=== PATIENT | female | born 1955 | race Caucasian/White ===

== ENCOUNTER 2025-05-15 14:59 | Inpatient (IN) ==
[2025-05-15 16:31] LABS: Hematocrit (blood only) 31.3 % (37.0-47.0); Hemoglobin 10.2 g/dL (12.0-16.0); Mean Corpuscular Hemoglobin 31.5 pg (25.0-34.0); Mean Corpuscular Volume 96.6 fL (80.0-100.0); Platelet Count 411 K/uL (130-400); RDW Standard Deviation 50.4 fL (36.4-46.3); Red Blood Count 3.24 M/uL (4.20-5.40)
[2025-05-15 16:42] LABS: Base Excess VBG 1.3 mEq/L; HCO3 VBG 27 mmol/L; Oxygen Saturation VBG 71.0 %; PCO2 VBG 47 mmHg (38-50); PO2 VBG 38 mmHg; pH VBG 7.37 (7.36-7.41)
[2025-05-15 16:44] LABS: Alanine Aminotransferase 13.0 U/L (7-52); Albumin Globulin Ratio 0.8 (0.9-2); Albumin Level 2.7 gm/dl (3.4-5.0); Alkaline Phosphatase 65.0 U/L (34-104); Anion Gap 7.0 (3-11); Bilirubin,Total 0.2 mg/dl (0.2-1.0); Blood Urea Nitrogen 41.0 mg/dl (6-23); Calcium 8.9 mg/dl (8.6-10.3); Carbon Dioxide 26.0 mmol/L (21-32); Chloride 101.0 mmol/L (98-107); Creatinine Clr Calc Pharmacy 19.7 ml/min; Globulin 3.4 gm/dl (2.5-4.0); Glucose 165.0 mg/dl (70-99(Fasting)); Lipase 17.0 U/L (11-82); Magnesium 2.0 mg/dl (1.7-2.4); Potassium 4.8 mmol/L (3.5-5.1); Sodium 134.0 mmol/L (136-145); Total Protein 6.1 gm/dl (6.0-8.3)
[2025-05-15 16:54] LABS: White Blood Count 10.89 K/ul (4.8-10.8)
[2025-05-15 16:58] LABS: Acanthocytes 1+; Basophilic Stippling 1+; Immature Granulocytes # (auto) 0.04 K/uL (0.01-0.20); Immature Granulocytes % (auto) 0.4 %; Polychromasia 1+
[2025-05-15 17:00] LABS: Thyroid Stimulating Hormone 7.613 uIu/ml (0.300-4.500)
[2025-05-15 17:35] LABS: T4 Free Thyroxine 1.15 ng/dl (0.61-1.60)
--- NOTE | 2025-05-15 17:56 | Emergency Department Note ---
ED Visit Note I was consulted by the Advanced Practice Provider, MISSY Barone. I performed a substantive portion of the visit. This includes aspects of: History: Patient is a 69-year-old female presenting with left arm swelling. Patient was recently at [facility] for seizure-like activity. She reportedly has been having recent falls and was started on Keppra and had workup done at the outpatient facility. She was discharged today from the hospital but family was concerned about her and receiving appropriate care and brought her to the ER. MDM: Laboratory workup in the emergency department showed a slightly elevated white blood cell count. Creatinine is elevated 2.99. Troponin also elevated at 61, but EKG negative for any acute ischemic changes. [facility] to be [facility] for further evaluation and management. .
--- NOTE | 2025-05-15 18:11 | History & Physical Report ---
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 R29.818 LAKISHA (obstructive sleep apnea) G47.33 Frequent falls R29.6 CAD (coronary artery disease) I25.10 Status post splenectomy Z90.81 Additional Codes Prolonged Care Time - Prolonged Care Time: Yes ([id number]) (10) CKD (chronic kidney disease) Chronic kidney disease stage: unspecified stage Qualified Code(s): N18.9 - Chronic kidney disease, unspecified
--- NOTE | 2025-05-15 18:16 | Emergency Department Note ---
Impression & Plan CKD (chronic kidney disease), Progressive neurologic decline ED Provider Note CHIEF COMPLAINT: Frequent falls, altered mental status, seizure-like activity HISTORY OF PRESENTING ILLNESS: Patient is a 69-year-old female presents to the emergency department today for complaints of frequent falls, altered mental status, seizure-like activity, left arm pain. Patient's daughter reports and in summary, that over the past year the patient has had increased falls and some that caused traumatic injury requiring spleen removal. Over the past several months patient's and daughter both report that she has had seizure-like activity. About 2 weeks ago the patient's reports that he had woken up in the morning and found all the lights in the house on but was unable to find the patient. He states he walked out of the garage and she had been laying outside on the garage floor for an unknown amount of time. Patient was taken to [facility] and admitted. She was discharged from [facility]' today and brought here to [facility] for further evaluation. Over her stay at [facility] it appears the kidneys renal function has decreased with documented creatinine of 6. She had been started on Keppra 1 week ago due to concern for the seizure-like activity. While at [facility] where she has had EEGs, MRIs of the brain, and significant workups without any findings. Patient denies chest pain, sob, breathing difficulties, abdominal pain, headache, fevers/chills, nausea, vomiting, lightheadedness, dizziness, blurred vision. She does complain of left arm pain where she had a previous IV site that has caused erythema and swelling. REVIEW OF SYSTEMS: See HPI for pertinent positives and pertinent negatives. ALLERGIES: See below MEDICATIONS: See below PAST MEDICAL HISTORY: See below PHYSICAL EXAM: VITALS: Vitals are noted on the nurse's note and reviewed by myself. GENERAL: Non toxic, in no acute distress, non-diaphoretic. SKIN: Capillary refill <2 sec. EYES: PERRLA. EOMI. Conjunctivae without injection, sclerae without icterus. NOSE: Patent without discharge. MOUTH: Mucous membranes moist. Uvula midline. Airway patent. NECK: Supple without nuchal rigidity. HEART: Regular rate and rhythm without murmurs gallops or rubs. LUNGS: Clear to auscultation bilaterally without wheezes, rales or rhonchi. No retractions or accessory muscle use. ABDOMEN: Positive bowel sounds x 4. Normal tympanic percussion. Soft, nontender to palpation. MUSCULOSKELETAL: No gross musculoskeletal defects. NEURO: Patient was alert and oriented. No focal neurological deficits. DIFFERENTIAL DIAGNOSIS: Seizures, encephalopathy, metabolic encephalopathy, electrolyte abnormalities, hypothyroidism, hyperthyroidism, stroke, TIA, among others. ED COURSE AND MEDICAL DECISION MAKING: HISTORY FROM INDEPENDENT HISTORIAN: History was provided by the patient and daughter and who are at bedside and secondary historians. MONITOR: Continuous health information administrator: Order was placed for continuous health information administrator. Patient was placed on the health information administrator and continuous pulse ox. Patient was noted to be in normal sinus rhythm at an initial rate of 61 bpm per my interpretation. EKG: EKG was interpreted by myself as normal sinus rhythm at a rate of 64 bpm. INTERPRETATION OF LABS: I interpreted the labs with full lab results as below in the lab section of this note. Laboratory results pertinent to the emergent complaint are discussed in the MDM section below. The patient was advised to follow up with their PCP and/or specialist(s) for further outpatient monitoring and management of any abnormal results. INTERPRETATION OF IMAGING: Imaging studies were interpreted by myself and read by radiology as per the imaging section of this note. The patient was advised to follow up with their PCP and/or specialist(s) for further outpatient management of any non-emergent abnormal findings. CHRONIC MEDICAL/SOCIAL CONDITIONS AFFECTING CARE: Chronic health issues that have been ongoing for the patient. Encephalopathy concerns. Recent and frequent hospital admissions. EXTERNAL RECORDS REVIEWED: Patient's been [facility] records from 05/12/2025 to 05/15/2025 including labs and imaging studies. ESCALATION OF CARE CONSIDERED: I considered admission on this patient due to ongoing neurological complaints. CONSULTATIONS: I had a meaningful discussion about this patient with Dr. Hayes who agrees with my assessment and the treatment plan. SUMMARY: I examined the patient for complaints of neurological decline. A physical exam and history were performed. Nursing notes, EMR, and medication list were personally reviewed. Patient presents appearing well and hemodynamically stable. Was just d/c from [facility] and brought here for further evaluation. I reviewed the patients medical history and recent hospitalization from [facility]. Patients daughter has discussed case with Dr. Walker for plan for admission. Will do a cardiac workup. Discussed CTs of head but family reluctant as she has aready had CT and MRIs with worsening renal function. Will obtain images from [facility] and hold on CTs. CBC with mild leukocytosis with white blood cell count of 10.89. Hemoglobin 10.2 without thrombocytopenia. Venous blood gas is normal. CMP without electrolyte abnormalities. Creatinine 2.99 and BUN 41. Troponin noted to be 55.4 however patient is without chest pain or shortness of breath and EKG without signs of active ischemia. BNP was 117. TSH was 7.613. Magnesium 2.0. Keppra level ordered and sent out. I spoke with Dr. Walker for admission and the patient was accepted. X-ray and extremity venous study was still pending on admission. Patient declined any pain medications or antiemetics here in the emergency department today. DIAGNOSIS: CKD, neurological decline TREATMENT PLAN/DISCHARGE INSTRUCTIONS: Admit to hospitalist services. The chart was completed utilizing [employer] Speech voice recognition software.Grammatical errors, random word insertions, pronoun errors, and incomplete sentences are an occasional consequence of this system due to software limitations, ambient noise, and hardware issues.Any formal questions or concerns about the content, text, or information contained within the body of this dictation should be directly addressed to the physician for clarification. Past Med/Surg History Problem List (Updated 05/15/25 @ 21:51 by Geovani Rubin DO) Type 1 diabetes Elevated troponin Status post splenectomy Rib fractures Obesity Left arm pain Progressive neurologic decline (Acute) CKD (chronic kidney disease) (Acute) Social History Smoking Status: Never smoker Allergies Allergies Allergy/AdvReac Type Severity Reaction Status Date / Time allopurinol Allergy Unknown Unknown Verified 05/15/25 18:32 atorvastatin Allergy Unknown Unknown Verified 05/15/25 18:32 cephalexin Allergy Unknown Unknown Verified 05/15/25 18:32 ciprofloxacin Allergy Unknown Unknown Verified 05/15/25 18:32 Penicillins Allergy Unknown Unknown Verified 05/15/25 18:32 sulfamethoxazole Allergy Unknown Unknown Verified 05/15/25 18:32 [From Sulfamethoxazole-Trimethoprim] trimethoprim Allergy Unknown Unknown Verified 05/15/25 18:32 [From Sulfamethoxazole-Trimethoprim] Home Meds Home Medications Medication Instructions Recorded Confirmed acetaminophen 500 mg tablet 1,000 mg PO Q6H PRN Pain 05/15/25 05/15/25 (Tylenol Extra Strength) amlodipine 2.5 mg tablet 2.5 mg PO QAM 05/15/25 05/15/25 aspirin 81 mg tablet,delayed 81 mg PO DAILY 05/15/25 05/15/25 release biotin 10 mg tablet 10 mg PO DAILY 05/15/25 05/15/25 calcitriol 0.25 mcg capsule 0.25 mcg PO QAM 05/15/25 05/15/25 cholecalciferol (vitamin D3) 125 125 mcg PO DAILY 05/15/25 05/15/25 mcg (5,000 unit) tablet (Vitamin D3) ezetimibe 10 mg tablet (Zetia) 10 mg PO HS 05/15/25 05/15/25 famotidine 20 mg tablet (Pepcid) 20 mg PO BID 05/15/25 05/15/25 ferrous sulfate 325 mg (65 mg 325 mg PO DAILY 05/15/25 05/15/25 iron) tablet folic acid 1 mg tablet 1 mg PO DAILY 05/15/25 05/15/25 furosemide 20 mg tablet (Lasix) 20 mg PO DAILY 05/15/25 05/15/25 gabapentin 100 mg capsule 100 mg PO BID 05/15/25 05/15/25 insulin glargine U-300 conc 300 30 unit subcut BID 05/15/25 05/15/25 unit/mL (3 mL) subcutaneous pen (Toujeo Max U-300 SoloStar) insulin lispro 100 unit/mL 1 sliding scale dose subcut TIDM 05/15/25 05/15/25 subcutaneous solution (Humalog U-100 Insulin) latanoprost 0.005 % eye drops 1 drp OPB HS 05/15/25 05/15/25 levetiracetam 500 mg tablet 500 mg PO BID 05/15/25 05/15/25 levothyroxine 150 mcg tablet 150 mcg PO DAILYBB 05/15/25 05/15/25 losartan 100 mg tablet 100 mg PO DAILY 05/15/25 05/15/25 metoprolol tartrate 25 mg tablet 25 mg PO BID 05/15/25 05/15/25 omega-3 fatty acids 1,000 mg 1,000 mg PO DAILY 05/15/25 05/15/25 capsule pantoprazole 40 mg tablet,delayed 40 mg PO DAILY 05/15/25 05/15/25 release sennosides 8.6 mg-docusate sodium 2 tab-cap PO HS 05/15/25 05/15/25 50 mg tablet (Senna Plus) simvastatin 20 mg tablet 20 mg PO HS 05/15/25 05/15/25 turmeric root extract 500 mg tablet 1,000 mg PO DAILY 05/15/25 05/15/25 vitamin B complex 1 tab PO HS 05/15/25 05/15/25 Results & Data (ED) Vital Signs Vital Signs - 24 hr 05/15/25 15:06 05/15/25 15:23 05/15/25 16:00 Temperature 36.1 C L Temperature Source Temporal Artery Scan Pulse Rate 61 60 64 Respiratory Rate 18 13 Blood Pressure 164/71 H 143/65 H Blood Pressure Mean 102 90 Pulse Oximetry 98 94 Sepsis Recent Fever Within 48 Hours No Sepsis New/Unexplained Change in Mental Status No Sepsis Action Taken by Nursing No Action Required 05/15/25 16:11 05/15/25 16:30 05/15/25 16:58 Temperature Temperature Source Pulse Rate 65 61 Respiratory Rate 15 12 Blood Pressure 140/70 137/66 Blood Pressure Mean 103 107 Pulse Oximetry 98 99 97 Sepsis Recent Fever Within 48 Hours Sepsis New/Unexplained Change in Mental Status Sepsis Action Taken by Nursing 05/15/25 18:30 05/15/25 19:00 Temperature Temperature Source Pulse Rate 71 67 Respiratory Rate 14 13 Blood Pressure 172/75 H 167/72 H Blood Pressure Mean 121 126 Pulse Oximetry 98 98 Sepsis Recent Fever Within 48 Hours Sepsis New/Unexplained Change in Mental Status Sepsis Action Taken by Nursing Laboratory Data 05/15/25 15:40 05/15/25 15:40 Lab Results 05/15/25 05/15/25 05/15/25 Range/Units 15:40 17:57 19:41 WBC 10.89 H (4.8-10.8) K/ul RBC 3.24 L (4.20-5.40) M/uL Hgb 10.2 L (12.0-16.0) g/dL Hct 31.3 L (37.0-47.0) % MCV 96.6 (80.0-100.0) fL MCH 31.5 (25.0-34.0) pg MCHC 32.6 (32.0-36.0) g/dL RDW Std Deviation 50.4 H (36.4-46.3) fL RDW Coeff of Shruthi 14.3 (11.5-14.5) % Plt Count 411 H (130-400) K/uL MPV 11.7 (9.4-12.4) fL Immature Gran % (Auto) 0.4 % Neut % (Auto) 75.1 % Lymph % (Auto) 9.2 % Izard % (Auto) 11.8 % Eos % (Auto) 2.8 % Baso % (Auto) 0.7 % Neut # (Auto) 8.18 H (1.40-6.50) K/uL Lymph # (Auto) 1.00 L (1.20-3.40) K/uL Izard # (Auto) 1.29 H (0.11-0.59) K/uL Eos # (Auto) 0.30 (0.00-0.50) K/uL Baso # (Auto) 0.08 (0.00-0.20) K/uL Immature Gran # (Auto) 0.04 (0.01-0.20) K/uL Polychromasia 1+ Basophilic Stippling 1+ Acanthocytes (Spur) 1+ ESR 86 H (0-30) mm/hr Sodium 134 L (136-145) mmol/L Potassium 4.8 (3.5-5.1) mmol/L Chloride 101 (98-107) mmol/L Carbon Dioxide 26 (21-32) mmol/L Anion Gap 7 (3-11) BUN 41 H (6-23) mg/dl Creatinine 2.99 H (0.6-1.2) mg/dl Est Cr Clr Drug Dosing 19.7 ml/min eGFR 16.49 BUN/Creatinine Ratio 13.7 (10-20) Glucose 165 H (70-99(Fasting)) mg/dl Uric Acid 5.1 (2.6-7.2) mg/dl Calcium 8.9 (8.6-10.3) mg/dl Phosphorus 4.9 (2.5-4.9) mg/dl Magnesium 2.0 (1.7-2.4) mg/dl Total Bilirubin 0.2 (0.2-1.0) mg/dl AST 17 (13-39) U/L ALT 13 (7-52) U/L Alkaline Phosphatase 65 (34-104) U/L Ammonia 18.0 (18-72) umol/L Troponin I High Sens 61.0 H* 55.4 H* (0-14) pg/ml C-Reactive Protein 10.30 H (0-0.5) mg/dl B-Natriuretic Peptide 117 H (0-100) pg/ml Total Protein 6.1 (6.0-8.3) gm/dl Albumin 2.7 L (3.4-5.0) gm/dl Globulin 3.4 (2.5-4.0) gm/dl Albumin/Globulin Ratio 0.8 L (0.9-2) Lipase 17 (11-82) U/L Procalcitonin 0.12 (0-0.5) ng/ml TSH 7.613 H (0.300-4.500) uIu/ml Free T4 1.15 (0.61-1.60) ng/dl Administered Medications Sodium Chloride (Nss) 1,000 mls @ 80 mls/hr IV .[id number] DILLON Stop: 05/16/25 08:29 Last Admin: 05/15/25 21:09 Dose: 80 mls/hr Documented By: SW Discontinued Medications Hydrocodone Bitart/Acetaminophen (Hydrocodone/Acetaminophen 7.5/325mg Tab) 1 tab PO NOW STA Stop: 05/15/25 18:23 Last Admin: 05/15/25 18:35 Dose: 1 tab Documented By: akv Imaging Data Radiologist's Impression: Chest X-Ray 05/15/25 16:11 Clinical History: Chest pain Technique: A frontal view of the chest was obtained Findings: There is a small left pleural effusion. There is left lower lobe opacity that could be due to either atelectasis or pneumonia. The heart is mildly enlarged. No definite pneumothorax is seen. There is no definite pulmonary nodule. There is an apparent all fracture of the left seventh rib. There is a right chest port port with its tip in the SVC Impression: 1. Small left pleural effusion 2. Left lower lobe opacity that could be due to either atelectasis or pneumonia 3. Mild cardiomegaly ACT 112: Positive. There are findings on this exam that require communication between the performing entity and the patient following Patient Test Result Information Act ([place] ACT 112) guidelines. Electronically signed by Giovanni Hicks 05-15-2025 6:43 PM Extremity Venous Study 05/15/25 16:14 Technique: Doppler sonography was performed of the left arm veins Findings: There is apparent occlusive thrombus in the left cephalic vein, extending approximately 5 cm in length The left jugular, subclavian, axillary, brachial, basilic, radial, and ulnar veins all appear patent with normal anechoic lumens and full compressibility. Expected Doppler waveforms were noted. No definite soft tissue mass or fluid collection is seen. Impression: 1. SVT involving the left cephalic vein 2. No evidence of left arm DVT ACT 112: Positive. There are findings on this exam that require communication between the performing entity and the patient following Patient Test Result Information Act ([place] ACT 112) guidelines. Electronically signed by Giovanni Hicks 05-15-2025 6:11 PM Humerus X-Ray 05/15/25 18:21 INDICATION: Trauma TECHNIQUE: 2 views of the left humerus were obtained. COMPARISON: None FINDINGS: No displaced acute osseous process is identified. IMPRESSION: No displaced acute osseous process is identified. Limited evaluation of the left elbow. Please refer to separately performed elbow CT for further details. Electronically signed by Robert Everett 05-15-2025 8:40 PM Shoulder X-Ray 05/15/25 18:21 INDICATION: Trauma TECHNIQUE: 3 views of the left shoulder were obtained. COMPARISON: None FINDINGS: No displaced acute osseous process is identified in the left shoulder. Age-indeterminate and possibly acute traumatic fractures of the left seventh through the ninth ribs. IMPRESSION: No displaced acute osseous process is identified in the left shoulder. Age-indeterminate and possibly acute traumatic fractures of the left seventh through the ninth ribs. Electronically signed by Robert Everett 05-15-2025 8:40 PM Discharge Plan Visit Data Chief Complaint: Arm Pain Stated Complaint: FREQ FALLS, AMS SEIZURE LIKE LT ARM UNABLE TO MOVE ED Provider: Maryana Hayes ED Midlevel Provider: Aleida Veras Discharge Problem: CKD (chronic kidney disease), Progressive neurologic decline Patient Disposition: Admitted As Inpatient Condition: Good Discharge Problem: CKD (chronic kidney disease) Qualifiers: Chronic kidney disease stage: unspecified stage Qualified Code(s): N18.9 - Chronic kidney disease, unspecified
[2025-05-15] MEDS: HYDROCODONE/ACETAMINOPHEN 7.5/325MG TAB PO STA (18:35)
--- NOTE | 2025-05-15 18:44 | XRay Report ---
Clinical History: Chest pain Technique: A frontal view of the chest was obtained Findings: There is a small left pleural effusion. There is left lower lobe opacity that could be due to either atelectasis or pneumonia. The heart is mildly enlarged. No definite pneumothorax is seen. There is no definite pulmonary nodule. There is an apparent all fracture of the left seventh rib. There is a right chest port port with its tip in the SVC Impression: 1. Small left pleural effusion 2. Left lower lobe opacity that could be due to either atelectasis or pneumonia 3. Mild cardiomegaly ACT 112: Positive. There are findings on this exam that require communication between the performing entity and the patient following Patient Test Result Information Act ([place] ACT 112) guidelines. Electronically signed by Giovanni Hicks 05-15-2025 6:43 PM
[2025-05-15 19:48] LABS: Uric Acid 5.1 mg/dl (2.6-7.2)
--- NOTE | 2025-05-15 20:40 | XRay Report ---
INDICATION: Trauma TECHNIQUE: 2 views of the left humerus were obtained. COMPARISON: None FINDINGS: No displaced acute osseous process is identified. IMPRESSION: No displaced acute osseous process is identified. Limited evaluation of the left elbow. Please refer to separately performed elbow CT for further details. Electronically signed by Robert Everett 05-15-2025 8:40 PM
--- NOTE | 2025-05-15 20:40 | XRay Report ---
INDICATION: Trauma TECHNIQUE: 3 views of the left shoulder were obtained. COMPARISON: None FINDINGS: No displaced acute osseous process is identified in the left shoulder. Age-indeterminate and possibly acute traumatic fractures of the left seventh through the ninth ribs. IMPRESSION: No displaced acute osseous process is identified in the left shoulder. Age-indeterminate and possibly acute traumatic fractures of the left seventh through the ninth ribs. Electronically signed by Robert Everett 05-15-2025 8:40 PM
[2025-05-15] MEDS: SODIUM CHLORIDE 0.9% 1,000 ML IV SCH (21:09)
--- NOTE | 2025-05-15 21:27 | Orthopedic Consultation ---
Date of Consultation May 15, 2025 Assessment & Plan (1) Left arm pain: (2) Obesity: (3) Rib fractures: (4) Status post splenectomy: (5) Elevated troponin: (6) Type 1 diabetes: (7) CKD (chronic kidney disease): Plan Alina is a 61-year-old female who is quite medically complex who presents to the hospital via her family for second opinion after she was recently admitted to [facility]. As detailed in the HPI, the patient sustained a fall on 05/06/2025 with noted seizure activity and because of this she was admitted to the hospital in [place]. She had a trauma workup revealing acute rib fractures and she had workup for her seizures which was unrevealing. Patient developed left arm pain about 4 to 5 days ago and the patient and her family note that this coincided with placement of an IV in her left upper extremity. That IV site became red and inflamed and the IV site was then changed, however patient and her family were upset that nothing was being done about her arm pain and as such this prompted their presentation to [facility]. On my evaluation this afternoon, the patient does not appear floridly ill. She does appear to be in pain with regards to her left upper extremity. She does state that she is hungry and would like to eat some dinner. Her vital signs are reassuring and that her heart rate is less than 90, respirations less than 20, and she is afebrile. Her white blood cell count is less than 12. Her ESR and CRP are elevated and although these can signify infection, this can be a confusing picture given her recent hospitalization, her kidney failure, and her history of falls. Prior to my evaluation, the patient had x-rays of her shoulder and humerus as well as a CT scan of her elbow. No acute osseous abnormalities are identified. On my evaluation, the patient seem to be locating most of her pain in her shoulder. With isolated motion of the whole wrist and elbow, she was relatively pain-free, however with attempted motion of her shoulder, she did have significant pain. Given her elevated inflammatory markers, and without another notable source of this pain, I did recommend arthrocentesis of the left shoulder to rule out infection versus gout. See separate procedure note for full details, however the patient was in agreement. We returned approximately 10 cc of cloudy appearing fluid which was sent to the lab for analysis. On the off chance that this does represent an infection, this may require operative intervention. Will keep the patient n.p.o. after midnight tonight pending the evaluation of these lab results. Based on her clinical presentation, and considering this pain has been present for about 5 days, my suspicion is not infection, rather that this could make the gout. Another possible consideration for her left upper extremity pain might be something intra-abdominal. The patient did have a history of a splenectomy. Consider further workup with a CT scan of the abdomen. Also, the patient shoulder aspiration is negative, some of the pain in her left upper extremity may be coming from her new rib fractures on that same side. Further recommendations to follow results of the fluid analysis. History of Present Illness Reason for Consultation: left arm pain Requesting Physician: Dr Walker History of Present Illness Patient is a 69-year-old female presents to the emergency department today for left arm pain. She also has complaints of frequent falls, altered mental status, seizure-like activity in recent history. Patient's daughter was previously at bedside and reported the following to the ER staff and myself over the phone when I contacted her: Over the past year the patient has had increased falls. One of these falls in February of this year caused traumatic injury requiring spleen removal. Over the past several months patient's and daughter both report that she has had seizure-like activity. About 2 weeks ago the patient's reports that he had woken up in the morning and found all the lights in the house on but was unable to find the patient. He walked out of the garage and she had been laying outside on the garage floor for an unknown amount of time this was on 05/06/25. Patient was taken to [facility] and admitted. While admitted there, she had a trauma workup done which was positive for multiple left-sided rib fractures, some of which were old from the fall that occurred in February but the patient's daughter notes that she was told that her mother had sustained 1 or 2 new ones. And she had a workup for seizures which was negative. Her family was displeased with the care she was receiving in [place] so she was discharged from [facility] today and brought here to [facility] for further evaluation. Over her stay at [facility] it appears the kidneys renal function has decreased with documented creatinine of 6. She had been started on Keppra 1 week ago due to concern for the seizure-like activity. While at [facility] where she has had EEGs, MRIs of the brain, and significant workups without any findings. Patient denies chest pain, sob, breathing difficulties, abdominal pain, headache, fevers/chills, nausea, vomiting, lightheadedness, dizziness, blurred vision. She does complain of left arm pain where she had a previous IV site that has caused erythema and swelling. With regards of left arm pain, the patient and her daughter note that this started over the weekend. The patient states that her entire left arm hurts and it began at the site of an IV that was placed in her left upper extremity while admitted at the other hospital. Patient notes pain in her left upper extremity anytime her arm is moved. Allergies Allergy/AdvReac Type Severity Reaction Status Date / Time allopurinol Allergy Unknown Unknown Verified 05/15/25 18:32 atorvastatin Allergy Unknown Unknown Verified 05/15/25 18:32 cephalexin Allergy Unknown Unknown Verified 05/15/25 18:32 ciprofloxacin Allergy Unknown Unknown Verified 05/15/25 18:32 Penicillins Allergy Unknown Unknown Verified 05/15/25 18:32 sulfamethoxazole Allergy Unknown Unknown Verified 05/15/25 18:32 [From Sulfamethoxazole-Trimethoprim] trimethoprim Allergy Unknown Unknown Verified 05/15/25 18:32 [From Sulfamethoxazole-Trimethoprim] Home Medications Medication Instructions Recorded Confirmed Type acetaminophen 500 mg tablet 1,000 mg PO Q6H PRN Pain 05/15/25 05/15/25 History (Tylenol Extra Strength) amlodipine 2.5 mg tablet 2.5 mg PO QAM 05/15/25 05/15/25 History aspirin 81 mg tablet,delayed 81 mg PO DAILY 05/15/25 05/15/25 History release biotin 10 mg tablet 10 mg PO DAILY 05/15/25 05/15/25 History calcitriol 0.25 mcg capsule 0.25 mcg PO QAM 05/15/25 05/15/25 History cholecalciferol (vitamin D3) 125 125 mcg PO DAILY 05/15/25 05/15/25 History mcg (5,000 unit) tablet (Vitamin D3) ezetimibe 10 mg tablet (Zetia) 10 mg PO HS 05/15/25 05/15/25 History famotidine 20 mg tablet (Pepcid) 20 mg PO BID 05/15/25 05/15/25 History ferrous sulfate 325 mg (65 mg 325 mg PO DAILY 05/15/25 05/15/25 History iron) tablet folic acid 1 mg tablet 1 mg PO DAILY 05/15/25 05/15/25 History furosemide 20 mg tablet (Lasix) 20 mg PO DAILY 05/15/25 05/15/25 History gabapentin 100 mg capsule 100 mg PO BID 05/15/25 05/15/25 History insulin glargine U-300 conc 300 30 unit subcut BID 05/15/25 05/15/25 History unit/mL (3 mL) subcutaneous pen (Toujeo Max U-300 SoloStar) insulin lispro 100 unit/mL 1 sliding scale dose subcut TIDM 05/15/25 05/15/25 History subcutaneous solution (Humalog U-100 Insulin) latanoprost 0.005 % eye drops 1 drp OPB HS 05/15/25 05/15/25 History levetiracetam 500 mg tablet 500 mg PO BID 05/15/25 05/15/25 History levothyroxine 150 mcg tablet 150 mcg PO DAILYBB 05/15/25 05/15/25 History losartan 100 mg tablet 100 mg PO DAILY 05/15/25 05/15/25 History metoprolol tartrate 25 mg tablet 25 mg PO BID 05/15/25 05/15/25 History omega-3 fatty acids 1,000 mg 1,000 mg PO DAILY 05/15/25 05/15/25 History capsule pantoprazole 40 mg tablet,delayed 40 mg PO DAILY 05/15/25 05/15/25 History release sennosides 8.6 mg-docusate sodium 2 tab-cap PO HS 05/15/25 05/15/25 History 50 mg tablet (Senna Plus) simvastatin 20 mg tablet 20 mg PO HS 05/15/25 05/15/25 History turmeric root extract 500 mg tablet 1,000 mg PO DAILY 05/15/25 05/15/25 History vitamin B complex 1 tab PO HS 05/15/25 05/15/25 History Patient History Social History Smoking Status: Never smoker Review of Systems Review of Systems: All systems reviewed & are unremarkable except as noted in HPI & below Physical Exam Physical Exam: On physical examination, the patient has an area of erythema in her mid forearm at the site of her previous IV stick. This area has been marked and the erythema is well within the purple marker. Patient has diffuse edema to her left hand extending to the level of her mid forearm. She has no pain with passive range of motion of the fingers or wrist. No pain with passive range of motion of the elbow. She does have pain with passive range of motion of the shoulder. She has intact sensation C5-T1. She has intact AIN, PIN, radial, median, ulnar nerve motor function. She has palpable radial pulse. Results & Data Vital Signs (Past 12 Hours) Vital Signs Temp Pulse Pulse Resp BP BP Pulse Ox 05/15/25 20:00 65 18 159/72 H 97 05/15/25 19:57 67 05/15/25 19:00 67 13 167/72 H 98 05/15/25 18:30 71 14 172/75 H 98 05/15/25 16:58 61 12 137/66 97 05/15/25 16:30 65 15 140/70 99 05/15/25 16:11 98 05/15/25 16:00 64 13 143/65 H 94 05/15/25 15:23 60 05/15/25 15:06 36.1 C L 61 18 164/71 H 98 O2 Del Method 05/15/25 20:00 Room Air 05/15/25 19:57 05/15/25 19:00 05/15/25 18:30 05/15/25 16:58 05/15/25 16:30 05/15/25 16:11 05/15/25 16:00 05/15/25 15:23 05/15/25 15:06 Laboratory Results White blood cell count 10.9 ESR 86 mm/h CRP 10.30 mg/dL Troponin 55.4 pg/mL Creatinine 2.99 mg/dL Diagnostic Findings X-rays of the left shoulder and humerus were personally interpreted and reviewed. These demonstrate no acute osseous abnormalities. CT scan of the left elbow was personally interpreted and reviewed. These demonstrate no acute osseous abnormalities. (7) CKD (chronic kidney disease) Chronic kidney disease stage: unspecified stage Qualified Code(s): N18.9 - Chronic kidney disease, unspecified
[2025-05-15] MEDS ORDERED: ONDANSETRON INJ 2 MG/ML 2 ML VIAL IV PRN (22:20)
--- NOTE | 2025-05-15 22:28 | Procedure Note ---
Procedure Note Date of Service May 15, 2025 Note Left shoulder arthrocentesis procedure note Surgeon: Geovani Rubin DO Preop diagnosis: Left shoulder pain Postop diagnosis: Same Indications: 69-year-old female with left shoulder pain without obvious signs of infection, but with elevated inflammatory markers considering no other known cause of left shoulder pain, my recommendation is for arthrocentesis of the left shoulder. I did discuss with the patient the risk the procedure which include but are not limited to loss of life/limb, infection, need for surgery in the future, bleeding, introduction of infection into the joint, dry tap, inconclusive results. She understood the risks and wished to proceed. Procedure: The anatomy of the left upper extremity was marked out and the posterior approach to the glenohumeral joint 2 cm distal and medial to the lateral tip of the acromion was identified. The posterior aspect the left shoulder was prepped and draped in standard sterile fashion using ChloraPrep. An 18-gauge spinal needle was introduced into the glenohumeral joint. 10 cc of cloudy appearing joint fluid was returned. The syringe was then attached, labeled the patient's sticker, and sent to lab for analysis. Patient tolerated the procedure well without any immediate signs of complication. Postop plan: The patient will be n.p.o. after midnight pending the results of the fluid analysis. Coding
[2025-05-15] MEDS: DAPTOmycin 500 MG in SYRINGE 0 ML IV SCH (23:01)
[2025-05-15] MEDS: DOCUSATE SODIUM/SENNA 50/8.6MG TAB PO SCH (23:11)
[2025-05-15] MEDS: ACETAMINOPHEN 500 MG TAB PO SCH (23:11)
[2025-05-15 23:14] LABS: Color Synovial Fluid WHI; Mononuclear WBC Synovial 7.6 %; Polynuclear WBC Synovial 92.4 %; RBC Synovial Fluid Auto 10000 /uL; Source Synovial Fluid Shoulder; WBC Synovial Fluid Auto 75250 /ul (0-200)
[2025-05-15] MEDS: LANTUS PER UNIT CHARGE SQ SCH (23:17)
[2025-05-15] MEDS: INSULIN ASPART PER UNIT CHARGE SC SCH (23:18)
[2025-05-15] MEDS: LATANOPROST 0.005% OP SOLN 2.5 ML BTL OPB SCH (23:21)
[2025-05-15] MEDS: levETIRAcetam 500 MG TAB PO SCH (23:25)
[2025-05-15] MEDS: SIMVASTATIN 20 MG TAB PO SCH (23:25)
[2025-05-15] MEDS: EZETIMIBE 10 MG TAB PO SCH (23:25)
[2025-05-15] MEDS: GABAPENTIN 100 MG CAP PO SCH (23:25)
[2025-05-15] MEDS: METOPROLOL TARTRATE 25 MG TAB PO SCH (23:25)
--- NOTE | 2025-05-16 00:45 | CT Scan Report ---
Exam(s): CT LEFT ELBOW Without Contrast EXAM: CT Left Upper Extremity Without Intravenous Contrast, Elbow CLINICAL HISTORY: Reason for exam: severe elbow pain, swelling; effusion? Fracture?. TECHNIQUE: Axial computed tomography images of the left elbow without intravenous contrast. CTDI is 26.22 mGy and DLP is 665.73 mGy-cm. Automated exposure control was utilized for the study. A dose lowering technique was utilized adhering to the principles of ALARA. COMPARISON: X-rays dated 05/15/2025. FINDINGS: Artifact degrades image quality limiting the exam. Bones/joints: No acute fracture. No dislocation. There is an olecranon spur. Soft tissues: There is soft tissue swelling and edema. There are soft tissue calcifications noted. The visualized musculature is grossly unremarkable.. IMPRESSION: Limited exam. Soft tissue edema and swelling. Olecranon spur. There is soft tissue calcifications which may represent calcification of the triceps tendon. If further evaluation is clinically necessary, consider correlation with MRI Electronically signed by: Mainor Cannon MD 05/16/25 00:44 AM
--- NOTE | 2025-05-16 03:31 | Magnetic Resonance Report ---
EXAM: MR shoulder LT wo con CLINICAL HISTORY: shoulder pain, likely septic arthritis TECHNIQUE: Multisequential and multiplanar images of the left shoulder were submitted for review without contrast. COMPARISON: None. FINDINGS: Subscapularis tendon shows increased T2 signal with mild thickening, consistent with tendinopathy. Near-complete tear of supraspinatus tendon is seen over a length of approximately 2 cm with an AP diameter of 2.3 cm. Ill-defined bone marrow edema is seen within the superior facet of greater tuberosity of humerus at the articular attachment of supraspinatus tendon, with associated cystic changes and cortical erosion. Moderate glenohumeral joint effusion is present. Subacromial/subdeltoid bursa shows hyperintense fluid on T2-weighted and PDFS sequences, consistent with bursitis. Subcoracoid bursa demonstrates hyperintense fluid on T2-weighted and PDFS sequences, consistent with bursitis. Osteoarthritic changes seen in acromioclavicular joint in form of reduced joint space, periarticular osteophytes and minimal joint effusion. There is a Type II acromion present. Few axillary lymph nodes seen, measuring 15 x 11 mm is noted. The coracohumeral distance and acromiohumeral space is normal. The infraspinatus, teres minor and biceps tendon appear normal. No evidence of tendinosis, tenosynovitis or tear is seen. Labrum appears normal. No evidence of tear or paralabral cyst is seen. The articular cartilage overlying the glenoid fossa is normal. No loose body or debris present within the glenohumeral joint. IMPRESSION: ? Moderate glenohumeral joint effusion. ? Subacromial/subdeltoid and subcoracoid bursitis. ? Subscapularis tendinopathy. ? Near-complete tear of supraspinatus tendon. ? Bone marrow edema with cystic changes and erosion in superior facet of greater tuberosity. ? Early osteoarthritic changes in acromioclavicular joint. ? Few axillary lymph nodes. Electronically signed by Veto Aponte 05-16-2025 03:31 AM
[2025-05-16] MEDS: LEVOTHYROXINE SODIUM 150 MCG TABLET PO SCH (06:02)
[2025-05-16] MEDS ORDERED: HEPARIN 100 UNIT/ML 5ML FLUSH FLUSH PRN (06:15)
[2025-05-16 06:33] LABS: Anion Gap 8.0 (3-11); Blood Urea Nitrogen 37.0 mg/dl (6-23); Calcium 8.9 mg/dl (8.6-10.3); Carbon Dioxide 26.0 mmol/L (21-32); Chloride 102.0 mmol/L (98-107); Creatinine Clr Calc Pharmacy 22.8 ml/min; Glucose 252.0 mg/dl (70-99(Fasting)); Potassium 4.9 mmol/L (3.5-5.1); Sodium 136.0 mmol/L (136-145)
[2025-05-16 06:48] LABS: Hematocrit (blood only) 32.0 % (37.0-47.0); Hemoglobin 10.5 g/dL (12.0-16.0); Mean Corpuscular Hemoglobin 31.1 pg (25.0-34.0); Mean Corpuscular Volume 94.7 fL (80.0-100.0); Platelet Count 442 K/uL (130-400); RDW Standard Deviation 48.0 fL (36.4-46.3); Red Blood Count 3.38 M/uL (4.20-5.40); White Blood Count 11.89 K/ul (4.8-10.8)
--- NOTE | 2025-05-16 08:00 | Orthopedic Progress Note ---
Date of Service May 16, 2025 Assessment & Plan (1) Septic arthritis of shoulder, left: (2) Left arm pain: (3) Obesity: (4) Rib fractures: (5) Status post splenectomy: (6) Elevated troponin: (7) Type 1 diabetes: (8) CKD (chronic kidney disease): (9) CAD (coronary artery disease): (10) Seizure-like activity: (11) Hypothyroidism: Plan Alina is a 61-year-old female who is quite medically complex who presented to the to the hospital via her family for second opinion after she was recently admitted to [facility]. As detailed in the HPI, the patient sustained a fall on 05/06/2025 with noted seizure activity and because of this she was admitted to the hospital in [place]. She had a trauma workup revealing acute rib fractures and she had workup for her seizures which was unrevealing. Patient developed left arm pain about 4 to 5 days ago and the patient and her family note that this coincided with placement of an IV in her left upper extremity. That IV site became red and inflamed and the IV site was then changed, however patient and her family were upset that nothing was being done about her arm pain and as such this prompted their presentation to [facility]. On my evaluation last evening, the patient did not appear floridly ill. She did appear to be in pain with regards to her left upper extremity. Her vital signs were reassuring in that her heart rate is less than 90, respirations less than 20, and she is afebrile. Her white blood cell count is less than 12. Her ESR and CRP are elevated and although these can signify infection, this can be a confusing picture given her recent hospitalization, her kidney failure, and her history of falls. Prior to my evaluation, the patient had x-rays of her shoulder and humerus as well as a CT scan of her elbow. No acute osseous abnormalities were identified. On my evaluation, the patient seemed to be locating most of her pain in her shoulder. With isolated motion of the whole wrist and elbow, she was relatively pain-free, however with attempted motion of her shoulder, she did have significant pain. Given her elevated inflammatory markers, and without another notable source of this pain, I did recommend arthrocentesis of the left shoulder to rule out infection versus gout. Her fluid analysis returned with 75,000 white blood cells 92% of which were polymorphonuclear sites. Her Gram stain showed gram-positive cocci and many PMNs. Based on her aspiration results, I do believe this represents a septic shoulder. I do long discussion with the patient and her daughter regarding the nature of this condition. We discussed in great detail the pathoanatomy, pathophysiology, treatment options. I expressed to them that in general we attempt to get these patients to the operating room as quickly as possible for irrigation and debridement to prevent significant chondrolysis And worsening of the infection. This patient's arm pain seem to have started about 5 days ago, so I do suspect that she has already had significant chondrolysis. I expressed to the patient and her daughter that the plan would be for left shoulder irrigation and debridement with possible placement of a drain via an open or arthroscopic approach. We discussed a great detail the risks of the surgery which include but are not limited to loss of life/limb, DVT/PE, pain, infection, incomplete relief of pain, incomplete clearance of the infection, need for additional surgery, iatrogenic injury to bone/nerve/tendon/vessel. The alternative surgical management be for continued IV antibiotics or potentially serial aspirations. I believe this carries with it a higher risk of continued infec tion and incomplete relief of pain. After thorough discussion of the risk, benefits, alternatives to surgical management, the patient and her daughter were both interested in operative care. We will plan to take the patient to the operating room as quickly as possible once an OR is available. Surgical plan: Left shoulder open versus arthroscopic irrigation and debridement with possible drain placement. Please keep NPO. Start broad-spectrum antibiotics. Will require infectious disease consultation and likely long-term IV antibiotics via PICC line. Admission and Anticipated Discharge Date Admission Date: May 15, 2025 Subjective patient seen and examined in her hospital bed. She is sleeping comfortably. She notes continued pain in her left shoulder. Review of Systems Review of Systems: All systems reviewed & are unremarkable except as noted in HPI & below Physical Exam Physical Exam: On physical examination, the patient has an area of erythema in her mid forearm at the site of her previous IV stick. This area has been marked and the erythema is well within the purple marker. Patient has diffuse edema to her left hand extending to the level of her mid forearm. She has no pain with passive range of motion of the fingers or wrist. No pain with passive range of motion of the elbow. She does have pain with passive range of motion of the shoulder. She has intact sensation C5-T1. She has intact AIN, PIN, radial, median, ulnar nerve motor function. She has palpable radial pulse. Results & Data Vital Signs (Past 12 Hours) Vital Signs Temp Pulse Pulse Resp BP Pulse Ox Pulse Ox 05/16/25 07:21 37.4 C 66 12 147/61 H 94 05/16/25 02:40 37.1 C 68 18 148/71 H 95 05/15/25 22:59 37.3 C 73 20 158/65 H 94 05/15/25 22:20 94 05/15/25 21:37 77 05/15/25 21:30 05/15/25 21:30 37.3 C 70 14 162/67 H 94 05/15/25 20:00 65 18 159/72 H 97 05/15/25 19:57 67 O2 Del Method O2 Del Method 05/16/25 07:21 Room Air 05/16/25 02:40 Room Air 05/15/25 22:59 Room Air 05/15/25 22:20 Room Air 05/15/25 21:37 05/15/25 21:30 Room Air 05/15/25 21:30 Room Air 05/15/25 20:00 Room Air 05/15/25 19:57 Laboratory Results White blood cell count 11.89 Aspiration results: 75,000 white blood cells, 92% PMNs Diagnostic Findings MRI of the left shoulder personally interpreted and reviewed. Demonstrates a left shoulder joint effusion without any surrounding soft tissue abscess. There is interstitial tearing of the superior rotator cuff. (8) CKD (chronic kidney disease) Chronic kidney disease stage: unspecified stage Qualified Code(s): N18.9 - Chronic kidney disease, unspecified
[2025-05-16] MEDS ORDERED: DEXTROSE 50% 50 ML SYRINGE IV PRN (08:15)
[2025-05-16] MEDS ORDERED: GLUCOSE 40% GEL 15 GM TUBE PO PRN (08:15)
[2025-05-16] MEDS ORDERED: GLUCAGON FOR INJ 1 MG VIAL SQ PRN (08:15)
[2025-05-16] MEDS ORDERED: GLUCOSE 10 TAB/TUBE PO PRN (08:15)
[2025-05-16 08:32] LABS: Influenza A virus by PCR Negative (Neg); Influenza B virus by PCR Negative (Neg); SARS CoV2 RNA(COVID-19) Ceph NEGATIVE (Negative)
[2025-05-16] MEDS: ASPIRIN 81 MG ECTAB PO SCH (09:02)
[2025-05-16] MEDS: CALCITRIOL 0.25 MCG CAPSULE PO SCH (09:03)
[2025-05-16] MEDS: LANTUS PER UNIT CHARGE SQ ONE (09:06)
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
[2025-05-16] MEDS: HEPARIN SOD 5,000 UNIT/0.5 ML VIAL SQ SCH (09:07)
[2025-05-16] MEDS: FOLIC ACID 1 MG TAB PO SCH (09:07)
[2025-05-16] MEDS: CHOLECALCIFEROL 125 MCG (5,000 UNITS) TAB PO SCH (09:08)
[2025-05-16] MEDS: FAMOTIDINE 20 MG TAB PO SCH (09:14)
[2025-05-16 10:06] LABS: Appearance Urine Clear (Clear); Bacteria Urine Automated None Seen (None Seen); Epithelial Cell Urine Auto 0-2 /hpf (0-2); Glucose Urine UA 1+ (Negative); RBC Urine Automated 0-2 /hpf (0-2); WBC Urine Automated 0-5 /hpf (0-5)
[2025-05-16] MEDS ORDERED: ONDANSETRON INJ 2 MG/ML 2 ML VIAL ONE (12:17)
[2025-05-16] MEDS ORDERED: DEXAMETHASONE SOD INJ 4 MG/ML VIAL ONE (12:17)
[2025-05-16] MEDS ORDERED: PROPOFOL IV EMULSION 10 MG/ML 20 ML VIAL IV ONE (12:17)
[2025-05-16] MEDS ORDERED: LIDOCAINE 2% 2 ML VIAL/AMP(20MG/ML) INFIL ONE (12:17)
[2025-05-16] MEDS ORDERED: MIDAZOLAM HCL 1 MG/ML 2ML VIAL ONE (12:18)
[2025-05-16] MEDS ORDERED: ROCURONIUM BROMIDE 10 MG/ML 5 ML VIAL IV ONE (12:18)
--- NOTE | 2025-05-16 12:38 | History & Physical Bridge Note ---
Date of Service May 16, 2025 History & Physical Bridge Note I have examined the patient, reviewed the History & Physical and in the interval since the performance of the History & Physical I have noted the following changes of clinical significance: Alina is a 61-year-old female who is quite medically complex who presented to the to the hospital via her family for second opinion after she was recently admitted to [facility]. As detailed in the HPI, the patient sustained a fall on 05/06/2025 with noted seizure activity and because of this she was admitted to the hospital in [place]. She had a trauma workup revealing acute rib fractures and she had workup for her seizures which was unrevealing. Patient developed left arm pain about 4 to 5 days ago and the patient and her family note that this coincided with placement of an IV in her left upper extremity. That IV site became red and inflamed and the IV site was then changed, however patient and her family were upset that nothing was being done about her arm pain and as such this prompted their presentation to [facility]. On my evaluation last evening, the patient did not appear floridly ill. She did appear to be in pain with regards to her left upper extremity. Her vital signs were reassuring in that her heart rate is less than 90, respirations less than 20, and she is afebrile. Her white blood cell count is less than 12. Her ESR and CRP are elevated and although these can signify infection, this can be a confusing picture given her recent hospitalization, her kidney failure, and her history of falls. Prior to my evaluation, the patient had x-rays of her shoulder and humerus as well as a CT scan of her elbow. No acute osseous abnormalities were identified. On my evaluation, the patient seemed to be locating most of her pain in her shoulder. With isolated motion of the whole wrist and elbow, she was relatively pain-free, however with attempted motion of her shoulder, she did have significant pain. Given her elevated inflammatory markers, and without another notable source of this pain, I did recommend arthrocentesis of the left shoulder to rule out infection versus gout. Her fluid analysis returned with 75,000 white blood cells 92% of which were polymorphonuclear sites. Her Gram stain showed gram-positive cocci and many PMNs. Based on her aspiration results, I do believe this represents a septic shoulder. I do long discussion with the patient and her daughter regarding the nature of this condition. We discussed in great detail the pathoanatomy, pathophysiology, treatment options. I expressed to them that in general we attempt to get these patients to the operating room as quickly as possible for irrigation and debridement to prevent significant chondrolysis And worsening of the infection. This patient's arm pain seem to have started about 5 days ago, so I do suspect that she has already had significant chondrolysis. I expressed to the patient and her daughter that the plan would be for left shoulder irrigation and debridement with possible placement of a drain via an open or arthroscopic approach. We discussed a great detail the risks of the surgery which include but are not limited to loss of life/limb, DVT/PE, pain, infection, incomplete relief of pain, incomplete clearance of the infection, need for additional surgery, iatrogenic injury to bone/nerve/tendon/vessel. The alternative surgical management be for continued IV antibiotics or potentially serial as pirations. I believe this carries with it a higher risk of continued infection and incomplete relief of pain. After thorough discussion of the risk, benefits, alternatives to surgical management, the patient and her daughter were both interested in operative care. We will plan to take the patient to the operating room as quickly as possible once an OR is available. Surgical plan: Left shoulder open versus arthroscopic irrigation and debridement with possible drain placement.
[2025-05-16] MEDS: LACTATED RINGER'S 1,000 ML IV SCH (12:41)
[2025-05-16] MEDS ORDERED: PROMETHAZINE HCL 6.25 MG in SODIUM CHLORIDE 0.9% 50 ML IV PRN (12:53)
[2025-05-16] MEDS ORDERED: ATROPINE SULFATE 0.1 MG/ML 10ML SYR IV PRN (12:53)
[2025-05-16] MEDS ORDERED: HYDROmorphone INJ 2 MG/ML SYR/VIAL IV PRN (12:53)
--- NOTE | 2025-05-16 12:53 | Anesthesiology Consultation ---
Date of Service May 16, 2025 Assessment & Plan ASA ASA3 Proposed Anesthesia Anesthesia Type: General Risk / Benefits Reviewed With: PT / POA / Parent / Guardian, Accepts Plan and Informed Consent Obtained History Surgery Operation Date: 05/16/25 07:00 Proposed Procedures p Left Shoulder Arthroscopic Versus Open Incision and Drainage - Geovani Rubin DO Height/Weight Height: 5 ft 5 in Weight: 87.4 kg Allergies Allergy/AdvReac Type Severity Reaction Status Date / Time allopurinol Allergy Unknown Unknown Verified 05/15/25 18:32 atorvastatin Allergy Unknown Unknown Verified 05/15/25 18:32 cephalexin Allergy Unknown Unknown Verified 05/15/25 18:32 ciprofloxacin Allergy Unknown Unknown Verified 05/15/25 18:32 Penicillins Allergy Unknown Unknown Verified 05/15/25 18:32 sulfamethoxazole Allergy Unknown Unknown Verified 05/15/25 18:32 [From Sulfamethoxazole-Trimethoprim] trimethoprim Allergy Unknown Unknown Verified 05/15/25 18:32 [From Sulfamethoxazole-Trimethoprim] Medications Home Medications Medication Instructions Recorded Confirmed Last Taken acetaminophen 500 mg tablet 1,000 mg PO Q6H PRN Pain 05/15/25 05/15/25 Unknown (Tylenol Extra Strength) amlodipine 2.5 mg tablet 2.5 mg PO QAM 05/15/25 05/15/25 05/15/25 aspirin 81 mg tablet,delayed 81 mg PO DAILY 05/15/25 05/15/25 05/15/25 release biotin 10 mg tablet 10 mg PO DAILY 05/15/25 05/15/25 05/15/25 calcitriol 0.25 mcg capsule 0.25 mcg PO QAM 05/15/25 05/15/25 05/15/25 cholecalciferol (vitamin D3) 125 125 mcg PO DAILY 05/15/25 05/15/25 05/15/25 mcg (5,000 unit) tablet (Vitamin D3) ezetimibe 10 mg tablet (Zetia) 10 mg PO HS 05/15/25 05/15/25 05/14/25 famotidine 20 mg tablet (Pepcid) 20 mg PO BID 05/15/25 05/15/25 05/15/25 08:00 ferrous sulfate 325 mg (65 mg 325 mg PO DAILY 05/15/25 05/15/25 05/15/25 iron) tablet folic acid 1 mg tablet 1 mg PO DAILY 05/15/25 05/15/25 05/15/25 furosemide 20 mg tablet (Lasix) 20 mg PO DAILY 05/15/25 05/15/25 05/15/25 gabapentin 100 mg capsule 100 mg PO BID 05/15/25 05/15/25 05/15/25 08:00 insulin glargine U-300 conc 300 30 unit subcut BID 05/15/25 05/15/25 05/15/25 08:00 unit/mL (3 mL) subcutaneous pen (Toujeo Max U-300 SoloStar) insulin lispro 100 unit/mL 1 sliding scale dose subcut TIDM 05/15/25 05/15/25 05/15/25 12:00 subcutaneous solution (Humalog U-100 Insulin) latanoprost 0.005 % eye drops 1 drp OPB HS 05/15/25 05/15/25 05/14/25 levetiracetam 500 mg tablet 500 mg PO BID 05/15/25 05/15/25 05/15/25 08:00 levothyroxine 150 mcg tablet 150 mcg PO DAILYBB 05/15/25 05/15/25 05/15/25 losartan 100 mg tablet 100 mg PO DAILY 05/15/25 05/15/25 05/15/25 metoprolol tartrate 25 mg tablet 25 mg PO BID 05/15/25 05/15/25 05/15/25 08:00 omega-3 fatty acids 1,000 mg 1,000 mg PO DAILY 05/15/25 05/15/25 05/15/25 capsule pantoprazole 40 mg tablet,delayed 40 mg PO DAILY 05/15/25 05/15/25 05/15/25 release sennosides 8.6 mg-docusate sodium 2 tab-cap PO HS 05/15/25 05/15/25 05/14/25 50 mg tablet (Senna Plus) simvastatin 20 mg tablet 20 mg PO HS 05/15/25 05/15/25 05/14/25 turmeric root extract 500 mg tablet 1,000 mg PO DAILY 05/15/25 05/15/25 05/15/25 vitamin B complex 1 tab PO HS 05/15/25 05/15/25 05/14/25 Active Medications Generic Name Dose Route Start Last Admin Trade Name Freq PRN Reason Stop Dose Admin Acetaminophen 500 mg 05/15/25 22:20 05/16/25 09:02 Acetaminophen 500 Mg Tab PO 06/14/25 22:19 500 mg TID DILLON Administration Amlodipine Besylate 2.5 mg 05/16/25 09:00 05/16/25 09:02 Amlodipine Besylate 5 Mg Tab PO 06/15/25 08:59 2.5 mg QAM DILLON Administration Aspirin 81 mg 05/16/25 09:00 05/16/25 09:02 Aspirin 81 Mg Ectab PO 06/15/25 08:59 81 mg DAILY DILLON Administration Calcitriol 0.25 mcg 05/16/25 09:00 05/16/25 09:03 Calcitriol 0.25 Mcg Capsule PO 06/15/25 08:59 0.25 mcg QAM DILLON Administration Ezetimibe 10 mg 05/15/25 22:20 05/15/25 23:25 Ezetimibe 10 Mg Tab PO 06/14/25 22:19 10 mg HS DILLON Administration Famotidine 20 mg 05/16/25 09:00 05/16/25 09:14 Famotidine 20 Mg Tab PO 06/15/25 08:59 20 mg DAILY DILLON Administration Folic Acid 1 mg 05/16/25 09:00 05/16/25 09:07 Folic Acid 1 Mg Tab PO 06/15/25 08:59 1 mg DAILY DILLON Administration Gabapentin 100 mg 05/15/25 22:20 05/16/25 09:07 Gabapentin 100 Mg Cap PO 06/14/25 22:19 100 mg BID DILLON Administration Heparin Sodium (Porcine) 5,000 units 05/16/25 09:00 05/16/25 09:07 Heparin Sod 5,000 Unit/0.5 Ml Vial SQ 06/15/25 08:59 5,000 units Q12 DILLON Administration Daptomycin 500 mg/ Syringe 10 mls @ 6.25 mls/min 05/15/25 21:30 05/15/25 23:01 IV 05/17/25 21:29 6.25 mls/min Q24H DILLON Administration Protocol Lactated Ringer's 1,000 mls @ 15 mls/hr 05/16/25 12:45 05/16/25 12:41 Lr IV 05/19/25 12:44 15 mls/hr .Q24H DILLON Administration Insulin Aspart 0 units 05/15/25 22:20 05/16/25 12:04 Insulin Aspart Per Unit Charge SC 06/14/25 22:19 Not Given Q6 DILLON Insulin Glargine 20 units 05/15/25 22:20 05/15/25 23:17 Lantus Per Unit Charge SQ 06/14/25 22:19 20 units HS DILLON Administration Latanoprost 1 drops 05/15/25 22:20 05/15/25 23:21 Latanoprost 0.005% Op Soln 2.5 Ml Btl OPB 06/14/25 22:19 1 drops HS DILLON Administration Levetiracetam 500 mg 05/15/25 22:20 05/16/25 09:07 Levetiracetam 500 Mg Tab PO 06/14/25 22:19 500 mg BID DILLON Administration Levothyroxine Sodium 150 mcg 05/16/25 06:30 05/16/25 06:02 Levothyroxine Sodium 150 Mcg Tablet PO 06/15/25 06:29 150 mcg DAILYBB DILLON Administration Metoprolol Tartrate 25 mg 05/15/25 22:20 05/16/25 09:08 Metoprolol Tartrate 25 Mg Tab PO 06/14/25 22:19 25 mg BID DILLON Administration Pantoprazole Sodium 40 mg 05/16/25 09:00 05/16/25 09:08 Pantoprazole 40 Mg Tab PO 06/15/25 08:59 40 mg DAILY DILLON Administration Senna/Docusate Sodium 2 tab 05/15/25 22:20 05/15/25 23:11 Docusate Sodium/Senna 50/8.6mg Tab PO 06/14/25 22:19 2 tab HS DILLON Administration Simvastatin 20 mg 05/15/25 22:20 05/15/25 23:25 Simvastatin 20 Mg Tab PO 06/14/25 22:19 20 mg HS DILLON Administration Vitamin D 125 mcg 05/16/25 09:00 05/16/25 09:08 Cholecalciferol 125 Mcg (5,000 Units) Tab PO 06/15/25 08:59 125 mcg DAILY DILLON Administration NPO Date Last Intake of Fluids: 05/15/25 Time Last Intake of Fluids: 20:00 Date Last Intake of Solids: 05/15/25 Time Last Intake of Solids: 20:00 Past Medical History Medical History Hypothyroidism Seizure-like activity multiple events ; seizure vs syncope CAD (coronary artery disease) no h/o stents History of ITP Frequent falls LAKISHA (obstructive sleep apnea) not on CPAP/BIPAP - cannot tolerate such Progressive neurologic decline CKD (chronic kidney disease) Rib fractures 02/2025 Type 1 diabetes diagnosed age 18 Essential hypertension Splenic laceration 02/2025 Exercise / Class Metabolic Activity II 4-5 Yardwork/Stairs/Walk up hill Past Family History Family History Mother , age 77; had multiple CVAs Stroke Past Surgical History Surgical History 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 - [facility] Past Anesthesia History No Hx of Anesthesia Complications and No Family Hx of Anesthesia Complications History of PONV No Hx of PONV and No Hx of Motion Sickness Social History Smoking Status: Never smoker Do You Dip or Chew Tobacco: No Smoking End Date: pt smoked when in high school Hx Alcohol Use: Yes alcohol intake frequency: holidays/special occasions only Hx Substance Use: No substance use type: does not use Physical Exam Vital Signs Last Vital Signs Temp 37.6 C H 05/16/25 12:29 Pulse 64 05/16/25 12:29 Resp 16 05/16/25 12:29 BP 159/63 H 05/16/25 12:29 Pulse Ox 94 05/16/25 12:29 O2 Del Method Room Air 05/16/25 12:29 Constitutional + obese; no acute distress ENMT Mouth: no dentition abnormality Thyromental Distance: > or= 3.5 Finger Breadths Mallampati Class: III Neck normal visual inspection Respiratory normal respiratory effort; no respiratory distress Auscultation: lungs clear to auscultation bilaterally Cardiovascular Rate/Rhythm: regular rate and regular rhythm Heart Sounds: no murmur Musculoskeletal Spine: normal cervical ROM Psychiatric Orientation: alert and oriented x 3 Testing Laboratory Results 05/16/25 05:41 05/16/25 05:41 Urine Color Yellow 05/16/25 09:20 Urine Appearance Clear (Clear) 05/16/25 09:20 Urine pH 5.5 (4.5-7.5) 05/16/25 09:20 Ur Specific Spencer 1.015 (1.000-1.030) 05/16/25 09:20 Urine Protein 3+ (Negative) H 05/16/25 09:20 Urine Glucose (UA) 1+ (Negative) H 05/16/25 09:20 Urine Ketones Negative (Negative) 05/16/25 09:20 Urine Nitrite Negative (Negative) 05/16/25 09:20 Ur Leukocyte Esterase Negative (Negative) 05/16/25 09:20 Urine WBC (Auto) 0-5 /hpf (0-5) 05/16/25 09:20 Urine RBC (Auto) 0-2 /hpf (0-2) 05/16/25 09:20 U Hyaline Cast (Auto) 3-5 /lpf (0-2) H 05/16/25 09:20 U Epithel Cells (Auto) 0-2 /hpf (0-2) 05/16/25 09:20 Urine Bacteria (Auto) None Seen (None Seen) 05/16/25 09:20 05/15/25 Unknown Gram Stain - Final Shoulder,Left Aerobic and Anaerobic Culture - Preliminary No growth to date. 05/16/25 05/16/25 05/16/25 11:52 07:18 05:58 POC Glucose 117 H 227 H 271 H Day of Procedure Evaluation. Date of Surgery May 16, 2025 Height/Weight Height: 5 ft 5 in Weight: 87.4 kg Vital Signs Last Vital Signs Temp 37.6 C H 05/16/25 12:29 Pulse 64 05/16/25 12:29 Resp 16 05/16/25 12:29 BP 159/63 H 05/16/25 12:29 Pulse Ox 94 05/16/25 12:29 O2 Del Method Room Air 05/16/25 12:29 Allergies Allergy/AdvReac Type Severity Reaction Status Date / Time allopurinol Allergy Unknown Unknown Verified 05/15/25 18:32 atorvastatin Allergy Unknown Unknown Verified 05/15/25 18:32 cephalexin Allergy Unknown Unknown Verified 05/15/25 18:32 ciprofloxacin Allergy Unknown Unknown Verified 05/15/25 18:32 Penicillins Allergy Unknown Unknown Verified 05/15/25 18:32 sulfamethoxazole Allergy Unknown Unknown Verified 05/15/25 18:32 [From Sulfamethoxazole-Trimethoprim] trimethoprim Allergy Unknown Unknown Verified 05/15/25 18:32 [From Sulfamethoxazole-Trimethoprim] Medications Home Medications Medication Instructions Recorded Confirmed Last Taken acetaminophen 500 mg tablet 1,000 mg PO Q6H PRN Pain 05/15/25 05/15/25 Unknown (Tylenol Extra Strength) amlodipine 2.5 mg tablet 2.5 mg PO QAM 05/15/25 05/15/25 05/15/25 aspirin 81 mg tablet,delayed 81 mg PO DAILY 05/15/25 05/15/25 05/15/25 release biotin 10 mg tablet 10 mg PO DAILY 05/15/25 05/15/25 05/15/25 calcitriol 0.25 mcg capsule 0.25 mcg PO QAM 05/15/25 05/15/25 05/15/25 cholecalciferol (vitamin D3) 125 125 mcg PO DAILY 05/15/25 05/15/25 05/15/25 mcg (5,000 unit) tablet (Vitamin D3) ezetimibe 10 mg tablet (Zetia) 10 mg PO HS 05/15/25 05/15/25 05/14/25 famotidine 20 mg tablet (Pepcid) 20 mg PO BID 05/15/25 05/15/25 05/15/25 08:00 ferrous sulfate 325 mg (65 mg 325 mg PO DAILY 05/15/25 05/15/25 05/15/25 iron) tablet folic acid 1 mg tablet 1 mg PO DAILY 05/15/25 05/15/25 05/15/25 furosemide 20 mg tablet (Lasix) 20 mg PO DAILY 05/15/25 05/15/25 05/15/25 gabapentin 100 mg capsule 100 mg PO BID 05/15/25 05/15/25 05/15/25 08:00 insulin glargine U-300 conc 300 30 unit subcut BID 05/15/25 05/15/25 05/15/25 08:00 unit/mL (3 mL) subcutaneous pen (Toujeo Max U-300 SoloStar) insulin lispro 100 unit/mL 1 sliding scale dose subcut TIDM 05/15/25 05/15/25 05/15/25 12:00 subcutaneous solution (Humalog U-100 Insulin) latanoprost 0.005 % eye drops 1 drp OPB HS 05/15/25 05/15/25 05/14/25 levetiracetam 500 mg tablet 500 mg PO BID 05/15/25 05/15/25 05/15/25 08:00 levothyroxine 150 mcg tablet 150 mcg PO DAILYBB 05/15/25 05/15/25 05/15/25 losartan 100 mg tablet 100 mg PO DAILY 05/15/25 05/15/25 05/15/25 metoprolol tartrate 25 mg tablet 25 mg PO BID 05/15/25 05/15/25 05/15/25 08:00 omega-3 fatty acids 1,000 mg 1,000 mg PO DAILY 05/15/25 05/15/25 05/15/25 capsule pantoprazole 40 mg tablet,delayed 40 mg PO DAILY 05/15/25 05/15/25 05/15/25 release sennosides 8.6 mg-docusate sodium 2 tab-cap PO HS 05/15/25 05/15/25 05/14/25 50 mg tablet (Senna Plus) simvastatin 20 mg tablet 20 mg PO HS 05/15/25 05/15/25 05/14/25 turmeric root extract 500 mg tablet 1,000 mg PO DAILY 05/15/25 05/15/25 05/15/25 vitamin B complex 1 tab PO HS 05/15/25 05/15/25 05/14/25 Active Medications Generic Name Dose Route Start Last Admin Trade Name Alberto PRN Reason Stop Dose Admin Acetaminophen 500 mg 05/15/25 22:20 05/16/25 09:02 Acetaminophen 500 Mg Tab PO 06/14/25 22:19 500 mg TID DILLON Administration Amlodipine Besylate 2.5 mg 05/16/25 09:00 05/16/25 09:02 Amlodipine Besylate 5 Mg Tab PO 06/15/25 08:59 2.5 mg QAM DILLON Administration Aspirin 81 mg 05/16/25 09:00 05/16/25 09:02 Aspirin 81 Mg Ectab PO 06/15/25 08:59 81 mg DAILY DILLON Administration Calcitriol 0.25 mcg 05/16/25 09:00 05/16/25 09:03 Calcitriol 0.25 Mcg Capsule PO 06/15/25 08:59 0.25 mcg QAM DILLON Administration Ezetimibe 10 mg 05/15/25 22:20 05/15/25 23:25 Ezetimibe 10 Mg Tab PO 06/14/25 22:19 10 mg HS DILLON Administration Famotidine 20 mg 05/16/25 09:00 05/16/25 09:14 Famotidine 20 Mg Tab PO 06/15/25 08:59 20 mg DAILY DILLON Administration Folic Acid 1 mg 05/16/25 09:00 05/16/25 09:07 Folic Acid 1 Mg Tab PO 06/15/25 08:59 1 mg DAILY DILLON Administration Gabapentin 100 mg 05/15/25 22:20 05/16/25 09:07 Gabapentin 100 Mg Cap PO 06/14/25 22:19 100 mg BID DILLON Administration Heparin Sodium (Porcine) 5,000 units 05/16/25 09:00 05/16/25 09:07 Heparin Sod 5,000 Unit/0.5 Ml Vial SQ 06/15/25 08:59 5,000 units Q12 DILLON Administration Daptomycin 500 mg/ Syringe 10 mls @ 6.25 mls/min 05/15/25 21:30 05/15/25 23:01 IV 05/17/25 21:29 6.25 mls/min Q24H DILLON Administration Protocol Lactated Ringer's 1,000 mls @ 15 mls/hr 05/16/25 12:45 05/16/25 12:41 Lr IV 05/19/25 12:44 15 mls/hr .Q24H DILLON Administration Insulin Aspart 0 units 05/15/25 22:20 05/16/25 12:04 Insulin Aspart Per Unit Charge SC 06/14/25 22:19 Not Given Q6 DILLON Insulin Glargine 20 units 05/15/25 22:20 05/15/25 23:17 Lantus Per Unit Charge SQ 06/14/25 22:19 20 units HS DILLON Administration Latanoprost 1 drops 05/15/25 22:20 05/15/25 23:21 Latanoprost 0.005% Op Soln 2.5 Ml Btl OPB 06/14/25 22:19 1 drops HS DILLON Administration Levetiracetam 500 mg 05/15/25 22:20 05/16/25 09:07 Levetiracetam 500 Mg Tab PO 06/14/25 22:19 500 mg BID DILLON Administration Levothyroxine Sodium 150 mcg 05/16/25 06:30 05/16/25 06:02 Levothyroxine Sodium 150 Mcg Tablet PO 06/15/25 06:29 150 mcg DAILYBB DILLON Administration Metoprolol Tartrate 25 mg 05/15/25 22:20 05/16/25 09:08 Metoprolol Tartrate 25 Mg Tab PO 06/14/25 22:19 25 mg BID DILLON Administration Pantoprazole Sodium 40 mg 05/16/25 09:00 05/16/25 09:08 Pantoprazole 40 Mg Tab PO 06/15/25 08:59 40 mg DAILY DILLON Administration Senna/Docusate Sodium 2 tab 05/15/25 22:20 05/15/25 23:11 Docusate Sodium/Senna 50/8.6mg Tab PO 06/14/25 22:19 2 tab HS DILLON Administration Simvastatin 20 mg 05/15/25 22:20 05/15/25 23:25 Simvastatin 20 Mg Tab PO 06/14/25 22:19 20 mg HS DILLON Administration Vitamin D 125 mcg 05/16/25 09:00 05/16/25 09:08 Cholecalciferol 125 Mcg (5,000 Units) Tab PO 06/15/25 08:59 125 mcg DAILY DILLON Administration Past Anesthesia History No Hx of Anesthesia Complications and No Family Hx of Anesthesia Complications History of PONV No Hx of PONV and No Hx of Motion Sickness NPO Date Last Intake of Fluids: 05/15/25 Time Last Intake of Fluids: 20:00 Date Last Intake of Solids: 05/15/25 Time Last Intake of Solids: 20:00 HCG & FBG Results 05/16/25 05/16/25 05/16/25 11:52 07:18 05:58 POC Glucose 117 H 227 H 271 H Home Medications Home Medications Medication Instructions Recorded Confirmed Last Taken acetaminophen 500 mg tablet 1,000 mg PO Q6H PRN Pain 05/15/25 05/15/25 Unknown (Tylenol Extra Strength) amlodipine 2.5 mg tablet 2.5 mg PO QAM 05/15/25 05/15/25 05/15/25 aspirin 81 mg tablet,delayed 81 mg PO DAILY 05/15/25 05/15/25 05/15/25 release biotin 10 mg tablet 10 mg PO DAILY 05/15/25 05/15/25 05/15/25 calcitriol 0.25 mcg capsule 0.25 mcg PO QAM 05/15/25 05/15/25 05/15/25 cholecalciferol (vitamin D3) 125 125 mcg PO DAILY 05/15/25 05/15/25 05/15/25 mcg (5,000 unit) tablet (Vitamin D3) ezetimibe 10 mg tablet (Zetia) 10 mg PO HS 05/15/25 05/15/25 05/14/25 famotidine 20 mg tablet (Pepcid) 20 mg PO BID 05/15/25 05/15/25 05/15/25 08:00 ferrous sulfate 325 mg (65 mg 325 mg PO DAILY 05/15/25 05/15/25 05/15/25 iron) tablet folic acid 1 mg tablet 1 mg PO DAILY 05/15/25 05/15/25 05/15/25 furosemide 20 mg tablet (Lasix) 20 mg PO DAILY 05/15/25 05/15/25 05/15/25 gabapentin 100 mg capsule 100 mg PO BID 05/15/25 05/15/25 05/15/25 08:00 insulin glargine U-300 conc 300 30 unit subcut BID 05/15/25 05/15/25 05/15/25 08:00 unit/mL (3 mL) subcutaneous pen (Toujeo Max U-300 SoloStar) insulin lispro 100 unit/mL 1 sliding scale dose subcut TIDM 05/15/25 05/15/25 05/15/25 12:00 subcutaneous solution (Humalog U-100 Insulin) latanoprost 0.005 % eye drops 1 drp OPB HS 05/15/25 05/15/25 05/14/25 levetiracetam 500 mg tablet 500 mg PO BID 05/15/25 05/15/25 05/15/25 08:00 levothyroxine 150 mcg tablet 150 mcg PO DAILYBB 05/15/25 05/15/25 05/15/25 losartan 100 mg tablet 100 mg PO DAILY 05/15/25 05/15/25 05/15/25 metoprolol tartrate 25 mg tablet 25 mg PO BID 05/15/25 05/15/25 05/15/25 08:00 omega-3 fatty acids 1,000 mg 1,000 mg PO DAILY 05/15/25 05/15/25 05/15/25 capsule pantoprazole 40 mg tablet,delayed 40 mg PO DAILY 05/15/25 05/15/2525 release sennosides 8.6 mg-docusate sodium 2 tab-cap PO HS 05/15/25 05/15/25 05/14/25 50 mg tablet (Senna Plus) simvastatin 20 mg tablet 20 mg PO HS 05/15/25 05/15/25 05/14/25 turmeric root extract 500 mg tablet 1,000 mg PO DAILY 05/15/25 05/15/25 05/15/25 vitamin B complex 1 tab PO HS 05/15/25 05/15/25 05/14/25 Active Medications Generic Name Dose Route Start Last Admin Trade Name Akinq PRN Reason Stop Dose Admin Acetaminophen 500 mg 05/15/25 22:20 05/16/25 09:02 Acetaminophen 500 Mg Tab PO 06/14/25 22:19 500 mg TID DILLON Administration Amlodipine Besylate 2.5 mg 05/16/25 09:00 05/16/25 09:02 Amlodipine Besylate 5 Mg Tab PO 06/15/25 08:59 2.5 mg QAM DILLON Administration Aspirin 81 mg 05/16/25 09:00 05/16/25 09:02 Aspirin 81 Mg Ectab PO 06/15/25 08:59 81 mg DAILY DILLON Administration Calcitriol 0.25 mcg 05/16/25 09:00 05/16/25 09:03 Calcitriol 0.25 Mcg Capsule PO 06/15/25 08:59 0.25 mcg QAM DILLON Administration Ezetimibe 10 mg 05/15/25 22:20 05/15/25 23:25 Ezetimibe 10 Mg Tab PO 06/14/25 22:19 10 mg HS DILLON Administration Famotidine 20 mg 05/16/25 09:00 05/16/25 09:14 Famotidine 20 Mg Tab PO 06/15/25 08:59 20 mg DAILY DILLON Administration Folic Acid 1 mg 05/16/25 09:00 05/16/25 09:07 Folic Acid 1 Mg Tab PO 06/15/25 08:59 1 mg DAILY DILLON Administration Gabapentin 100 mg 05/15/25 22:20 05/16/25 09:07 Gabapentin 100 Mg Cap PO 06/14/25 22:19 100 mg BID DILLON Administration Heparin Sodium (Porcine) 5,000 units 05/16/25 09:00 05/16/25 09:07 Heparin Sod 5,000 Unit/0.5 Ml Vial SQ 06/15/25 08:59 5,000 units Q12 DILLON Administration Daptomycin 500 mg/ Syringe 10 mls @ 6.25 mls/min 05/15/25 21:30 05/15/25 23:01 IV 05/17/25 21:29 6.25 mls/min Q24H DILLON Administration Protocol Lactated Ringer's 1,000 mls @ 15 mls/hr 05/16/25 12:45 05/16/25 12:41 Lr IV 05/19/25 12:44 15 mls/hr .Q24H DILLON Administration Insulin Aspart 0 units 05/15/25 22:20 05/16/25 12:04 Insulin Aspart Per Unit Charge SC 06/14/25 22:19 Not Given Q6 DILLON Insulin Glargine 20 units 05/15/25 22:20 05/15/25 23:17 Lantus Per Unit Charge SQ 06/14/25 22:19 20 units HS DILLON Administration Latanoprost 1 drops 05/15/25 22:20 05/15/25 23:21 Latanoprost 0.005% Op Soln 2.5 Ml Btl OPB 06/14/25 22:19 1 drops HS DILLON Administration Levetiracetam 500 mg 05/15/25 22:20 05/16/25 09:07 Levetiracetam 500 Mg Tab PO 06/14/25 22:19 500 mg BID DILLON Administration Levothyroxine Sodium 150 mcg 05/16/25 06:30 05/16/25 06:02 Levothyroxine Sodium 150 Mcg Tablet PO 06/15/25 06:29 150 mcg DAILYBB DILLON Administration Metoprolol Tartrate 25 mg 05/15/25 22:20 05/16/25 09:08 Metoprolol Tartrate 25 Mg Tab PO 06/14/25 22:19 25 mg BID DILLON Administration Pantoprazole Sodium 40 mg 05/16/25 09:00 05/16/25 09:08 Pantoprazole 40 Mg Tab PO 06/15/25 08:59 40 mg DAILY DILLON Administration Senna/Docusate Sodium 2 tab 05/15/25 22:20 05/15/25 23:11 Docusate Sodium/Senna 50/8.6mg Tab PO 06/14/25 22:19 2 tab HS DILLON Administration Simvastatin 20 mg 05/15/25 22:20 05/15/25 23:25 Simvastatin 20 Mg Tab PO 06/14/25 22:19 20 mg HS DILLON Administration Vitamin D 125 mcg 05/16/25 09:00 05/16/25 09:08 Cholecalciferol 125 Mcg (5,000 Units) Tab PO 06/15/25 08:59 125 mcg DAILY DILLON Administration Exercise / Class Metabolic Activity Metabolic Activity: II 4-5 Yardwork/Stairs/Walk up hill Physical Exam Constitutional: + obese; no acute distress Mouth: no dentition abnormality Thyromental Distance: > or= 3.5 Finger Breadths Mallampati Class: III Neck: + visual inspection normal Respiratory: + respiratory effort normal and + clear to auscultation bilaterally; no respiratory distress Cardiovascular: + regular rate and + regular rhythm; no murmur Musculoskeletal: no limited cervical ROM Psychiatric: + alert and + oriented x 3 ASA ASA3 Proposed Anesthesia Proposed Anesthesia: General Risk / Benefits Reviewed With: PT / POA / Parent / Guardian, Accepts Plan and Informed Consent Obtained
[2025-05-16] MEDS ORDERED: SUGAMMADEX SODIUM 200 MG/2 ML VIAL IV ONE (13:42)
[2025-05-16] MEDS: VANCOMYCIN HCL 1000MG/20ML VIAL ONE (14:21)
--- NOTE | 2025-05-16 15:04 | Operative Report ---
Post Operative Report Pre & Post Diagnosis Operation Date: 05/16/25 07:00 Pre-Op Diagnosis: Septic arthritis of shoulder, left Post-Op Diagnosis: Septic arthritis of shoulder, left I identified the patient and participated in the time-out.: Yes Procedure Operation Date: 05/16/25 07:00 Actual Procedures p Left Shoulder Open Irrigation and Debridement, Application of Negative Pressure Wound Therapy(Left) - Geovani Rubin DO Surgeon Geovani Rubin DO [employer] Estate [employer] none Estimated Blood Loss 30 Findings Consistent with Post-Op Diagnosis Specimens 2x specimen: (both sent for culture) 1. tissue from subdeltoid space 2. swab for intraarticular joint space Anesthesia Type General Regional Complications none immediately apparent Disposition Disposition: Recovery Room Indications Alina is a 69-year-old female who is quite medically complex who presented to the to the hospital via her family for second opinion after she was recently admitted to [facility]. As detailed in the HPI, the patient sustained a fall on 05/06/2025 with noted seizure activity and because of this she was admitted to the hospital in [place]. She had a trauma workup revealing acute rib fractures and she had workup for her seizures which was unrevealing. Patient developed left arm pain about 4 to 5 days ago and the patient and her family note that this coincided with placement of an IV in her left upper extremity. That IV site became red and inflamed and the IV site was then changed, however patient and her family were upset that nothing was being done about her arm pain and as such this prompted their presentation to [facility]. On my evaluation last evening, the patient did not appear floridly ill. She did appear to be in pain with regards to her left upper extremity. Her vital signs were reassuring in that her heart rate is less than 90, respirations less than 20, and she is afebrile. Her white blood cell count is less than 12. Her ESR and CRP are elevated and although these can signify infection, this can be a confusing picture given her recent hospitalization, her kidney failure, and her history of falls. Prior to my evaluation, the patient had x-rays of her shoulder and humerus as well as a CT scan of her elbow. No acute osseous abnormalities were identified. On my evaluation, the patient seemed to be locating most of her pain in her shoulder. With isolated motion of the whole wrist and elbow, she was relatively pain-free, however with attempted motion of her shoulder, she did have significant pain. Given her elevated inflammatory markers, and without another notable source of this pain, I did recommend arthrocentesis of the left shoulder to rule out infection versus gout. Her fluid analysis returned with 75,000 white blood cells 92% of which were polymorphonuclear sites. Her Gram stain showed gram-positive cocci and many PMNs. Based on her aspiration results, I do believe this represents a septic shoulder. I do long discussion with the patient and her daughter regarding the nature of this condition. We discussed in great detail the pathoanatomy, pathophysiology, treatment options. I expressed to them that in general we attempt to get these patients to the operating room as quickly as possible for irrigation and debridement to prevent significant chondrolysis And worsening of the infection. This patient's arm pain seem to have started about 5 days ago, so I do suspect that she has already had significant chondrolysis. I expressed to the patient and her daughter that the plan would be for left shoulder irrigation and debridement with possible placement of a drain via an open or arthroscopic approach. We discussed a great detail the risks of the surgery which include but are not limited to loss of life/limb, DVT/PE, pain, infection, incomplete relief of pain, incomplete clearance of the infection, need for additional surgery, iatrogenic injury to bone/nerve/tendon/vessel. The alternative surgical management be for continued IV antibiotics or potentially serial aspirations. I believe this carries with it a higher risk of continued infection and incomplete relief of pain. After thorough discussion of the risk, benefits, alternatives to surgical management, the patient and her daughter were both interested in operative care. We will plan to take the patient to the operating room as quickly as possible once an OR is available. Surgical plan: Left shoulder open versus arthroscopic irrigation and debridement with possible drain placement. Description of Procedure After informed consent was obtained, the patient was correctly identified in the preoperative holding suite, the operative site was marked with the surgeon's initials, the date of surgery, and the word yes. The patient was then taken to the operative suite. The department of anesthesia administered general anesthesia. The patient was transferred from the [facility] to the operative table. All bony prominences were well-padded. Briefing and timeout was performed. All implants were available and sterile at the time. BRIEFING AND DEBRIEFING: Pre and post operative briefing and debriefing was performed. Introductions were made, goals of the procedure were discussed, questions and concerns were addressed. The operative site markings were identified and appropriate. A time [id number] was p erformed, the patient's correct identity was confirmed and the correct operative sites were identified. The patients pre-operative antibiotic dosing and administration was confirmed along with other SCIP measures. The team was polled at the completion of the surgery and all team members were in agreement that the procedure was without complication, the counts are correct, the wound class was identified and suggestions for improvement were shared. Patient was administered general anesthesia and she was then transferred from the hospital bed to the operative table with the beachchair positioner in place. All bony promises well-padded. We elevated the head of the patient's bed to put her in the beachchair position and ensured that all bony prominences well- padded and her legs were resting comfortably. SCDs were placed on bilateral lower extremities and turned on. Her left upper extremity was cleansed with a chlorhexidine scrub brush and then prepped and draped in standard sterile fashion using ChloraPrep. We placed the operative extremity onto the drape to [facility] extremity positioner. We began by marking out the anatomy of the proximal shoulder girdle including the distal clavicle, AC joint, coracoid process. We planned for standard deltopectoral approach extending from the coracoid process distally along the edge of the deltoid muscle. We would make a 10 cm incision along the deltopectoral interval sharply using a knife and then we continued our dissection deep in this layer with use of electrocautery to ensure adequate hemostasis. Once we reached the interval of the deltoid and the pectoral muscle, the fat in between them was then carefully dissected to identify and protect the cephalic vein. This was then retracted laterally. We entered the subdeltoid space and placed a subdeltoid Murphy retractor in place. Medial to this, we identified the clavipectoral fascia just on the lateral border of the conjoined tendon, and we incised this along its course. The conjoined tendon was then retracted gently medially. At this point, we identified the long head of the biceps tendon as well as the subscapularis. We would then rotate the shoulder in multiple planes, no rents in the rotator cuff were easily identified, so we opted to enter the intra-articular joint space through the rotator interval. This was done bluntly with use of hemostats. Purulent material was quickly expressed and this was then swabbed and sent for culture. Devitalized tissue within the subdeltoid space was also sharply obtained with use of a rongeur and sent for culture. At this point, we proceeded to thoroughly irrigate the joint space and the subdeltoid area using a total of 9 L of sterile saline each 3 L bag mixed with 1 g of vancomycin powder. Once were satisfied with our irrigation, we sharply debrided all devitalized tissue with the use of a rongeur down to the level of bone. We then ensured appropriate hemostasis with use of electrocautery. We then began our layered closure. The rotator interval was reapproximated with a single 0 PDS suture and regupa-ly-sfykw fashion. The deep fat was then reapproximated with use of 2-0 PDS suture and the subcutaneous tissue at the skin was closed with 3-0 Monocryl in an inverted fashion and then the skin was reapproximated with 3-0 nylon in a vertical mattress fashion. Quarter inch brown Steri-Strips were placed between each suture, the tails were pulled through we then covered the wound with a negative pressure mellissa wound therapy device. The patient tolerated this procedure well and was transferred to the PACU in stable condition. Prior to transportation to PACU, all counts were correct and a briefing was performed at the end of the case. I was present for the entire procedure. Plan: Weight bearing status: As tolerated left upper extremity Wound care: Keep mellissa dressing in place for 7 days once battery pack runs out, remove battery pack but keep dressing in place Range of motion: Pendulums and Codman's with PT VTE Prophylaxis: Okay for DVT prophylaxis from orthopedic standpoint Antibiotics: IV daptomycin Pain Control: Multimodal Discharge Plan: Pending clinical course Follow Up: with myself in 2 weeks Consults: Infectious disease consultation, likely to require PICC line Labs: Trend CRP daily I attest to the content of the Intraoperative Record and any orders documented therein. Any exceptions are noted below.
--- NOTE | 2025-05-16 15:31 | XCELERA ---
[id number]
--- NOTE | 2025-05-16 16:37 | Anesthesiology Progress Note ---
Date of Service May 16, 2025 Anesthesia Post Procedure Vital Signs Vital Signs: Temp Pulse Pulse Pulse Resp BP BP 05/16/25 16:30 71 16 165/80 H 05/16/25 16:15 68 16 158/68 H 05/16/25 15:45 67 13 165/71 H 05/16/25 15:35 36.5 C 66 14 166/70 H 05/16/25 15:25 68 13 151/65 H 05/16/25 15:15 65 14 152/65 H 05/16/25 15:05 36 C L 61 10 L 138/59 L 05/16/25 12:29 37.6 C H 64 16 159/63 H 05/16/25 11:07 37.1 C 61 13 144/65 H 05/16/25 08:00 05/16/25 07:21 37.4 C 66 12 147/61 H 05/16/25 02:40 37.1 C 68 18 148/71 H 05/15/25 22:59 37.3 C 73 20 158/65 H 05/15/25 22:20 05/15/25 21:37 77 05/15/25 21:30 05/15/25 21:30 37.3 C 70 14 162/67 H 05/15/25 20:00 65 18 159/72 H 05/15/25 19:57 67 05/15/25 19:00 67 13 167/72 H 05/15/25 18:30 71 14 172/75 H 05/15/25 16:58 61 12 137/66 Pulse Ox Pulse Ox O2 Del Method O2 Del Method O2 Flow Rate 05/16/25 16:30 98 Room Air 05/16/25 16:15 99 Nasal Cannula 2 05/16/25 15:45 100 Nasal Cannula 3 05/16/25 15:35 100 Nasal Cannula 3 05/16/25 15:25 89 L Room Air 05/16/25 15:15 100 Room Air 05/16/25 15:05 99 Oxymask 6 05/16/25 12:29 94 Room Air 05/16/25 11:07 90 Room Air 05/16/25 08:00 Room Air 05/16/25 07:21 94 Room Air 05/16/25 02:40 95 Room Air 05/15/25 22:59 94 Room Air 05/15/25 22:20 94 Room Air 05/15/25 21:37 05/15/25 21:30 Room Air 05/15/25 21:30 94 Room Air 05/15/25 20:00 97 Room Air 05/15/25 19:57 05/15/25 19:00 98 05/15/25 18:30 98 05/15/25 16:58 97 Transfer of Care Handoff Completed per policy Notes Mental Status: alert / awake / arousable and participated in evaluation Patient Amnestic to Procedure: Yes Nausea / Vomiting: adequately controlled Pain: adequately controlled Airway Patency, RR, SpO2: stable & adequate BP & HR: stable & adequate Hydration State: stable & adequate Anesthetic Complications: no major complications apparent and Pt Satisfied with anesthetic care
[2025-05-16] MEDS: HYDROCODONE/ACETAMINOPHEN 7.5/325MG TAB PO PRN (17:39)
--- NOTE | 2025-05-16 18:55 | Hospitalist Progress Note ---
Date of Service May 16, 2025 Assessment & Plan (1) Septic arthritis of shoulder, left: (2) Cephalic vein thrombosis, left: (3) Acute metabolic encephalopathy: (4) ROXANA (acute kidney injury): (5) Seizure-like activity: (6) Elevated troponin: (7) Hypothyroidism: (8) Essential hypertension: (9) Type 1 diabetes: (10) CKD (chronic kidney disease): (11) Progressive neurologic decline: (12) LAKISHA (obstructive sleep apnea): (13) Frequent falls: (14) CAD (coronary artery disease): (15) Status post splenectomy: Plan Very complicated 69yo female with long-standing T1DM diagnosed in late teenage years, LAKISHA not on CPAP, HTN, remote h/o ITP, ?babesiosis, chronic ambulatory d ysfunction/balance difficulties, hypothyroidism, history of splenic laceration & rib fractures s/p trauma 02/2025 with resulting splenectomy & trauma ICU stay at [facility], history of seizure vs syncope on several occasions in the last year, question of underlying cognitive impairment, CKD unknown stage, hyperlipidemia, and ?CAD (not treated with stents) who presents after having been discharged from [facility] earlier today. Ms Ibarra was admitted to [facility] on 05/06/25 after having an unwitnessed fall followed by an episode of seizure vs syncope. The latter was witnessed by her (see details below). After her admission to [facility] on 05/06 she underwent MRI brain which by report was negative for acute stroke or other acute process, EEG (also negative for seizure by report), and was treated for ROXANA which by the family's report may have been due to IV CT contrast. By report her creatinine was as high as 6. During her stay at [facility] she developed significant mental status changes and was lethargic. On 05/09/25, her family recalls that they presumptively treated her for possible seizure and Keppra 500mg BID was started about that time. She subsequently developed severe left arm pain around 05/11/25, and the left arm pain progressed this week to the point of any movement of the left arm/shoulder caused exquisite pain. #septic arthritis of Left Shoulder - present on admission - -appreciate Dr Rubin's consultation from ortho -STAT MRI L shoulder yesterday evening with shoulder effusion as well as ?bone marrow edema with cystic changes and erosion in superior facet of greater tuberosity -Dr Rubin subsequently performed arthrocentesis of the L shoulder yielding 10ml of fluid -gram stain from the fluid +GPC -crystal analysis negative -cell counts - WBCs 75,000 -with leukocytosis, elevated ESR/CRP, and the joint fluid findings along with clinical picture this was all concerning for L shoulder septic arthritis -daptomycin IV started 05/15 which will cover staph/strep species -s/p I & D of the L shoulder today by Dr Rubin -follow all cultures from the L shoulder -follow blood cx's -pain control -- norco prn, tylenol 500 TID scheduled; add IV pain meds, if needed -cause of septic shoulder.....did she seed the joint from septic left arm phlebitis? other cause? -the asplenic state and her T1DM are two set-ups for increased risk of any infectious process #acute left cephalic vein phlebitis/thrombosis - -2nd to prior IV in that arm at outside hospital -unfortunately cannot use NSAIDs due to ROXANA -warm compresses prn -cont her baby aspirin that is chronic for her -did the phlebitis become "septic" leading to her septic arthritis of the left shoulder? #acute metabolic encephalopathy - -likely multifactorial - ROXANA, septic L shoulder, head injury/concussion, post- seizure (?) -toxic effects from oxycodone as well as Keppra also possible -plan - -stopped oxycodone; use norco in eleazar - latter tends to cause less confusion -cont supportive care for ROXANA -checked ammonia - wnl -checked VBG - no hypercapnia -cont IV daptomycin for septic L shoulder -consider repeat MRI brain when able did have MRI brain at 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 seen only #seizure-like activity vs syncope - recurrent episodes over last 1-2 years - -appreciate consultation by Dr Dela Cruz from [facility] -will continue keppra 500mg BID for now to cover for possible seizures -checked echo - nothing on such that would have led to syncope -telemetry thus far negative -check orthostatic BPs when able -high fall risk - suspect she likely has diabetic neuropathy at baseline but interestingly denies paresthesias -checked B12 level - wnl -B1 level pending -Dr Dela Cruz advising Lyme screen -- will check such -Dr Dela Cruz advising repeat MRI brain when able (with contrast if renal function allows) #ambulatory dysfunction/gait disturbance/frequent falls - -see above -will need PT/OT #long-standing T1DM - -has been alternating recently between Toujeo and Lantus at home -was taking both BID recently -I am uncertain what her regimen was while at [facility] -will be conservative and use lantus 20 units BID and novolog - CF 35, carb ratio 1:12 -check a1c while here #CKD, uncertain stage - -would need to get records to check baseline levels -apparently had Cr of nearly 6 recently at [place] -clearly her Cr is improving - Cr now 2.5 today -BMP am #ROXANA - present on admission - improving - -had CT a/p at [place] during recent stay; I reviewed this CT with our radiologist today -- NO obstruction seen on CT; kidneys anatomically wnl -BMP in am #HTN - -cont home meds but hold any CARLOS ALBERTO or ARB #hypothyroidism - -TSH minimally elevated -consider adjusting her synthroid dose -repeat TSH 6 weeks as outpatient #h/o head injury - multiple occurrences - -suspect a concussion from her recent head injury -also had head injury 02/2025 and probably on prior falls as well #hyperlipidemia - -hold statin while on daptomycin #LAKISHA - untreated - -consider overnight oxymetry study to see if she qualifies for night-time O2 -cannot tolerate NIPPV unfortunately #??recent dx of babesiosis?? - -uncertain details on this -smear is negative; sent DNA test -no clinical evidence of this tick-borne illness based on history or labs #h/o CAD - -no ischemic sx's at this time -mild troponin elevation likely myocardial demand ischemia in setting of ROXANA, other acute medical issues #post-splenectomy state - -will need to check with family to see if she got encapsulated pathogen vaccines - pneumococcal, HIB, etc. #DVT prophylaxis - -heparin 5000 BID appreciate ortho assistance will update pt's daughter Juliann Mejia via [place] correspondence Admission and Anticipated Discharge Date Admission Date: May 15, 2025 Subjective tele overnight wnl briefly saw patient before going to surgery - was more awake/alert today saw patient after her surgery - again awake/alert she is a little fuzzy on the events of the last 1-2 days; she did not remember me from the ER last pm - she thought I was her surgeon c/o L shoulder pain otherwise, no chest pain or dyspnea Review of Systems Review of Systems: gen - no fevers cv - no chest pain pulm - no dyspnea GI - c/o constipation; but no nausea/emesis Physical Exam Physical Exam: gen - resting in bed; more awake/alert today than yesterday; seems more oriented HENT - MMM neck - no JVD heart - RRR, s1 s2, no murmur; port R upper chest clean lungs - CTA b/l (anterior chest) abd - soft NT ND BS+; no HSM ext - no edema of legs, pulses 2+ b/l feet musculo - left shoulder/arm in sling; dressing intact L shoulder psych - more awake/more alert today Results & Data Results & Data Vital Signs (Past 12 Hours) Vital Signs Temp Pulse Pulse Resp BP Pulse Ox O2 Del Method 05/16/25 18:00 77 17 101/81 99 Room Air 05/16/25 17:30 75 17 154/90 H 98 Room Air 05/16/25 17:15 74 12 112/70 98 Room Air 05/16/25 17:00 73 18 133/69 100 Room Air 05/16/25 16:45 70 14 122/100 100 Room Air 05/16/25 16:30 71 16 165/80 H 98 Room Air 05/16/25 16:15 68 16 158/68 H 99 Nasal Cannula 05/16/25 15:45 67 13 165/71 H 100 Nasal Cannula 05/16/25 15:35 36.5 C 66 14 166/70 H 100 Nasal Cannula 05/16/25 15:25 68 13 151/65 H 89 L Room Air 05/16/25 15:15 65 14 152/65 H 100 Room Air 05/16/25 15:05 36 C L 61 10 L 138/59 L 99 Oxymask 05/16/25 12:29 37.6 C H 64 16 159/63 H 94 Room Air 05/16/25 11:07 37.1 C 61 13 144/65 H 90 Room Air 05/16/25 08:00 Room Air 05/16/25 07:21 37.4 C 66 12 147/61 H 94 Room Air O2 Flow Rate 05/16/25 18:00 05/16/25 17:30 05/16/25 17:15 05/16/25 17:00 05/16/25 16:45 05/16/25 16:30 05/16/25 16:15 2 05/16/25 15:45 3 05/16/25 15:35 3 05/16/25 15:25 05/16/25 15:15 05/16/25 15:05 6 05/16/25 12:29 05/16/25 11:07 05/16/25 08:00 05/16/25 07:21 Laboratory Results Laboratory Results - last 24 hr 05/15/25 05/15/25 05/15/25 15:40 19:41 19:56 WBC RBC Hgb Hct MCV MCH MCHC RDW Std Deviation RDW Coeff of Shruthi Plt Count MPV ESR 86 H Sodium Potassium Chloride Carbon Dioxide Anion Gap BUN Creatinine Est Cr Clr Drug Dosing eGFR BUN/Creatinine Ratio Glucose POC Glucose 155 H Uric Acid 5.1 Calcium Ammonia 18.0 C-Reactive Protein 10.30 H Whole Bld Vitamin B1 Vitamin B12 Urine Color Urine Appearance Urine pH Ur Specific [place] Urine Protein Urine Glucose (UA) Urine Ketones Urine Blood Urine Nitrite Urine Bilirubin Urine Urobilinogen Ur Leukocyte Esterase Urine WBC (Auto) Urine RBC (Auto) U Hyaline Cast (Auto) U Epithel Cells (Auto) Urine Bacteria (Auto) Urine Comment Fluid Comment Synovial Source Synovial Color Synovial Appearance Synovial WBC (Auto) Synovial RBC (Auto) Synovial Polynuclear % Synovial Mononuclear % Synovial Crystals Anaplasma Smear Babesia Smear Babesia microti DNA PCR SARS-CoV-2 (PCR) Influenza Type A (PCR) Influenza Type B (PCR) RSV (RT-PCR) 05/15/25 05/15/25 05/16/25 23:09 Unknown 05:41 WBC 11.89 H RBC 3.38 L Hgb 10.5 L Hct 32.0 L MCV 94.7 MCH 31.1 MCHC 32.8 RDW Std Deviation 48.0 H RDW Coeff of Shruthi 14.2 Plt Count 442 H MPV 11.1 ESR Sodium 136 Potassium 4.9 Chloride 102 Carbon Dioxide 26 Anion Gap 8 BUN 37 H Creatinine 2.58 H D Est Cr Clr Drug Dosing 22.8 eGFR 19.68 BUN/Creatinine Ratio 14.3 Glucose 252 H POC Glucose 207 H Uric Acid Calcium 8.9 Ammonia C-Reactive Protein Whole Bld Vitamin B1 Pending Vitamin B12 651 Urine Color Urine Appearance Urine pH Ur Specific [place] Urine Protein Urine Glucose (UA) Urine Ketones Urine Blood Urine Nitrite Urine Bilirubin Urine Urobilinogen Ur Leukocyte Esterase Urine WBC (Auto) Urine RBC (Auto) U Hyaline Cast (Auto) U Epithel Cells (Auto) Urine Bacteria (Auto) Urine Comment Fluid Comment Synovial Source Shoulder Synovial Color WHI Synovial Appearance Cloudy Synovial WBC (Auto) 90435 H Synovial RBC (Auto) 86591 Synovial Polynuclear % 92.4 Synovial Mononuclear % 7.6 Synovial Crystals Anaplasma Smear See Comment Babesia Smear See Comment Babesia microti DNA PCR Pending SARS-CoV-2 (PCR) Influenza Type A (PCR) Influenza Type B (PCR) RSV (RT-PCR) 05/16/25 05/16/25 05/16/25 05:58 07:18 07:25 WBC RBC Hgb Hct MCV MCH MCHC RDW Std Deviation RDW Coeff of Shruthi Plt Count MPV ESR Sodium Potassium Chloride Carbon Dioxide Anion Gap BUN Creatinine Est Cr Clr Drug Dosing eGFR BUN/Creatinine Ratio Glucose POC Glucose 271 H 227 H Uric Acid Calcium Ammonia C-Reactive Protein Whole Bld Vitamin B1 Vitamin B12 Urine Color Urine Appearance Urine pH Ur Specific [place] Urine Protein Urine Glucose (UA) Urine Ketones Urine Blood Urine Nitrite Urine Bilirubin Urine Urobilinogen Ur Leukocyte Esterase Urine WBC (Auto) Urine RBC (Auto) U Hyaline Cast (Auto) U Epithel Cells (Auto) Urine Bacteria (Auto) Urine Comment Fluid Comment Synovial Source Synovial Color Synovial Appearance Synovial WBC (Auto) Synovial RBC (Auto) Synovial Polynuclear % Synovial Mononuclear % Synovial Crystals Anaplasma Smear Babesia Smear Babesia microti DNA PCR SARS-CoV-2 (PCR) NEGATIVE Influenza Type A (PCR) Negative Influenza Type B (PCR) Negative RSV (RT-PCR) Negative 05/16/25 05/16/25 05/16/25 09:20 11:52 15:12 WBC RBC Hgb Hct MCV MCH MCHC RDW Std Deviation RDW Coeff of Shruthi Plt Count MPV ESR Sodium Potassium Chloride Carbon Dioxide Anion Gap BUN Creatinine Est Cr Clr Drug Dosing eGFR BUN/Creatinine Ratio Glucose POC Glucose 117 H 125 H Uric Acid Calcium Ammonia C-Reactive Protein Whole Bld Vitamin B1 Vitamin B12 Urine Color Yellow Urine Appearance Clear Urine pH 5.5 Ur Specific [place] 1.015 Urine Protein 3+ H Urine Glucose (UA) 1+ H Urine Ketones Negative Urine Blood Trace H Urine Nitrite Negative Urine Bilirubin Negative Urine Urobilinogen Negative Ur Leukocyte Esterase Negative Urine WBC (Auto) 0-5 Urine RBC (Auto) 0-2 U Hyaline Cast (Auto) 3-5 H U Epithel Cells (Auto) 0-2 Urine Bacteria (Auto) None Seen Urine Comment Fluid Comment Synovial Source Synovial Color Synovial Appearance Synovial WBC (Auto) Synovial RBC (Auto) Synovial Polynuclear % Synovial Mononuclear % Synovial Crystals Anaplasma Smear Babesia Smear Babesia microti DNA PCR SARS-CoV-2 (PCR) Influenza Type A (PCR) Influenza Type B (PCR) RSV (RT-PCR) 05/16/25 17:30 WBC RBC Hgb Hct MCV MCH MCHC RDW Std Deviation RDW Coeff of Shruthi Plt Count MPV ESR Sodium Potassium Chloride Carbon Dioxide Anion Gap BUN Creatinine Est Cr Clr Drug Dosing eGFR BUN/Creatinine Ratio Glucose POC Glucose 120 H Uric Acid Calcium Ammonia C-Reactive Protein Whole Bld Vitamin B1 Vitamin B12 Urine Color Urine Appearance Urine pH Ur Specific [place] Urine Protein Urine Glucose (UA) Urine Ketones Urine Blood Urine Nitrite Urine Bilirubin Urine Urobilinogen Ur Leukocyte Esterase Urine WBC (Auto) Urine RBC (Auto) U Hyaline Cast (Auto) U Epithel Cells (Auto) Urine Bacteria (Auto) Urine Comment Fluid Comment Synovial Source Synovial Color Synovial Appearance Synovial WBC (Auto) Synovial RBC (Auto) Synovial Polynuclear % Synovial Mononuclear % Synovial Crystals Anaplasma Smear Babesia Smear Babesia microti DNA PCR SARS-CoV-2 (PCR) Influenza Type A (PCR) Influenza Type B (PCR) RSV (RT-PCR) Diagnostic Findings Chest X-Ray 05/15/25 16:11 Clinical History: Chest pain Technique: A frontal view of the chest was obtained Findings: There is a small left pleural effusion. There is left lower lobe opacity that could be due to either atelectasis or pneumonia. The heart is mildly enlarged. No definite pneumothorax is seen. There is no definite pulmonary nodule. There is an apparent all fracture of the left seventh rib. There is a right chest port port with its tip in the SVC Impression: 1. Small left pleural effusion 2. Left lower lobe opacity that could be due to either atelectasis or pneumonia 3. Mild cardiomegaly ACT 112: Positive. There are findings on this exam that require communication between the performing entity and the patient following Patient Test Result Information Act ([place] ACT 112) guidelines. Electronically signed by Giovanni Hicks 05-15-2025 6:43 PM Extremity Venous Study 05/15/25 16:14 Technique: Doppler sonography was performed of the left arm veins Findings: There is apparent occlusive thrombus in the left cephalic vein, extending approximately 5 cm in length The left jugular, subclavian, axillary, brachial, basilic, radial, and ulnar veins all appear patent with normal anechoic lumens and full compressibility. Expected Doppler waveforms were noted. No definite soft tissue mass or fluid collection is seen. Impression: 1. SVT involving the left cephalic vein 2. No evidence of left arm DVT ACT 112: Positive. There are findings on this exam that require communication between the performing entity and the patient following Patient Test Result Information Act ([place] ACT 112) guidelines. Electronically signed by Giovanni Hicks 05-15-2025 6:11 PM Humerus X-Ray 05/15/25 18:21 INDICATION: Trauma TECHNIQUE: 2 views of the left humerus were obtained. COMPARISON: None FINDINGS: No displaced acute osseous process is identified. IMPRESSION: No displaced acute osseous process is identified. Limited evaluation of the left elbow. Please refer to separately performed elbow CT for further details. Electronically signed by Robert Everett 05-15-2025 8:40 PM Shoulder X-Ray 05/15/25 18:21 INDICATION: Trauma TECHNIQUE: 3 views of the left shoulder were obtained. COMPARISON: None FINDINGS: No displaced acute osseous process is identified in the left shoulder. Age-indeterminate and possibly acute traumatic fractures of the left seventh through the ninth ribs. IMPRESSION: No displaced acute osseous process is identified in the left shoulder. Age-indeterminate and possibly acute traumatic fractures of the left seventh through the ninth ribs. Electronically signed by Robert Everett 05-15-2025 8:[address] 05/15/25 19:33 Exam(s): CT LEFT ELBOW Without Contrast EXAM: CT Left Upper Extremity Without Intravenous Contrast, Elbow CLINICAL HISTORY: Reason for exam: severe elbow pain, swelling; effusion? Fracture?. TECHNIQUE: Axial computed tomography images of the left elbow without intravenous contrast. CTDI is 26.22 mGy and DLP is 665.73 mGy-cm. Automated exposure control was utilized for the study. A dose lowering technique was utilized adhering to the principles of ALARA. COMPARISON: X-rays dated 05/15/2025. FINDINGS: Artifact degrades image quality limiting the exam. Bones/joints: No acute fracture. No dislocation. There is an olecranon spur. Soft tissues: There is soft tissue swelling and edema. There are soft tissue calcifications noted. The visualized musculature is grossly unremarkable.. IMPRESSION: Limited exam. Soft tissue edema and swelling. Olecranon spur. There is soft tissue calcifications which may represent calcification of the triceps tendon. If further evaluation is clinically necessary, consider correlation with MRI Electronically signed by: Mainor Cannon MD 05/16/25 00:44 AM Shoulder MRI 05/16/25 23:44 EXAM: MR shoulder LT wo con CLINICAL HISTORY: shoulder pain, likely septic arthritis TECHNIQUE: Multisequential and multiplanar images of the left shoulder were submitted for review without contrast. COMPARISON: None. FINDINGS: Subscapularis tendon shows increased T2 signal with mild thickening, consistent with tendinopathy. Near-complete tear of supraspinatus tendon is seen over a length of approximately 2 cm with an AP diameter of 2.3 cm. Ill-defined bone marrow edema is seen within the superior facet of greater tuberosity of humerus at the articular attachment of supraspinatus tendon, with associated cystic changes and cortical erosion. Moderate glenohumeral joint effusion is present. Subacromial/subdeltoid bursa shows hyperintense fluid on T2-weighted and PDFS sequences, consistent with bursitis. Subcoracoid bursa demonstrates hyperintense fluid on T2-weighted and PDFS sequences, consistent with bursitis. Osteoarthritic changes seen in acromioclavicular joint in form of reduced joint space, periarticular osteophytes and minimal joint effusion. There is a Type II acromion present. Few axillary lymph nodes seen, measuring 15 x 11 mm is noted. The coracohumeral distance and acromiohumeral space is normal. The infraspinatus, teres minor and biceps tendon appear normal. No evidence of tendinosis, tenosynovitis or tear is seen. Labrum appears normal. No evidence of tear or paralabral cyst is seen. The articular cartilage overlying the glenoid fossa is normal. No loose body or debris present within the glenohumeral joint. IMPRESSION: ? Moderate glenohumeral joint effusion. ? Subacromial/subdeltoid and subcoracoid bursitis. ? Subscapularis tendinopathy. ? Near-complete tear of supraspinatus tendon. ? Bone marrow edema with cystic changes and erosion in superior facet of greater tuberosity. ? Early osteoarthritic changes in acromioclavicular joint. ? Few axillary lymph nodes. Electronically signed by Veto Aponte 05-16-2025 03:31 AM PG Care Time/CCT Total # of Minutes Spent Total Time Spent with Patient: Total time spent is greater than 50% in coordination of care (as documented) at patient's floor/unit and/or counseling patient: Coding Level of Care Code 22866 SUB INP/OBS CARE 3/50MIN Diagnoses Septic arthritis of shoulder, left M00.9 Cephalic vein thrombosis, left I82.612 Acute metabolic encephalopathy G93.41 ROXANA (acute kidney injury) N17.9 Seizure-like activity R29.818 Elevated troponin R79.89 Hypothyroidism E03.9 Essential hypertension I10 Type 1 diabetes E10.9 CKD (chronic kidney disease) N18.9 Chronic kidney disease stage: unspecified stage Progressive neurologic decline R29.818 LAKISHA (obstructive sleep apnea) G47.33 Frequent falls R29.6 CAD (coronary artery disease) I25.10 Status post splenectomy Z90.81 (10) CKD (chronic kidney disease) Chronic kidney disease stage: unspecified stage Qualified Code(s): N18.9 - Chronic kidney disease, unspecified
--- NOTE | 2025-05-16 19:31 | Electrocardiogram Report ---
Test Reason : Blood Pressure : */* mmHG Vent. Rate : 64 BPM Atrial Rate : 64 BPM P-R Int : 146 ms QRS Dur : 82 ms QT Int : 410 ms P-R-T Axes : 22 27 40 degrees QTcB Int : 422 ms Normal sinus rhythm Normal ECG No previous ECGs available Confirmed by Raza Villafuerte ([id number]) on 05/16/2025 7:31:30 PM Referred By: Confirmed By: Raza Villafuerte
[2025-05-17 08:08] LABS: Anion Gap 6.0 (3-11); Blood Urea Nitrogen 29.0 mg/dl (6-23); Calcium 8.6 mg/dl (8.6-10.3); Carbon Dioxide 28.0 mmol/L (21-32); Chloride 102.0 mmol/L (98-107); Creatinine Clr Calc Pharmacy 26.9 ml/min; Glucose 165.0 mg/dl (70-99(Fasting)); Potassium 4.6 mmol/L (3.5-5.1); Sodium 136.0 mmol/L (136-145)
[2025-05-17] MEDS: INSULIN ASPART PER UNIT CHARGE SC SCH (08:27)
--- NOTE | 2025-05-17 08:30 | Orthopedic Progress Note ---
<Statement entered by Geovani Rubin, DO - 05/18/25 10:12> Attending addendum: Patient seen and examined postoperative day #1. CRP is increased, will continue to trend. Patient's pain is improved. Consider alternative sources of infection if CRP remains elevated. Okay for range of motion pendulum/Codman's of the left upper extremity continue IV antibiotics. Infectious disease consult pending. Date of Service May 17, 2025 Assessment & Plan (1) Septic arthritis of shoulder, left: Plan: -POD #1 left shoulder I&D and application of wound vac with Dr. Rubin on 05/16/25 -CRP did increase from 10.3 to 13.87 this morning, likely consistent with post- operative state. Will continue to trend to ensure that this starts to come down -Intra-operative cultures are pending. Continue IV abx per primary -Keep dressing and wound vac in place -May remove slings to do gentle ROM and pendulums as tolerated -Pain control as written -DVT prophylaxis heparin TID Admission and Anticipated Discharge Date Admission Date: May 15, 2025 Subjective Ms. Ibarra did well overnight. A little sore this morning but states pain has otherwise been controlled on current regimen. She was able to eat breakfast, denies nausea or vomiting. Daughter is at bedside as well. No acute complaints or concerns at this time. Physical Exam Physical Exam: Resting in bed, no acute distress Musculoskeletal: LUE: Sling in place, removed. Dressing over shoulder is clean, dry and intact. Wound VAC in place and functional. Shoulder is mildly edematous but compartments are soft and compressible, notes generalized tenderness to palpation. There is an erythematous area over the dorsal forearm, does not extend past the drawn boarders. Mild edema about the forearm into the hand and digits. Elbow does not appear edematous but notes pain with attempts of active and passive flexion/extension. Active digital and wrist ROM intact without pain. Sensation and radial pulse intact Neurologic: Interacting and answering questions appropriately Results & Data Vital Signs (Past 12 Hours) Vital Signs Temp Pulse Resp BP BP Pulse Ox O2 Del Method 05/17/25 07:12 37.5 C 75 18 150/59 H 97 Room Air 05/17/25 02:40 37.3 C 74 18 149/76 H 98 Nasal Cannula 05/16/25 23:13 Nasal Cannula 05/16/25 23:00 37.0 C 76 18 155/68 H 99 Nasal Cannula 05/16/25 22:20 O2 Del Method O2 Flow Rate O2 Flow Rate 05/17/25 07:12 05/17/25 02:40 05/16/25 23:13 1 05/16/25 23:00 3.0 05/16/25 22:20 Nasal Cannula 1 Laboratory Results Laboratory Tests 05/17/25 05:32 C-Reactive Protein 13.87 H
[2025-05-17] MEDS: POLYETHYLENE (MIRALAX) 17 GM PACK PO SCH (09:27)
[2025-05-17] MEDS: LANTUS PER UNIT CHARGE SQ SCH (09:27)
[2025-05-17 09:55] LABS: Hematocrit (blood only) 28.9 % (37.0-47.0); Hemoglobin 8.9 g/dL (12.0-16.0); Immature Granulocytes # (auto) 0.04 K/uL (0.01-0.20); Immature Granulocytes % (auto) 0.4 %; Mean Corpuscular Hemoglobin 30.3 pg (25.0-34.0); Mean Corpuscular Volume 98.3 fL (80.0-100.0); Platelet Count 474 K/uL (130-400); RDW Standard Deviation 50.6 fL (36.4-46.3); Red Blood Count 2.94 M/uL (4.20-5.40); White Blood Count 10.85 K/ul (4.8-10.8)
[2025-05-17 10:39] LABS: Hemoglobin A1C 7.4 % (4.5-5.6)
--- NOTE | 2025-05-17 13:00 | Hospitalist Progress Note ---
Date of Service May 17, 2025 Assessment & Plan (1) Septic arthritis of shoulder, left: (2) Cephalic vein thrombosis, left: (3) Acute metabolic encephalopathy: (4) ROXANA (acute kidney injury): (5) Seizure-like activity: (6) Elevated troponin: (7) Hypothyroidism: (8) Essential hypertension: (9) Type 1 diabetes: (10) CKD (chronic kidney disease): (11) Progressive neurologic decline: (12) LAKISHA (obstructive sleep apnea): (13) Frequent falls: (14) CAD (coronary artery disease): (15) Status post splenectomy: Plan Very complicated 69yo female with long-standing T1DM diagnosed in late teenage years, LAKISHA not on CPAP, HTN, remote h/o ITP, ?babesiosis, chronic ambulatory d ysfunction/balance difficulties, hypothyroidism, history of splenic laceration & rib fractures s/p trauma 02/2025 with resulting splenectomy & trauma ICU stay at [facility], history of seizure vs syncope on several occasions in the last year, question of underlying cognitive impairment, CKD unknown stage, hyperlipidemia, and ?CAD (not treated with stents) who presents after having been discharged from [facility] earlier today. Ms Ibarra was admitted to [facility] on 05/06/25 after having an unwitnessed fall followed by an episode of seizure vs syncope. The latter was witnessed by her (see details below). After her admission to [facility] on 05/06 she underwent MRI brain which by report was negative for acute stroke or other acute process, EEG (also negative for seizure by report), and was treated for ROXANA which by the family's report may have been due to IV CT contrast. By report her creatinine was as high as 6. During her stay at [facility] she developed significant mental status changes and was lethargic. On 05/09/25, her family recalls that they presumptively treated her for possible seizure and Keppra 500mg BID was started about that time. She subsequently developed severe left arm pain around 05/11/25, and the left arm pain progressed over a 3-4 day period to the point of any movement of the left arm/shoulder caused exquisite pain. #septic arthritis of Left Shoulder - present on admission - -appreciate Dr Rubin's assistance from orthopedics -STAT MRI L shoulder on hospital day #1 showed glenohumeral joint effusion as well as ?bone marrow edema with cystic changes and erosion in superior facet of greater tuberosity -Dr Rubin subsequently performed arthrocentesis of the L shoulder yielding 10ml of fluid and gram stain +GPC -crystal analysis negative -cell counts - WBCs 75,000 -with leukocytosis, elevated ESR/CRP, and the joint fluid findings along with clinical picture this was all concerning for L shoulder septic arthritis -POD #1 - -s/p I & D of the L shoulder by Dr Rubin -daptomycin IV started 05/15 which will cover staph aureus that is growing in her cultures -blood cx's remain negative to date -pain control -- norco prn, tylenol 500 TID scheduled; add IV pain meds, if needed -cause of septic shoulder.....did she seed the joint from septic left arm phlebitis? other cause? -the asplenic state and her T1DM are two set-ups for increased risk of any infectious process -patient will likely need 6-week course of IV antibiotic treatment -fortunately she has a central port in place -will obtain ID consult on Monday, 05/19 #acute left cephalic vein phlebitis/thrombosis - -2nd to prior IV in that arm at outside hospital -unfortunately cannot use NSAIDs due to ROXANA -warm compresses prn -cont her baby aspirin that is chronic for her -did the phlebitis become "septic" leading to her septic arthritis of the left shoulder? 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 -will continue keppra 500mg BID for now to cover for possible seizures -checked echo - nothing on such that would have led to syncope -telemetry thus far negative for a.fib/flutter -check orthostatic BPs when able -high fall risk - suspect she likely has diabetic neuropathy at baseline but interestingly denies paresthesias -checked B12 level - wnl -B1 level pending -Lyme screen negative -Dr Dela Cruz advised a repeat MRI brain when able (with contrast if renal function allows) #ambulatory dysfunction/gait disturbance/frequent falls - -see above -needs PT/OT #long-standing T1DM - -has been alternating recently between twcie daily Toujeo and Lantus at home -control thus far adequate with - lantus 20 units HS, 15 units qam, and novolog - CF 35, carb ratio 1:12 -Hba1c 7.4% #CKD, uncertain stage - -would need to get records to check baseline levels -apparently had Cr of nearly 6 recently at [place] -Cr is improving - Cr now 2.18 today -BMP am #ROXANA - present on admission - improving - -had CT a/p at [place] during recent stay; I reviewed this CT with our radiologist -- NO obstruction seen on CT; kidneys anatomically wnl -BMP in am #HTN - -cont home meds but hold losartan #hypothyroidism - -TSH minimally elevated -in light of illness would leave synthroid as is and repeat TSH in 4 weeks as outpatient #h/o head injury - multiple occurrences - -suspect a concussion from her recent head injury on 05/06/25 -also had head injury 02/2025 and probably on prior falls as well #hyperlipidemia - -hold statin while on daptomycin #LAKISHA - untreated - -consider overnight oxymetry study to see if she qualifies for night-time O2 -cannot tolerate NIPPV unfortunately #??recent dx of babesiosis?? - -uncertain details on this -smear is negative; sent DNA test -no clinical evidence of this tick-borne illness based on history or labs #h/o CAD - -no ischemic sx's at this time -mild troponin elevation likely myocardial demand ischemia in setting of ROXANA, other acute medical issues #post-splenectomy state - -will need to check with family to see if she got encapsulated pathogen vaccines - pneumococcal, HIB, etc. #DVT prophylaxis - -heparin 5000 BID; increase the dose if there is further renal recovery appreciate ortho assistance updated pt's daughter Juliann Mejia by phone this evening, 05/17 PT/OT ordered Admission and Anticipated Discharge Date Admission Date: May 15, 2025 Subjective patient resting in bed main complaint is L shoulder pain - no worse than prior eating fair denies dyspnea, but staff report that if O2 is removed she does desaturate denies cough she is very awake today & alert knew it was April, and that we were in [facility] in [place] staff report, however, that she continues to have episodes of confusion and saying odd things at times denies abd pain has had stool in the last 24 hours per staff tele - wnl Review of Systems Review of Systems: gen - no fever; weak/fatigued cv - no chest pain pulm - no dyspnea at rest GI - no abd pain or nausea/emesis Physical Exam Physical Exam: gen - resting in bed; awake/alert and quite oriented today; NAD HENT - MMM, no thrush neck - no JVD heart - RRR, s1 s2, no murmur; port R upper chest clean lungs - mild dry rales bases, otherwise CTA b/l with no wheeze or increased work of breathing abd - soft NT ND BS+; no HSM ext - no edema of legs, pulses 2+ b/l feet musculo - left shoulder/arm in sling; dressing intact L shoulder psych - a/o x 3 skin - left forearm - area of phlebitis with surrounding erythema - improving; erythema is receding from previously placed demarkation lines drawn by outside hospital Results & Data Results & Data Vital Signs (Past 12 Hours) Vital Signs Temp Pulse Resp BP BP Pulse Ox O2 Del Method 05/17/25 10:58 37.4 C 76 18 164/78 H 96 Nasal Cannula 05/17/25 07:12 37.5 C 75 18 150/59 H 97 Room Air 05/17/25 02:40 37.3 C 74 18 149/76 H 98 Nasal Cannula O2 Flow Rate 05/17/25 10:58 3 05/17/25 07:12 05/17/25 02:40 Laboratory Results Laboratory Results - last 48 hr 05/15/25 05/16/25 05/16/25 Unknown 05:41 07:18 WBC RBC Hgb Hct MCV MCH MCHC RDW Std Deviation RDW Coeff of Shruthi Plt Count MPV Immature Gran % (Auto) Neut % (Auto) Lymph % (Auto) [place] % (Auto) Eos % (Auto) Baso % (Auto) Neut # (Auto) Lymph # (Auto) [place] # (Auto) Eos # (Auto) Baso # (Auto) Immature Gran # (Auto) Sodium Potassium Chloride Carbon Dioxide Anion Gap BUN Creatinine Est Cr Clr Drug Dosing eGFR BUN/Creatinine Ratio Glucose POC Glucose 227 H Estimat Average Glucose Hemoglobin A1c Calcium C-Reactive Protein Vitamin B12 651 Urine Color Urine Appearance Urine pH Ur Specific [place] Urine Protein Urine Glucose (UA) Urine Ketones Urine Blood Urine Nitrite Urine Bilirubin Urine Urobilinogen Ur Leukocyte Esterase Urine WBC (Auto) Urine RBC (Auto) U Hyaline Cast (Auto) U Epithel Cells (Auto) Urine Bacteria (Auto) Urine Comment Synovial Crystals Anaplasma Smear See Comment Babesia Smear See Comment Lyme Disease Screen SARS-CoV-2 (PCR) Influenza Type A (PCR) Influenza Type B (PCR) RSV (RT-PCR) 05/16/25 05/16/25 05/16/25 07:25 09:20 11:52 WBC RBC Hgb Hct MCV MCH MCHC RDW Std Deviation RDW Coeff of Shruthi Plt Count MPV Immature Gran % (Auto) Neut % (Auto) Lymph % (Auto) [place] % (Auto) Eos % (Auto) Baso % (Auto) Neut # (Auto) Lymph # (Auto) [place] # (Auto) Eos # (Auto) Baso # (Auto) Immature Gran # (Auto) Sodium Potassium Chloride Carbon Dioxide Anion Gap BUN Creatinine Est Cr Clr Drug Dosing eGFR BUN/Creatinine Ratio Glucose POC Glucose 117 H Estimat Average Glucose Hemoglobin A1c Calcium C-Reactive Protein Vitamin B12 Urine Color Yellow Urine Appearance Clear Urine pH 5.5 Ur Specific [place] 1.015 Urine Protein 3+ H Urine Glucose (UA) 1+ H Urine Ketones Negative Urine Blood Trace H Urine Nitrite Negative Urine Bilirubin Negative Urine Urobilinogen Negative Ur Leukocyte Esterase Negative Urine WBC (Auto) 0-5 Urine RBC (Auto) 0-2 U Hyaline Cast (Auto) 3-5 H U Epithel Cells (Auto) 0-2 Urine Bacteria (Auto) None Seen Urine Comment Synovial Crystals Anaplasma Smear Babesia Smear Lyme Disease Screen SARS-CoV-2 (PCR) NEGATIVE Influenza Type A (PCR) Negative Influenza Type B (PCR) Negative RSV (RT-PCR) Negative 05/16/25 05/16/25 05/16/25 15:12 17:30 21:33 WBC RBC Hgb Hct MCV MCH MCHC RDW Std Deviation RDW Coeff of Shruthi Plt Count MPV Immature Gran % (Auto) Neut % (Auto) Lymph % (Auto) [place] % (Auto) Eos % (Auto) Baso % (Auto) Neut # (Auto) Lymph # (Auto) [place] # (Auto) Eos # (Auto) Baso # (Auto) Immature Gran # (Auto) Sodium Potassium Chloride Carbon Dioxide Anion Gap BUN Creatinine Est Cr Clr Drug Dosing eGFR BUN/Creatinine Ratio Glucose POC Glucose 125 H 120 H 246 H Estimat Average Glucose Hemoglobin A1c Calcium C-Reactive Protein Vitamin B12 Urine Color Urine Appearance Urine pH Ur Specific [place] Urine Protein Urine Glucose (UA) Urine Ketones Urine Blood Urine Nitrite Urine Bilirubin Urine Urobilinogen Ur Leukocyte Esterase Urine WBC (Auto) Urine RBC (Auto) U Hyaline Cast (Auto) U Epithel Cells (Auto) Urine Bacteria (Auto) Urine Comment Synovial Crystals Anaplasma Smear Babesia Smear Lyme Disease Screen SARS-CoV-2 (PCR) Influenza Type A (PCR) Influenza Type B (PCR) RSV (RT-PCR) 05/17/25 05/17/25 05/17/25 05:32 05:38 07:11 WBC 10.85 H RBC 2.94 L Hgb 8.9 L Hct 28.9 L MCV 98.3 MCH 30.3 MCHC 30.8 L RDW Std Deviation 50.6 H RDW Coeff of Shruthi 14.4 Plt Count 474 H MPV 12.9 H Immature Gran % (Auto) 0.4 Neut % (Auto) 77.1 Lymph % (Auto) 6.7 [place] % (Auto) 12.9 Eos % (Auto) 1.9 Baso % (Auto) 1.0 Neut # (Auto) 8.36 H Lymph # (Auto) 0.73 L [place] # (Auto) 1.40 H Eos # (Auto) 0.21 Baso # (Auto) 0.11 Immature Gran # (Auto) 0.04 Sodium 136 Potassium 4.6 Chloride 102 Carbon Dioxide 28 Anion Gap 6 BUN 29 H Creatinine 2.18 H D Est Cr Clr Drug Dosing 26.9 eGFR 24.09 BUN/Creatinine Ratio 13.3 Glucose 165 H POC Glucose 166 H Estimat Average Glucose 166 Hemoglobin A1c 7.4 H Calcium 8.6 C-Reactive Protein 13.87 H Vitamin B12 Urine Color Urine Appearance Urine pH Ur Specific [place] Urine Protein Urine Glucose (UA) Urine Ketones Urine Blood Urine Nitrite Urine Bilirubin Urine Urobilinogen Ur Leukocyte Esterase Urine WBC (Auto) Urine RBC (Auto) U Hyaline Cast (Auto) U Epithel Cells (Auto) Urine Bacteria (Auto) Urine Comment Synovial Crystals Anaplasma Smear Babesia Smear Lyme Disease Screen Negative SARS-CoV-2 (PCR) Influenza Type A (PCR) Influenza Type B (PCR) RSV (RT-PCR) 05/17/25 05/17/25 05/17/25 11:00 14:40 16:07 WBC RBC Hgb Hct MCV MCH MCHC RDW Std Deviation RDW Coeff of Shruthi Plt Count MPV Immature Gran % (Auto) Neut % (Auto) Lymph % (Auto) [place] % (Auto) Eos % (Auto) Baso % (Auto) Neut # (Auto) Lymph # (Auto) [place] # (Auto) Eos # (Auto) Baso # (Auto) Immature Gran # (Auto) Sodium Potassium Chloride Carbon Dioxide Anion Gap BUN Creatinine Est Cr Clr Drug Dosing eGFR BUN/Creatinine Ratio Glucose POC Glucose 158 H 100 H 70 Estimat Average Glucose Hemoglobin A1c Calcium C-Reactive Protein Vitamin B12 Urine Color Urine Appearance Urine pH Ur Specific [place] Urine Protein Urine Glucose (UA) Urine Ketones Urine Blood Urine Nitrite Urine Bilirubin Urine Urobilinogen Ur Leukocyte Esterase Urine WBC (Auto) Urine RBC (Auto) U Hyaline Cast (Auto) U Epithel Cells (Auto) Urine Bacteria (Auto) Urine Comment Synovial Crystals Anaplasma Smear Babesia Smear Lyme Disease Screen SARS-CoV-2 (PCR) Influenza Type A (PCR) Influenza Type B (PCR) RSV (RT-PCR) Diagnostic Findings Microbiology 05/15/25 19:41 Blood Aerobic Blood Culture - Preliminary No growth in Aerobic bottle after 48 hours. 05/15/25 19:41 Blood Anaerobic Blood Culture - Preliminary No growth in Anaerobic bottle after 48 hours. 05/15/25 19:48 Blood Aerobic Blood Culture - Preliminary No growth in Aerobic bottle after 48 hours. 05/15/25 19:48 Blood Anaerobic Blood Culture - Preliminary No growth in Anaerobic bottle after 48 hours. 05/15/25 Unknown Shoulder,Left Gram Stain - Final 05/15/25 Unknown Shoulder,Left Aerobic and Anaerobic Culture - Preliminary Staphylococcus aureus 05/16/25 14:02 Shoulder,Left Gram Stain - Final 05/16/25 14:02 Shoulder,Left Aerobic and Anaerobic Culture - Preliminary Staphylococcus aureus 05/16/25 14:02 Shoulder,Left Gram Stain - Final 05/16/25 14:02 Shoulder,Left Aerobic and Anaerobic Culture - Preliminary No growth to date. PG Care Time/CCT Total # of Minutes Spent Total Time Spent with Patient: Total time spent is greater than 50% in coordination of care (as documented) at patient's floor/unit and/or counseling patient: Coding Level of Care Code 92429 SUB INP/OBS CARE 3/50MIN Diagnoses Septic arthritis of shoulder, left M00.9 Cephalic vein thrombosis, left I82.612 Acute metabolic encephalopathy G93.41 ROXANA (acute kidney injury) N17.9 Seizure-like activity R29.818 Elevated troponin R79.89 Hypothyroidism E03.9 Essential hypertension I10 Type 1 diabetes E10.9 CKD (chronic kidney disease) N18.9 Chronic kidney disease stage: unspecified stage Progressive neurologic decline R29.818 LAKISHA (obstructive sleep apnea) G47.33 Frequent falls R29.6 CAD (coronary artery disease) I25.10 Status post splenectomy Z90.81 (10) CKD (chronic kidney disease) Chronic kidney disease stage: unspecified stage Qualified Code(s): N18.9 - Chronic kidney disease, unspecified
[2025-05-18 06:34] LABS: Hematocrit (blood only) 30.8 % (37.0-47.0); Hemoglobin 9.4 g/dL (12.0-16.0); Mean Corpuscular Hemoglobin 29.9 pg (25.0-34.0); Mean Corpuscular Volume 98.1 fL (80.0-100.0); Platelet Count 432 K/uL (130-400); RDW Standard Deviation 48.6 fL (36.4-46.3); Red Blood Count 3.14 M/uL (4.20-5.40); White Blood Count 9.84 K/ul (4.8-10.8)
[2025-05-18 06:54] LABS: Anion Gap 6.0 (3-11); Blood Urea Nitrogen 30.0 mg/dl (6-23); Calcium 9.0 mg/dl (8.6-10.3); Carbon Dioxide 28.0 mmol/L (21-32); Chloride 102.0 mmol/L (98-107); Creatinine Clr Calc Pharmacy 29.5 ml/min; Glucose 101.0 mg/dl (70-99(Fasting)); Potassium 4.3 mmol/L (3.5-5.1); Sodium 136.0 mmol/L (136-145)
[2025-05-18] MEDS: DAPTOmycin 500 MG in SYRINGE 0 ML IV SCH (09:00)
--- NOTE | 2025-05-18 10:23 | Orthopedic Progress Note ---
Date of Service May 18, 2025 Assessment & Plan (1) Septic arthritis of shoulder, left: (2) Left arm pain: (3) Obesity: (4) Rib fractures: (5) Status post splenectomy: (6) Elevated troponin: (7) Type 1 diabetes: (8) CKD (chronic kidney disease): (9) CAD (coronary artery disease): (10) Seizure-like activity: (11) Hypothyroidism: Plan Postoperative day #2 status post irrigation and debridement left shoulder the and open approach. Intraoperative and preop aspiration cultures have returned Staph aureus with sensitivities pending. Overall, the patient is improved as compared to preop with improved mentation and improved pain in the shoulder, however her CRP has continued to trend up which is somewhat confusing. Would recommend to consider alternative sources of infection as well. Recommend infectious disease consultation With guards to the left upper extremity, patient can use the sling for comfort. She should work on gentle range of motion with Codman's and pendulums with physical therapy. She is okay to bear weight on her left upper extremity. Will continue to follow Admission and Anticipated Discharge Date Admission Date: May 15, 2025 Subjective 69-year-old female postoperative day #2 status post irrigation debridement left shoulder. Patient notes her shoulder pain is improved, but her arm still feels "stiff and tight". Review of Systems Review of Systems: All systems reviewed & are unremarkable except as noted in HPI & below Physical Exam Physical Exam: On physical examination, the patient's surgical dressing is clean dry and inta ct. She has an area of erythema in her mid forearm at the site of her previous IV stick. This area has been marked and the erythema is improving. Patient has improved edema of the upper extremity as compared to preop. She has no pain with passive range of motion of the fingers or wrist. No pain with passive range of motion of the elbow. She continues to demonstrate pain with left shoulder palpation, however improved from prior. She has intact sensation C5- T1. She has intact AIN, PIN, radial, median, ulnar nerve motor function. She has palpable radial pulse. Results & Data Vital Signs (Past 12 Hours) Vital Signs Temp Pulse Pulse Resp BP BP Pulse Ox 05/18/25 08:00 05/18/25 07:41 37.1 C 67 19 149/72 H 96 05/18/25 07:00 67 05/18/25 03:03 37.0 C 71 18 154/70 H 95 05/17/25 23:11 82 05/17/25 22:59 37.3 C 77 18 149/67 H 91 05/17/25 22:21 O2 Del Method O2 Flow Rate 05/18/25 08:00 Nasal Cannula 1 05/18/25 07:41 Nasal Cannula 1 05/18/25 07:00 05/18/25 03:03 Nasal Cannula 2 05/17/25 23:11 05/17/25 22:59 Nasal Cannula 1 05/17/25 22:21 Nasal Cannula 1 Laboratory Results CRP 17.01 WBC 9.84 (8) CKD (chronic kidney disease) Chronic kidney disease stage: unspecified stage Qualified Code(s): N18.9 - Chronic kidney disease, unspecified
--- NOTE | 2025-05-18 18:15 | Hospitalist Progress Note ---
Date of Service May 18, 2025 Assessment & Plan (1) Septic arthritis of shoulder, left: (2) Cephalic vein thrombosis, left: (3) Acute metabolic encephalopathy: (4) ROXANA (acute kidney injury): (5) Seizure-like activity: (6) Elevated troponin: (7) Hypothyroidism: (8) Essential hypertension: (9) Type 1 diabetes: (10) CKD (chronic kidney disease): (11) Progressive neurologic decline: (12) LAKISHA (obstructive sleep apnea): (13) Frequent falls: (14) CAD (coronary artery disease): (15) Status post splenectomy: Plan Very complicated 69yo female with long-standing T1DM diagnosed in late teenage years, LAKISHA not on CPAP, HTN, remote h/o ITP, ?babesiosis, chronic ambulatory d ysfunction/balance difficulties, hypothyroidism, history of splenic laceration & rib fractures s/p trauma 02/2025 with resulting splenectomy & trauma ICU stay at [facility], history of seizure vs syncope on several occasions in the last year, question of underlying cognitive impairment, CKD unknown stage, hyperlipidemia, and ?CAD (not treated with stents) who presents after having been discharged from [facility] earlier today. Ms Ibarra was admitted to [facility] on 05/06/25 after having an unwitnessed fall followed by an episode of seizure vs syncope. The latter was witnessed by her (see details below). After her admission to [facility] on 05/06 she underwent MRI brain which by report was negative for acute stroke or other acute process, EEG (also negative for seizure by report), and was treated for ROXANA which by the family's report may have been due to IV CT contrast. By report her creatinine was as high as 6. During her stay at [facility] she developed significant mental status changes and was lethargic. On 05/09/25, her family recalls that they presumptively treated her for possible seizure and Keppra 500mg BID was started about that time. She subsequently developed severe left arm pain around 05/11/25, and the left arm pain progressed over a 3-4 day period to the point of any movement of the left arm/shoulder caused exquisite pain. #septic arthritis of Left Shoulder - present on admission - -appreciate Dr Rubin's assistance from orthopedics -STAT MRI L shoulder on hospital day #1 showed glenohumeral joint effusion as well as ?bone marrow edema with cystic changes and erosion in superior facet of greater tuberosity -Dr Rubin subsequently performed arthrocentesis of the L shoulder yielding 10ml of fluid and gram stain +GPC -crystal analysis negative -cell counts - WBCs 75,000 -with leukocytosis, elevated ESR/CRP, and the joint fluid findings along with clinical picture this was all concerning for L shoulder septic arthritis -POD #2 - -s/p I & D of the L shoulder by Dr Rubin -gross purulent fluid found in the L shoulder joint during the I/D -daptomycin IV started 18 which will cover staph aureus that is growing in her cultures -3 cultures all + for staph aureus; should have sensitivities back by 05/19; if MSSA then transition to Ancef -blood cx's remain negative to date -pain control -- norco prn, tylenol 500 TID scheduled; add IV pain meds, if needed -cause of septic shoulder.....did she seed the joint from septic left arm phlebitis? other cause? -the asplenic state and her T1DM are two set-ups for increased risk of any infectious process -patient will likely need 6-week course of IV antibiotic treatment -fortunately she has a central port in place -will obtain ID consult on Monday, 05/19 #acute left cephalic vein phlebitis/thrombosis - -2nd to prior IV in that arm at outside hospital -unfortunately cannot use NSAIDs due to ROXANA -warm compresses prn -cont her baby aspirin that is chronic for her -did the phlebitis become "septic" leading to her septic arthritis of the left shoulder? 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 seen only -for night-time - schedule melatonin; zyprexa prn for severe agitation #seizure-like activity vs syncope - recurrent episodes over last 1-2 years - -most recent episode was 05/06/25 -appreciate consultation by Dr Dela Cruz from [facility] -will continue keppra 500mg BID for now to cover for possible seizures -checked echo - nothing on such that would have led to syncope -telemetry thus far negative for a.fib/flutter -check orthostatic BPs when able -high fall risk - suspect she likely has diabetic neuropathy at baseline but interestingly denies paresthesias -checked B12 level - wnl -B1 level pending -Lyme screen negative -Dr Dela Cruz advised a repeat MRI brain when able (with contrast if renal function allows) #ambulatory dysfunction/gait disturbance/frequent falls - -see above -PT/OT evals pending #long-standing T1DM - -has been alternating recently between twcie daily Toujeo and Lantus at home -remains on lantus 20 units HS, 15 units qam, and novolog - CF 35, carb ratio 1:12 -pre-prandial levels high -- will increase CF to 30 and carb ratio to 1:10 -Hba1c 7.4% #CKD, uncertain stage - -would need to get records to check baseline levels -apparently had Cr of nearly 6 recently at [place] -Cr is improving - Cr now 1.9 -BMP am #ROXANA - present on admission - improving - -had CT a/p at [place] during recent stay; I reviewed this CT with our radiologist -- NO obstruction seen on CT; kidneys anatomically wnl -BMP in am #HTN - -cont home meds but hold losartan due to ROXANA #hypothyroidism - -TSH minimally elevated -in light of illness would leave synthroid as is and repeat TSH in 4 weeks as outpatient #h/o head injury - multiple occurrences - -suspect a concussion from her recent head injury on 05/06/25 -also had head injury 02/2025 and probably on prior falls as well #hyperlipidemia - -hold statin while on daptomycin #LAKISHA - untreated - -consider overnight oxymetry study closer to d/c to see if she qualifies for night-time O2 -cannot tolerate NIPPV unfortunately #??recent dx of babesiosis?? - -uncertain details on this -smear is negative; sent DNA test -no clinical evidence of this tick-borne illness based on history or labs #h/o CAD - -no ischemic sx's at this time -mild troponin elevation likely myocardial demand ischemia in setting of ROXANA, other acute medical issues #post-splenectomy state - -will need to check with family to see if she got encapsulated pathogen vaccines - pneumococcal, HIB, etc. #DVT prophylaxis - -heparin 5000 BID; increase the dose if there is further renal recovery appreciate ortho assistance updated pt's daughter Juliann Mejia by phone 05/17 updated pt's daughter via [facility] correspondence PT/OT johnathon pending progressing nicely Admission and Anticipated Discharge Date Admission Date: May 15, 2025 Subjective had severe sundowning/confusion overnight last pm by report her daughter - who works here at [employer] as nurse - had to come to bedside to help re-orient her & calm her down during my visit today she was awake, alert, not agitated, calm and fully oriented only complaint was that of L shoulder pain intermittently requiring 1 L NC O2 moving bowels asks about "going home for [place]" Review of Systems Review of Systems: gen - no fevers or chills; eating better cv - no cp pulm - no dyspnea at rest GI - no abd pain or N/V Physical Exam Physical Exam: gen - resting in bed; awake/alert/oriented; NAD; looks good today HENT - MMM neck - no JVD heart - RRR, s1 s2, no murmur; port R upper chest clean lungs - CTA b/l with decreased BS L base abd - soft NT ND BS+; no HSM ext - no edema of legs, pulses 2+ b/l feet musculo - left shoulder/arm in sling; dressing intact L shoulder psych - a/o x 3 skin - left forearm - area of phlebitis with surrounding erythema - again improved; erythema is receding from previously placed demarkation lines drawn by outside hospital; palpable cord present in this region; generalized edema from the mid-upper arm to the hand; passive ROM of L elbow and L wrist wnl Results & Data Results & Data Vital Signs (Past 12 Hours) Vital Signs Temp Pulse Pulse Resp BP Pulse Ox O2 Del Method 05/18/25 15:34 57 L 05/18/25 14:52 36.9 C 62 20 149/79 H 93 Room Air 05/18/25 08:00 Nasal Cannula 05/18/25 07:41 37.1 C 67 19 149/72 H 96 Nasal Cannula 05/18/25 07:00 67 O2 Flow Rate 05/18/25 15:34 05/18/25 14:52 05/18/25 08:00 1 05/18/25 07:41 1 05/18/25 07:00 Laboratory Results Laboratory Results - last 24 hr 05/17/25 05/18/25 05/18/25 20:28 05:45 07:36 WBC 9.84 RBC 3.14 L Hgb 9.4 L Hct 30.8 L MCV 98.1 MCH 29.9 MCHC 30.5 L RDW Std Deviation 48.6 H RDW Coeff of Shruthi 13.9 Plt Count 432 H MPV 11.5 Sodium 136 Potassium 4.3 Chloride 102 Carbon Dioxide 28 Anion Gap 6 BUN 30 H Creatinine 1.99 H Est Cr Clr Drug Dosing 29.5 eGFR 26.87 BUN/Creatinine Ratio 15.1 Glucose 101 H POC Glucose 151 H 102 H Calcium 9.0 C-Reactive Protein 17.01 H 05/18/25 05/18/25 11:09 15:57 POC Glucose 171 H 180 H Diagnostic Findings Microbiology 05/15/25 Unknown Shoulder,Left Gram Stain - Final 05/15/25 Unknown Shoulder,Left Aerobic and Anaerobic Culture - Preliminary Staphylococcus aureus 05/16/25 14:02 Shoulder,Left Gram Stain - Final 05/16/25 14:02 Shoulder,Left Aerobic and Anaerobic Culture - Preliminary Staphylococcus aureus 05/16/25 14:02 Shoulder,Left Gram Stain - Final 05/16/25 14:02 Shoulder,Left Aerobic and Anaerobic Culture - Preliminary Staphylococcus aureus 05/15/25 19:41 Blood Aerobic Blood Culture - Preliminary No growth in Aerobic bottle after 48 hours. 05/15/25 19:41 Blood Anaerobic Blood Culture - Preliminary No growth in Anaerobic bottle after 48 hours. 05/15/25 19:48 Blood Aerobic Blood Culture - Preliminary No growth in Aerobic bottle after 48 hours. 05/15/25 19:48 Blood Anaerobic Blood Culture - Preliminary No growth in Anaerobic bottle after 48 hours. PG Care Time/CCT Total # of Minutes Spent Total Time Spent with Patient: Total time spent is greater than 50% in coordination of care (as documented) at patient's floor/unit and/or counseling patient: Coding Level of Care Code 06953 SUB INP/OBS CARE 3/50MIN Diagnoses Septic arthritis of shoulder, left M00.9 Cephalic vein thrombosis, left I82.612 Acute metabolic encephalopathy G93.41 ROXANA (acute kidney injury) N17.9 Seizure-like activity R29.818 Elevated troponin R79.89 Hypothyroidism E03.9 Essential hypertension I10 Type 1 diabetes E10.9 CKD (chronic kidney disease) N18.9 Chronic kidney disease stage: unspecified stage Progressive neurologic decline R29.818 LAKISHA (obstructive sleep apnea) G47.33 Frequent falls R29.6 CAD (coronary artery disease) I25.10 Status post splenectomy Z90.81 (10) CKD (chronic kidney disease) Chronic kidney disease stage: unspecified stage Qualified Code(s): N18.9 - Chronic kidney disease, unspecified
[2025-05-18] MEDS: MELATONIN 3 MG TAB PO SCH (21:43)
[2025-05-19 06:26] LABS: Anion Gap 7.0 (3-11); Blood Urea Nitrogen 32.0 mg/dl (6-23); Calcium 8.8 mg/dl (8.6-10.3); Carbon Dioxide 28.0 mmol/L (21-32); Chloride 103.0 mmol/L (98-107); Creatinine Clr Calc Pharmacy 28.1 ml/min; Glucose 84.0 mg/dl (70-99(Fasting)); Potassium 4.0 mmol/L (3.5-5.1); Sodium 138.0 mmol/L (136-145)
[2025-05-19] MEDS: LANTUS PER UNIT CHARGE SQ SCH (08:52)
--- NOTE | 2025-05-19 09:05 | Neurology Progress Note ---
Date of Service May 19, 2025 Assessment & Plan (1) Acute metabolic encephalopathy: (2) Seizure-like activity: (3) Frequent falls: (4) Essential hypertension: Plan This is a complicated patient from a neurologic standpoint with many issues present. The patient likely had an acute encephalopathy superimposed on an underlying mild cognitive impairment. I think the history is consistent with a mild progressive cognitive problem over the last 2 years. This has worsened since her events February 2025 and in April 2025. Multiple factors related to the superimposed encephalopathy including head trauma, hypertension, renal issues, and infection. I note that times when she is confused are often associated with elevated blood pressure readings. Overall, any external factors could make her cognitive function worse. Today her mental status is much improved compared to the . She has a staff aureus infection of the left shoulder joint, treated with daptomycin. She is much improved. Blood cultures did not reveal any overt sepsis Patient has had falls and events that included seizure-like activity. I am not convinced these are primary seizure events, but sound more like syncope (likely from cardiovascular issues) with secondary seizure activity associated. 1 event in January 2024 was associated with bradycardia in the 30s. I cannot exclude an underlying cardiac dysrhythmia or orthostasis in previous events. Typically, new onset seizures in someone in their 60s would have a specific reason from a neurologic standpoint. MRI of the brain done last week showed no obvious issues except for some mild old small vessel ischemic disease (typically from diabetes and hypertension). In addition, she likely has a diabetic neuropathy with sensory ataxia leading to falling. Although her balance is better today she is still has a mild sensory ataxia. Recommendations: 1. Levetiracetam was continued at 500 mg twice a day. I am not certain she needs this in the long run and levetiracetam is likely not the best medication for her, as it may add to mental status/mood issues. Might change if needed as an outpatient. 2. Once her kidney function is improved I recommend MRI of the brain with and without contrast with attention to the temporal lobes. 3. EMG and nerve conduction study of the lower extremities (this has to be done as an outpatient) -evaluate for neuropathy. 4. Continue cardiac monitoring (and consider cardiology consult if cardiac dysrhythmia is further suspected 5. Avoid medications which alter mental status when treating her pain. I note that she is on a low-dose of gabapentin and I am not sure what this is actually helping 6. Consider repeat EEG if the patient has another episode/spell. 7. She may need neuropsychological testing to evaluate for dementia (as an outpatient). 8. Please contact me if I can be of further assistance on this case and I would be happy to follow her (neurology PA in 2 to 3 weeks) as an outpatient Overall, I spent a total of 55 minutes with this case including review of records, direct evaluation the patient at bedside, report generation, and discussion of the case with the patient and RN at bedside,and Dr. Walker including differential diagnosis and treatment. Admission and Anticipated Discharge Date Admission Date: May 15, 2025 Subjective Patient is doing much better today compared to May 16, when I last saw her. She has some left shoulder pain but it is fairly comfortable when she does not try to move her left upper extremity. She has no pain otherwise and no headaches. She is not dizzy. She can stand on her own power and transfer to the bathroom. She feels her balance is off a little bit still Nursing's report no seizures or new events. She has anemia and CHEM profile from today shows a BUN of 32 and a creatinine of 2.0. C-reactive protein was 10. Blood pressure was 179/78. B12 and Lyme studies earlier this hospitalization were unremarkable/normal Results & Data Vital Signs (Past 12 Hours) Vital Signs Temp Pulse Resp BP Pulse Ox O2 Del Method 05/19/25 07:25 37.5 C 69 18 176/78 H 93 Room Air 05/19/25 02:44 36.9 C 65 14 162/69 H 90 Room Air 05/18/25 22:42 37.3 C 63 14 162/80 H 94 Room Air Exam (Neuro) Physical Exam: She is awake and alert. Speech is without aphasia or dysarthria. Mood is reasonable affect is appropriate. She is calm and pleasant throughout, and thought processes are reasonable to conversation. Extraocular eye muscles are intact without nystagmus. There is no facial droop. Tongue is midline. Coordination is normal in the right upper extremity. There is no tremor or ataxia. Motor strength is 5/5 diffusely in the right upper extremity and both legs both proximally and distally. Motor strength is actually essentially 5/5 in the left upper extremity although she has quick giveaway weakness proximally secondary to pain. Distally she has good facility in the left hand. PG Care Time/CCT Total # of Minutes Spent Total Time Spent with Patient: Total time spent is greater than 50% in coordination of care (as documented) at patient's floor/unit and/or counseling patient: Coding Level of Care Code 77699 SUB INP/OBS CARE 3/50MIN Diagnoses Acute metabolic encephalopathy G93.41 Seizure-like activity R29.818 Frequent falls R29.6 Essential hypertension I10 Time Spent (min) 55
--- NOTE | 2025-05-19 10:01 | Orthopedic Progress Note ---
Date of Service May 19, 2025 Assessment & Plan (1) Septic arthritis of shoulder, left: (2) Left arm pain: (3) Obesity: (4) Rib fractures: (5) Status post splenectomy: (6) Elevated troponin: (7) Type 1 diabetes: (8) CKD (chronic kidney disease): (9) CAD (coronary artery disease): (10) Seizure-like activity: (11) Hypothyroidism: Plan Postoperative day #3 status post irrigation and debridement left shoulder the and open approach. Intraoperative and preop aspiration cultures have returned Staph aureus with resistance to erythromycin and clindamycin Overall, the patient is improved as compared to preop with improved mentation and improved pain in the shoulder,. Patient CRP down trended today as compared to yesterday. Will continue to follow Infectious disease consultation still pending With regards to the left upper extremity, patient can use the sling for comfort. She should work on gentle range of motion with Codman's and pendulums with physical therapy. She is okay to bear weight on her left upper extremity. Will continue to follow Admission and Anticipated Discharge Date Admission Date: May 15, 2025 Subjective Postoperative day #3 status post irrigation debridement left shoulder. Patient notes improvement today as compared to yesterday. Infectious disease consult still pending. Physical Exam Physical Exam: On physical examination, the patient's surgical dressing is clean dry and intact. She has an area of erythema in her mid forearm at the site of her previous IV stick. This area has been marked and the erythema is improving. Patient has improved edema of the upper extremity as compared to preop. She has no pain with passive range of motion of the fingers or wrist. No pain with passive range of motion of the elbow. She continues to demonstrate pain with left shoulder palpation, however improved from prior. She has intact sensation C5-T1. She has intact AIN, PIN, radial, median, ulnar nerve motor function. She has palpable radial pulse. Results & Data Vital Signs (Past 12 Hours) Vital Signs Temp Pulse Resp BP Pulse Ox O2 Del Method 05/19/25 08:00 Room Air 05/19/25 07:25 37.5 C 69 18 176/78 H 93 Room Air 05/19/25 02:44 36.9 C 65 14 162/69 H 90 Room Air 05/18/25 22:42 37.3 C 63 14 162/80 H 94 Room Air Diagnostic Findings CRP 10.84 down from 17 yesterday (8) CKD (chronic kidney disease) Chronic kidney disease stage: unspecified stage Qualified Code(s): N18.9 - Chronic kidney disease, unspecified
--- NOTE | 2025-05-19 14:55 | Infectious Disease Consult ---
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, ?babesiosis, chronic ambulatory dysfunction/balance difficulties, hypothyroidism, history of splenic laceration & rib fractures s/p trauma 02/2025 with resulting splen[facility], seizure vs syncope on several occasions in the last year, ?underlying cognitive impairment, CKD, HLD, ?CAD (not treated with stents), [facility] after an unwitnessed fall followed by seizure v syncope and tx for ROXANA who presented on 05/15 after having been discharged from [facility] earlier that day with confusion, severe left arm pain. On admission, she was afebrile. WBC 10.89. Cr 2.99. AST/ALT wnl. ESR 86, CRP 10.3>>17>10.84. UA neg. CXR with LLL opacity could be atelectasis or PNA. LUE doppler with SVT in left cephalic vein. XR left arm unremarkable. MRI left shoulder with moderate glenohumeral joint effusion, subacromial/deltoid and subcoracoid bursitis, bone marrow edema with cystic changes and erosion in superior facet of greater tuberosity. S/p arthrocentesis of left shoulder on 05/15, 10 cc of cloudy fluid noted, WBC 75,250, c/f septic arthritis. S/p OR on 05/16 and underwent left shoulder I+D (per op note, debrided all devitalized tissue down to the level of bone). ID consulted 05/19. MRI is read to have bone marrow edema, but doesnt comment on whether this is osteomyelitis. I have not been able to discuss this with radiology since the radiologist who read the image was an outside radiology. Since debridement was down to bone and with marrow edema, may consider treating as OM with septic arthritis, which is 6 weeks rather than 4 weeks for [place] joint septic arthritis. # Left shoulder septic arthritis 2/2 MSSA s/p I+D on 05/16 # Left cephalic thrombophlebitis # H/o T1DM # ROXANA Cr improving - continue on cefazolin 2g IV q12h (renally dosed) - she will need 4-6 weeks of IV abx (will see if I can get a hold of radiology regarding the bone marrow edema on MRI, otherwise will favor the longer 6wk course for probable OM), start date is 05/16 - she will need weekly CBC w diff, CMP, ESR, CRP while on IV abx - will arrange for OPAT visit - would ensure she can safely administer IV abx via her chest port Will continue to follow. Karoline Soto MD [facility], Division of Infectious Diseases [facility]: [phone] Consultation Information Consultation was provided via telemedicine using two-way real-time interactive telecommunication between the patient and the telemedicine provider. For the duration of the visit, the provider was performing the assessment from a different facility than the patient. This includesuse of bluetooth stethoscope forauscultationperformed by the telepresenter that the telemedicine provider can hear if described in the physical exam. Cutter Machine contact information: Please call [facility] Connect Call Center . (Phone Number For Physician Use Only) After establishing a telemedicine visit, patient was: Patient was verified with two unique identifiers, Patient/authorized rep acknowledged consent and understanding and Gave permission to continue telehealth session Time Spent with Patient: Initial => 75 min History of Present Illness Reason for Consultation: left septic shoulder / MSSA Attending Physician: Vernon Walker MD History of Present Illness 69yo F with h/o T1DM dx late teens, LAKISHA not on CPAP, HTN, remote ITP, ?babesiosis, chronic ambulatory dysfunction/balance difficulties, hypothyroidism, history of splenic laceration & rib fractures s/p trauma 02/2025 with resulting splenectomy & trauma ICU stay at [facility], seizure vs syncope on several occasions in the last year, ?underlying cognitive impairment, CKD, HLD, ?CAD (not treated with stents), [facility] after an unwitnessed fall followed by seizure v syncope and tx for ROXANA who presented on 05/15 after having been discharged from [facility] earlier that day with confusion, severe left arm pain. Per chart, at [facility], she had AMS that was presumed to be r/t seizure, development of significant left arm pain/swelling around 05/11-05/12 that extended from shoulder all the way down. On admission, she was afebrile. WBC 10.89. Cr 2.99. AST/ALT wnl. ESR 86, CRP 10.3>>17>10.84. UA neg. CXR with LLL opacity could be atelectasis or PNA. LUE doppler with SVT in left cephalic vein. XR left arm unremarkable. MRI left shoulder with moderate glenohumeral joint effusion, subacromial/deltoid and subcoracoid bursitis, bone marrow edema with cystic changes and erosion in superior facet of greater tuberosity. S/p arthrocentesis of left shoulder on 05/15, 10 cc of cloudy fluid noted, WBC 75,250, c/f septic arthritis. S/p OR on 05/16 and underwent left shoulder I+D (per op note, debrided all devitalized tissue down to the level of bone). ID consulted 05/19. On evaluation, she says that in February, she injured her shoulder from a fall for which she was at [facility]. Had another fall afterwards for which she was at [facility]. Left shoulder is sore. She has a wound vac. She does also have a chest port for weekly injections for ITP. But last injection was 4 weeks ago. Allergies Allergy/AdvReac Type Severity Reaction Status Date / Time allopurinol Allergy Unknown Unknown Verified 05/15/25 18:32 atorvastatin Allergy Unknown Unknown Verified 05/15/25 18:32 cephalexin Allergy Unknown Unknown Verified 05/15/25 18:32 ciprofloxacin Allergy Unknown Unknown Verified 05/15/25 18:32 Penicillins Allergy Unknown Unknown Verified 05/15/25 18:32 sulfamethoxazole Allergy Unknown Unknown Verified 05/15/25 18:32 [From Sulfamethoxazole-Trimethoprim] trimethoprim Allergy Unknown Unknown Verified 05/15/25 18:32 [From Sulfamethoxazole-Trimethoprim] Home Medications Medication Instructions Recorded Confirmed Type acetaminophen 500 mg tablet 1,000 mg PO Q6H PRN Pain 05/15/25 05/15/25 History (Tylenol Extra Strength) amlodipine 2.5 mg tablet 2.5 mg PO QAM 05/15/25 05/15/25 History aspirin 81 mg tablet,delayed 81 mg PO DAILY 05/15/25 05/15/25 History release biotin 10 mg tablet 10 mg PO DAILY 05/15/25 05/15/25 History calcitriol 0.25 mcg capsule 0.25 mcg PO QAM 05/15/25 05/15/25 History cholecalciferol (vitamin D3) 125 125 mcg PO DAILY 05/15/25 05/15/25 History mcg (5,000 unit) tablet (Vitamin D3) ezetimibe 10 mg tablet (Zetia) 10 mg PO HS 05/15/25 05/15/25 History famotidine 20 mg tablet (Pepcid) 20 mg PO BID 05/15/25 05/15/25 History ferrous sulfate 325 mg (65 mg 325 mg PO DAILY 05/15/25 05/15/25 History iron) tablet folic acid 1 mg tablet 1 mg PO DAILY 05/15/25 05/15/25 History furosemide 20 mg tablet (Lasix) 20 mg PO DAILY 05/15/25 05/15/25 History gabapentin 100 mg capsule 100 mg PO BID 05/15/25 05/15/25 History insulin glargine U-300 conc 300 30 unit subcut BID 05/15/25 05/15/25 History unit/mL (3 mL) subcutaneous pen (Toujeo Max U-300 SoloStar) insulin lispro 100 unit/mL 1 sliding scale dose subcut TIDM 05/15/25 05/15/25 History subcutaneous solution (Humalog U-100 Insulin) latanoprost 0.005 % eye drops 1 drp OPB HS 05/15/25 05/15/25 History levetiracetam 500 mg tablet 500 mg PO BID 05/15/25 05/15/25 History levothyroxine 150 mcg tablet 150 mcg PO DAILYBB 05/15/25 05/15/25 History losartan 100 mg tablet 100 mg PO DAILY 05/15/25 05/15/25 History metoprolol tartrate 25 mg tablet 25 mg PO BID 05/15/25 05/15/25 History omega-3 fatty acids 1,000 mg 1,000 mg PO DAILY 05/15/25 05/15/25 History capsule pantoprazole 40 mg tablet,delayed 40 mg PO DAILY 05/15/25 05/15/25 History release sennosides 8.6 mg-docusate sodium 2 tab-cap PO HS 05/15/25 05/15/25 History 50 mg tablet (Senna Plus) simvastatin 20 mg tablet 20 mg PO HS 05/15/25 05/15/25 History turmeric root extract 500 mg tablet 1,000 mg PO DAILY 05/15/25 05/15/25 History vitamin B complex 1 tab PO HS 05/15/25 05/15/25 History Patient History Medical History Hypothyroidism Seizure-like activity multiple events ; seizure vs syncope CAD (coronary artery disease) no h/o stents History of ITP Frequent falls LAKISHA (obstructive sleep apnea) not on CPAP/BIPAP - cannot tolerate such Progressive neurologic decline CKD (chronic kidney disease) Rib fractures 02/2025 Type 1 diabetes diagnosed age 18 Essential hypertension Splenic laceration 02/2025 Surgical History 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 - [facility] Family History Mother , age 77; had multiple CVAs Stroke Social History Smoking Status: Never smoker Smoking End Date: pt smoked when in high school; Second Hand Exposure: No; Do You Dip or Chew Tobacco: No; Tobacco Cessation Education Requested by Patient: No Hx Alcohol Use: Yes Alcohol Intake Frequency: Monthly or Less Hx Substance Use: No Preferred Language: Sami Communication Ability: Effective Gardening Manager Required: No Beliefs That Will Affect Care: None marital status: Current Living Situation: Spouse current occupational status: retired 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 Physical Exam Physical Exam: General: Awake, alert, no acute distress HEENT: NC/AT, EOMI, mmm Neck: supple Lungs: respirations non-labored Chest: right sided port, no tenderness or erythema Abdomen: soft, NT/ND Ext: left shoulder with wound vac and dressing, left forearm with swelling and area of erythema Results & Data Vital Signs (Past 12 Hours) Vital Signs Temp Pulse Pulse Resp BP BP Pulse Ox 05/19/25 13:10 69 05/19/25 10:57 37.1 C 69 19 168/68 H 96 05/19/25 08:00 05/19/25 07:25 37.5 C 69 18 176/78 H 93 O2 Del Method 05/19/25 13:10 05/19/25 10:57 Room Air 05/19/25 08:00 Room Air 05/19/25 07:25 Room Air Laboratory Results Labs reviewed. Diagnostic Findings Imaging reviewed.
--- NOTE | 2025-05-19 20:04 | Hospitalist Progress Note ---
Date of Service May 19, 2025 Assessment & Plan (1) Septic arthritis of shoulder, left: (2) Cephalic vein thrombosis, left: (3) Acute metabolic encephalopathy: (4) ROXANA (acute kidney injury): (5) Seizure-like activity: (6) Elevated troponin: (7) Hypothyroidism: (8) Essential hypertension: (9) Type 1 diabetes: (10) CKD (chronic kidney disease): (11) Progressive neurologic decline: (12) LAKISHA (obstructive sleep apnea): (13) Frequent falls: (14) CAD (coronary artery disease): (15) Status post splenectomy: Plan Very complicated 69yo female with long-standing T1DM diagnosed in late teenage years, LAKISHA not on CPAP, HTN, remote h/o ITP, ?babesiosis, chronic ambulatory d ysfunction/balance difficulties, hypothyroidism, history of splenic laceration & rib fractures s/p trauma 02/2025 with resulting splenectomy & trauma ICU stay at [facility], history of seizure vs syncope on several occasions in the last year, question of underlying cognitive impairment, CKD unknown stage, hyperlipidemia, and ?CAD (not treated with stents) who presents after having been discharged from [facility] earlier today. Ms Ibarra was admitted to [facility] on 05/06/25 after having an unwitnessed fall followed by an episode of seizure vs syncope. The latter was witnessed by her (see details below). After her admission to [facility] on 05/06 she underwent MRI brain which by report was negative for acute stroke or other acute process, EEG (also negative for seizure by report), and was treated for ROXANA which by the family's report may have been due to IV CT contrast. By report her creatinine was as high as 6. During her stay at [facility] she developed significant mental status changes and was lethargic. On 05/09/25, she was presumptively treated her for possible seizure and Keppra 500mg BID was started about that time. She subsequently developed severe left arm pain around 05/11/25, and the left arm pain progressed over a 3-4 day period to the point of any movement of the left arm/shoulder caused exquisite pain. #septic arthritis of Left Shoulder - present on admission - -MRI L shoulder on hospital day #1 showed glenohumeral joint effusion as well as ?bone marrow edema with cystic changes and erosion in superior facet of greater tuberosity -Dr Geovani Rubin - orthopedics - subsequently performed arthrocentesis of the L shoulder yielding 10ml of fluid and gram stain +GPC -crystal analysis negative -cell counts - WBCs 75,000 -with leukocytosis, elevated ESR/CRP, and the joint fluid findings along with clinical picture this was all concerning for L shoulder septic arthritis -POD #3 - -s/p I & D of the L shoulder by Dr Rubin -gross purulent fluid found in the L shoulder joint during the I/D -daptomycin IV started 05/15 -3 cultures from left shoulder all + for MSSA s -will d/c daptomycin and change to IV cefazolin -I corresponded with the pt's daughter re: possible cephalexin allergy -daughter not entirely certain what the reaction was, but possibly was ju st adverse rxn (nausea) -daughter comfortable with starting IV cefazolin and observing for any adverse rxn -blood cx's remain negative to date -pain control -- norco prn, tylenol 500 TID scheduled -cause of septic shoulder.....did she seed the joint from septic left arm phlebitis? other cause? -the asplenic state and her T1DM are two set-ups for increased risk of any infectious process -patient will likely need 6-week course of IV antibiotic treatment -fortunately she has a central port in place -ID consult requested today -ID advising IV cefazolin for at least 4-6 weeks -may have an element of osteomyelitis of the greater tuberosity of left shoulder on MRI (see above) #acute left cephalic vein phlebitis/thrombosis - present on admission - -2nd to prior IV in that arm at outside hospital -unfortunately cannot use NSAIDs due to ROXANA -warm compresses prn -cont her baby aspirin that is chronic for her -did the phlebitis become "septic" leading to her septic arthritis of the left shoulder? 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 seen only -for night-time - schedule melatonin to maintain sleep-wake cycle -altered MS and sundowning overall improving nicely #seizure-like activity vs syncope - recurrent episodes over last 1-2 years - -most recent episode was 05/06/25 -appreciate consultation by Dr Dela Cruz from [facility] -will continue keppra 500mg BID for now to cover for possible seizures -checked echo - nothing on such that would have led to syncope -telemetry thus far negative for a.fib/flutter -check orthostatic BPs today -high fall risk - suspect she likely has diabetic neuropathy at baseline but interestingly denies paresthesias -checked B12 level - wnl -B1 level pending -Lyme screen negative -Dr Dela Cruz advised a repeat MRI brain when able (with contrast if renal function allows); agree with such #ambulatory dysfunction/gait disturbance/frequent falls - -see above -PT eval done today -- rolling walker needed -OT eval pending -gait issues 2nd to diabetic neuropathy? #long-standing T1DM - -has been alternating recently between twice daily Toujeo and Lantus at home -remains on lantus 20 units HS, 15 units qam, and novolog - CF 35, carb ratio 1:12 -AM BSGs are trending lower -- will cut the AM lantus to 10 units -pre-prandial levels high -- increased CF to 30 and carb ratio to 1:10 -Hba1c 7.4% #CKD, uncertain stage - -would need to get records to check baseline levels -apparently had Cr of nearly 6 recently at [facility] -Cr is improving - Cr now 1.9/2 -BMP am #ROXANA - present on admission - improving - -had CT a/p at [facility] during recent stay; I reviewed this CT with our radiologist -- NO obstruction seen on CT; kidneys anatomically wnl -BMP in am #HTN - -cont home meds but hold losartan due to ROXANA / elevated creatinine #hypothyroidism - -TSH minimally elevated -in light of illness would leave synthroid as is and repeat TSH in 4 weeks as outpatient #h/o head injury - multiple occurrences - -suspect a concussion from her recent head injury on 05/06/25 -also had head injury 02/2025 and probably on prior falls as well #hyperlipidemia - -can resume statin; daptomycin stopped #LAKISHA - untreated - -consider overnight oxymetry study closer to d/c to see if she qualifies for night-time O2 -cannot tolerate NIPPV unfortunately #??recent dx of babesiosis?? - -uncertain details on this -smear is negative; sent DNA test -no clinical evidence of this tick-borne illness based on history or labs #h/o CAD - -no ischemic sx's at this time -mild troponin elevation likely myocardial demand ischemia in setting of ROXANA, other acute medical issues #post-splenectomy state - -did confirm with pt's family -- she DID get the necessary encapsulated pathogen vaccines - pneumococcal, HIB, etc. -- post splenectomy #DVT prophylaxis - -heparin 5000 BID; increase the dose if there is further renal recovery appreciate ortho assistance updated pt's daughter Juliann Roberto by phone 05/17 updated pt's daughter Juliann via [place] correspondence 05/18 updated pt's other daughter & on 05/19 at bedside dispo - home with HH? rehab? Admission and Anticipated Discharge Date Admission Date: May 15, 2025 Subjective tele overnight - NSR, no arrhythmia seen pt's forearm phlebitis area on left - not much pain if any still with mild L shoulder pain overall did well last pm - slept decently she is eating better +stool - another formed BM today during the visit the pt's daughter & were present at bedside we discussed the PT eval done - they stated she could return home but she needs 24/7 supervision very unsteady/imbalanced on feet -- this improves w/ a yuriy walker Review of Systems Review of Systems: gen - no fevers or chills; eating well cv - no cp, no orthopnea pulm - no dyspnea or cough neuro - with working with PT no dizziness GI - no abd pain or N/V Physical Exam Physical Exam: gen - resting in bed; awake/alert/oriented x 3; NAD; looks well today HENT - MMM, no thrush neck - no JVD heart - RRR, s1 s2, no murmur; port R upper chest clean lungs - CTA b/l with decreased BS L base abd - soft NT ND BS+; no HSM ext - no edema of legs, pulses 2+ b/l feet; edema left arm improving musculo - left shoulder/arm in sling; dressing intact L shoulder psych - a/o x 3 skin - left forearm - area of phlebitis with surrounding erythema and palpable cord - continues to improve/recede; generalized edema from the mid-upper arm to the hand improving Results & Data Results & Data Vital Signs (Past 12 Hours) Vital Signs Temp Pulse Pulse Resp BP BP Pulse Ox 05/19/25 15:30 36.7 C 65 18 166/79 H 98 05/19/25 15:09 64 05/19/25 13:10 69 05/19/25 10:57 37.1 C 69 19 168/68 H 96 05/19/25 08:00 O2 Del Method 05/19/25 15:30 Room Air 05/19/25 15:09 05/19/25 13:10 05/19/25 10:57 Room Air 05/19/25 08:00 Room Air Laboratory Results Laboratory Results - last 24 hr 05/18/25 05/19/25 05/19/25 20:51 05:44 07:23 Sodium 138 Potassium 4.0 Chloride 103 Carbon Dioxide 28 Anion Gap 7 BUN 32 H Creatinine 2.09 H Est Cr Clr Drug Dosing 28.1 eGFR 25.34 BUN/Creatinine Ratio 15.3 Glucose 84 POC Glucose 202 H 87 Calcium 8.8 C-Reactive Protein 10.84 H 05/19/25 05/19/25 11:10 16:19 Sodium Potassium Chloride Carbon Dioxide Anion Gap BUN Creatinine Est Cr Clr Drug Dosing eGFR BUN/Creatinine Ratio Glucose POC Glucose 236 H 249 H Calcium C-Reactive Protein Diagnostic Findings Microbiology 05/16/25 14:02 Shoulder,Left Gram Stain - Final 05/16/25 14:02 Shoulder,Left Aerobic and Anaerobic Culture - Preliminary Staphylococcus aureus 05/16/25 14:02 Shoulder,Left Gram Stain - Final 05/16/25 14:02 Shoulder,Left Aerobic and Anaerobic Culture - Preliminary Staphylococcus aureus 05/15/25 Unknown Shoulder,Left Gram Stain - Final 05/15/25 Unknown Shoulder,Left Aerobic and Anaerobic Culture - Preliminary Staphylococcus aureus 05/15/25 19:41 Blood Aerobic Blood Culture - Preliminary No growth in Aerobic bottle after 48 hours. 05/15/25 19:41 Blood Anaerobic Blood Culture - Preliminary No growth in Anaerobic bottle after 48 hours. 05/15/25 19:48 Blood Aerobic Blood Culture - Preliminary No growth in Aerobic bottle after 48 hours. 05/15/25 19:48 Blood Anaerobic Blood Culture - Preliminary No growth in Anaerobic bottle after 48 hours. PG Care Time/CCT Total # of Minutes Spent Total Time Spent with Patient: Total time spent is greater than 50% in coordination of care (as documented) at patient's floor/unit and/or counseling patient: Coding Level of Care Code 52140 SUB INP/OBS CARE 3/50MIN Diagnoses Septic arthritis of shoulder, left M00.9 Cephalic vein thrombosis, left I82.612 Acute metabolic encephalopathy G93.41 ROXANA (acute kidney injury) N17.9 Seizure-like activity R29.818 Elevated troponin R79.89 Hypothyroidism E03.9 Essential hypertension I10 Type 1 diabetes E10.9 CKD (chronic kidney disease) N18.9 Chronic kidney disease stage: unspecified stage Progressive neurologic decline R29.818 LAKISHA (obstructive sleep apnea) G47.33 Frequent falls R29.6 CAD (coronary artery disease) I25.10 Status post splenectomy Z90.81 (10) CKD (chronic kidney disease) Chronic kidney disease stage: unspecified stage Qualified Code(s): N18.9 - Chronic kidney disease, unspecified
[2025-05-20 06:15] LABS: Hematocrit (blood only) 26.1 % (37.0-47.0); Hemoglobin 8.6 g/dL (12.0-16.0); Mean Corpuscular Hemoglobin 31.2 pg (25.0-34.0); Mean Corpuscular Volume 94.6 fL (80.0-100.0); Platelet Count 553 K/uL (130-400); RDW Standard Deviation 45.4 fL (36.4-46.3); Red Blood Count 2.76 M/uL (4.20-5.40); White Blood Count 7.61 K/ul (4.8-10.8)
[2025-05-20 06:39] LABS: Anion Gap 6.0 (3-11); Blood Urea Nitrogen 35.0 mg/dl (6-23); Calcium 8.7 mg/dl (8.6-10.3); Carbon Dioxide 29.0 mmol/L (21-32); Chloride 104.0 mmol/L (98-107); Creatinine Clr Calc Pharmacy 29.9 ml/min; Glucose 64.0 mg/dl (70-99(Fasting)); Potassium 3.8 mmol/L (3.5-5.1); Sodium 139.0 mmol/L (136-145)
[2025-05-20] MEDS: CARBOHYDRATES FOR HYPOGLYCEMIA PO PRN (07:24)
--- NOTE | 2025-05-20 09:23 | Infectious Disease Progress Nt ---
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, ?babesiosis, chronic ambulatory dysfunction/balance difficulties, hypothyroidism, history of splenic laceration & rib fractures s/p trauma 02/2025 with resulting splenectomy & trauma ICU stay at [facility], seizure vs syncope on several occasions in the last year, ?underlying cognitive impairment, CKD, HLD, ?CAD (not treated with stents), recent admission to [facility] 05/06-05/15 after an unwitnessed fall followed by seizure v syncope and tx for ROXANA who presented on 05/15 after having been discharged from [facility] earlier that day with confusion, severe left arm pain. On admission, she was afebrile. WBC 10.89. Cr 2.99. AST/ALT wnl. ESR 86, CRP 10.3>>17>10.84. UA neg. CXR with LLL opacity could be atelectasis or PNA. LUE doppler with SVT in left cephalic vein. XR left arm unremarkable. MRI left shoulder with moderate glenohumeral joint effusion, subacromial/deltoid and subcoracoid bursitis, bone marrow edema with cystic changes and erosion in superior facet of greater tuberosity. S/p arthrocentesis of left shoulder on 05/15, 10 cc of cloudy fluid noted, WBC 75,250, c/f septic arthritis. S/p OR on 05/16 and underwent left shoulder I+D (per op note, debrided all devitalized tissue down to the level of bone). ID consulted 05/19. MRI is read to have bone marrow edema. Per op note, debridement was also done down to the level of bone. Plan therefore to treat for 6 weeks with IV antibiotics for probable OM. # Left shoulder septic arthritis 2/2 MSSA s/p I+D on 05/16 # Left greater tuberosity bone marrow edema with cystic changes and erosion - ?OM # Left cephalic thrombophlebitis # Chest port # H/o T1DM # ROXANA Cr improving - continue on cefazolin 2g IV q12h (renally dosed, CrCl 29) - will plan for 6 weeks of therapy, start 12/19, end 06/27/25 - monitor weekly CBC w diff, CMP, ESR, CRP - will arrange OPAT visit, se below for details --- Outpatient Discharge summary, Discharging Physician please order the following on discharge: Diagnosis: Left shoulder [place] joint septic arthritis, probable osteomyelitis Organism: MSSA Antibiotic: cefazolin 2g IV q12h Start of therapy: 05/16 End of therapy: 06/27/25 Labs needed and frequency : weekly CBC w diff, CMP, ESR, CRP Labs should be faxed to ID office attention Zeenat Rodriguez [facility] [phone] Appointment-time frame 2-3 weeks The Infectious Disease (ID) clinic will contact the patient to schedule a follow-up appointment. If you have not heard from the clinic within one week of discharge, please call the ID clinic at [phone] and ask for Zeenat Rodriguez. Clinic Address [address] [place] [address] Office (P) [phone] Will discontinue active follow up at this time. Please do not hesitate to reconsult the Infectious Diseases service as needed. Karoline Soto MD [facility], Division of Infectious Diseases [facility]: [phone] Admission and Anticipated Discharge Date Admission Date: May 15, 2025 Subjective This patient recommendation is based on a telemedicine consult request which was completed asynchronously through chart review and information provided by the primary physician. The patient was not seen or examined today. The evaluation is consultative in nature and all patient care and treatment decisions can either be accepted or rejected by the patient's primary hospital-based treating physician using their own independent medical judgment for their patient. Time Spent Reviewing Chart: 31+ minutes Afebrile, WBC wnl. Results & Data Vital Signs (Past 12 Hours) Vital Signs Temp Pulse Pulse Resp BP Pulse Ox O2 Del Method 05/20/25 02:43 36.5 C 65 149/61 H 97 Room Air 05/20/25 00:12 69 05/19/25 22:41 36.5 C 66 20 184/66 H 93 Room Air Laboratory Results Labs reviewed. 05/15 BCX: ngtd 05/15 WCX: MSSA 05/16 OR cx (subdeltoid space): MSSA 05/16 OR cx (intraarticular left shoulder tissue): MSSA Cefazolin 05/19- Vanc 05/16 Dapto 05/15-05/18
--- NOTE | 2025-05-20 15:44 | Orthopedic Progress Note ---
Date of Service May 20, 2025 Assessment & Plan (1) Septic arthritis of shoulder, left: (2) Left arm pain: (3) Obesity: (4) Rib fractures: (5) Status post splenectomy: (6) Elevated troponin: (7) Type 1 diabetes: (8) CKD (chronic kidney disease): (9) CAD (coronary artery disease): (10) Seizure-like activity: (11) Hypothyroidism: Plan Postoperative day #4 status post irrigation and debridement left shoulder the and open approach. Intraoperative and preop aspiration cultures have returned Staph aureus with resistance to erythromycin and clindamycin Overall, the patient is improved as compared to preop with improved mentation and improved pain in the shoulder,. Patient CRP down trended down yesterday and infectious ease has been consulted and has not changed her monitoring of CRP to once weekly. final lab added for today With regards to the left upper extremity, patient can use the sling for comfort. She should work on gentle range of motion with Codman's and pendulums with physical therapy. She is okay to bear weight on her left upper extremity. The dressing she has in place is a mellissa dressing. The battery pack will last for 7 days. Once the battery pack has run out of battery, this can be disconnected and the dressing can be left in place. I will plan to change the patient's dressing and remove her sutures in clinic in about 2 weeks. Antibiotics per ID on aspirin for DVT prophylaxis No acute plans for orthopedic intervention at this time Admission and Anticipated Discharge Date Admission Date: May 15, 2025 Subjective Postoperative day #4 status post left shoulder irrigation debridement for septic arthritis. Pain is improving. Review of Systems Review of Systems: All systems reviewed & are unremarkable except as noted in HPI & below Physical Exam Physical Exam: On physical examination, the patient's surgical dressing is clean dry and intact. She has an area of erythema in her mid forearm at the site of her previous IV stick. This area has been marked and the erythema is improving. Patient has improved edema of the upper extremity as compared to preop. She has no pain with passive range of motion of the fingers or wrist. No pain with passive range of motion of the elbow. She continues to demonstrate pain with left shoulder palpation, however improved from prior. She has intact sensation C5-T1. She has intact AIN, PIN, radial, median, ulnar nerve motor function. She has palpable radial pulse. Results & Data Vital Signs (Past 12 Hours) Vital Signs Temp Pulse Pulse Resp BP BP Pulse Ox 05/20/25 14:31 60 05/20/25 12:45 62 05/20/25 11:25 36.8 C 57 L 20 157/71 H 98 05/20/25 08:00 36.8 C 61 17 155/84 H 97 O2 Del Method 05/20/25 14:31 05/20/25 12:45 05/20/25 11:25 Room Air 05/20/25 08:00 Room Air (8) CKD (chronic kidney disease) Chronic kidney disease stage: unspecified stage Qualified Code(s): N18.9 - Chronic kidney disease, unspecified
--- NOTE | 2025-05-20 20:05 | Hospitalist Progress Note ---
Date of Service May 20, 2025 Assessment & Plan (1) Septic arthritis of shoulder, left: (2) Cephalic vein thrombosis, left: (3) Acute metabolic encephalopathy: (4) ROXANA (acute kidney injury): (5) Seizure-like activity: (6) Elevated troponin: (7) Hypothyroidism: (8) Essential hypertension: (9) Type 1 diabetes: (10) CKD (chronic kidney disease): (11) Progressive neurologic decline: (12) LAKISHA (obstructive sleep apnea): (13) Frequent falls: (14) CAD (coronary artery disease): (15) Status post splenectomy: Plan Very complicated 69yo female with long-standing T1DM diagnosed in late teenage years, LAKISHA not on CPAP, HTN, remote h/o ITP, ?babesiosis, chronic ambulatory d ysfunction/balance difficulties, hypothyroidism, history of splenic laceration & rib fractures s/p trauma 02/2025 with resulting splenectomy & trauma ICU stay at [facility], history of seizure vs syncope on several occasions in the last year, question of underlying cognitive impairment, CKD unknown stage, hyperlipidemia, and ?CAD (not treated with stents) who presents after having been discharged from [facility] earlier today. Ms Ibarra was admitted to [facility] on 05/06/25 after having an unwitnessed fall followed by an episode of seizure vs syncope. The latter was witnessed by her (see details below). After her admission to [facility] on 05/06 she underwent MRI brain which by report was negative for acute stroke or other acute process, EEG (also negative for seizure by report), and was treated for ROXANA which by the family's report may have been due to IV CT contrast. By report her creatinine was as high as 6. During her stay at [facility] she developed significant mental status changes and was lethargic. On 05/09/25, she was presumptively treated her for possible seizure and Keppra 500mg BID was started about that time. She subsequently developed severe left arm pain around 05/11/25, and the left arm pain progressed over a 3-4 day period to the point of any movement of the left arm/shoulder caused exquisite pain. #septic arthritis of Left Shoulder - present on admission - -MRI L shoulder on hospital day #1 showed glenohumeral joint effusion as well as ?bone marrow edema with cystic changes and erosion in superior facet of greater tuberosity -Dr Geovani Rubin - orthopedics - subsequently performed arthrocentesis of the L shoulder yielding 10ml of fluid and gram stain +GPC -crystal analysis negative -cell counts - WBCs 75,000 -with leukocytosis, elevated ESR/CRP, and the joint fluid findings along with clinical picture this was all concerning for L shoulder septic arthritis -POD #4 - -s/p I & D of the L shoulder by Dr uRbin -gross purulent fluid found in the L shoulder joint during the I/D -daptomycin IV started 05/15 -3 cultures from left shoulder all + for MSSA -an intra-op culture from the subdeltoid space grew MSSA as well as cutibacterium acnes (this latter organism just popped up on report late today) -remains on IV cefazolin -I corresponded with the pt's daughter re: possible cephalexin allergy -daughter not entirely certain what the reaction was, but possibly was just adverse rxn (nausea) -daughter comfortable with starting IV cefazolin and observing for any adverse rxn; thus far patient has had NO issues with IV cefazolin -ID advising IV cefazolin for 6 weeks; has central A-port in place -initially some concern for osteomyelitis of the greater tuberosity of left shoulder on MRI but addendum was placed on MRI report and radiology did not feel that OM was present -of note: add a dedicated agent for the cutibacterium? change cefazolin to unasyn? add doxycycline or minocycline to IV cefazolin? other? -on 05/21 will need to reach out to ID -ID consult and recs appreciated -blood cx's remain negative to date -pain control -- norco prn, tylenol 500 TID scheduled -cause of septic shoulder.....did she seed the joint from septic left arm phlebitis? other cause? -the asplenic state and her T1DM are two set-ups for increased risk of any infectious process #acute left cephalic vein phlebitis/thrombosis - present on admission - improving - -phlebitis was due to a prior IV site in that arm at outside hospital -unfortunately cannot use NSAIDs due to ROXANA/CKD -warm compresses prn -cont her baby aspirin that is chronic for her -did the phlebitis become "septic" leading to her septic arthritis of the left shoulder? -this area of phlebitis may have been contributing to the elevated CRP -fortunately CRP continues to improve #acute metabolic encephalopathy - present on admission - improving/resolving - -likely multifactorial - ROXANA, sepsis/septic L shoulder, head injury/concussion, post-seizure (?) -toxic effects from oxycodone as well as Keppra also possible -plan - -cont supportive care for ROXAAN -cont IV antibiotics for septic L shoulder -consider repeat MRI brain when able -did have MRI brain at [facility] -- I reviewed this MRI with our radiologist and NO acute CVA seen on that MRI; 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 seen only -for night-time - schedule melatonin to maintain sleep-wake cycle #seizure-like activity vs syncope - recurrent episodes over last 1-2 years - -most recent episode was 05/06/25 -appreciate consultation by Dr Dela Cruz from [facility] -will continue keppra 500mg BID for now to cover for possible seizures -keppra level returned at 42 (range up to 40 is normal) -defer dose adjustments to neurology -checked echo - nothing on such that would have led to syncope -telemetry thus far negative for a.fib/flutter -orthostatic BPs negative -high fall risk - suspect she likely has diabetic neuropathy at baseline but interestingly denies paresthesias -checked B12 level - wnl -B1 level pending -Lyme screen negative -Dr Dela Cruz advised a repeat MRI brain when able (with contrast if renal function allows); agree with such #ambulatory dysfunction/gait disturbance/frequent falls - -see above -PT and OT consults appreciated -gait issues 2nd to diabetic neuropathy? -rehab recommended - referral to [facility] location made by case management #long-standing T1DM - -has been alternating recently between twice daily Toujeo and Lantus at home -remains on lantus 20 units HS, 15 units qam, and novolog - CF 35, carb ratio 1:12 -AM BSGs are trending lower -- cut the AM lantus to 10 units , reduce HS lantus to 15 units -cont novolog - CF 35 and carb ratio to 1:12 -Hba1c 7.4% #CKD, stage 3b/4 - with recent ROXANA - -I obtained about 1 year of labs from her PCP today -creatinine 01/2025 was 1.8 -creatinine 10/2024 was 1.6 -creatinine prior to October was 1.4 to 1.5 range -by report her Cr was nearly 6 while at [facility] -Cr has improved to 1.99 which is very near her most recent baseline -BMP am #ROXANA - present on admission - improving - -had CT a/p at [place] during recent stay; I reviewed this CT with our radiologist -- NO obstruction seen on CT; kidneys anatomically wnl -BMP in am -cont to hold losartan #HTN - -cont home meds but hold losartan due to ROXANA / elevated creatinine #hypothyroidism - -TSH minimally elevated at 7.6 -in light of illness would leave synthroid as is and repeat TSH in 4 weeks as outpatient #h/o head injury - multiple occurrences - -suspect a concussion from her recent head injury on 05/06/25 -also had head injury 02/2025 and probably on prior falls as well #hyperlipidemia - -can resume statin (simvastatin HS) #LAKISHA - untreated - -consider overnight oxymetry study closer to d/c to see if she qualifies for night-time O2 -cannot tolerate NIPPV unfortunately #??recent dx of babesiosis?? - -uncertain details on this -PCP told her family she has had babesiosis in the recent past ?? -smear is negative; sent DNA test, still pending -no clinical evidence of this tick-borne illness based on history or labs #h/o CAD - -no ischemic sx's at this time -mild troponin elevation likely myocardial demand ischemia in setting of ROXANA, other acute medical issues #post-splenectomy state - -did confirm with pt's family -- she DID get the necessary encapsulated pathogen vaccines - pneumococcal, HIB, etc. -- post splenectomy #DVT prophylaxis - -heparin 5000 BID; increase the dose if there is further renal recovery appreciate ortho assistance updated pt's daughter Juliann Mejia by phone 05/17 updated pt's daughter Juliann via [facility] correspondence 05/18 updated pt's other daughter & on 05/19 at bedside updated pt's daughter Juliann via [facility] correspondence 05/20 dispo - [facility], [facility] Admission and Anticipated Discharge Date Admission Date: May 15, 2025 Subjective no events overnight tele stable/wnl eating well drinking well mild L shoulder pain only no pain in left forearm anxious to get out of hospital [facility] referral made ([place] location) - she is not opposed to rehab she is happy with her progress Review of Systems Review of Systems: gen - no fevers psych - no confusion last pm pulm - no dyspnea GI - no abd pain or N/V; +stools Physical Exam Physical Exam: gen - resting in bed; awake/alert/oriented x 3; NAD; looks very good today HENT - MMM, no thrush neck - no JVD heart - RRR, s1 s2, no murmur; port R upper chest clean lungs - CTA b/l with decreased BS L base only abd - soft NT ND BS+; no HSM ext - no edema of legs, pulses 2+ b/l feet; edema left arm again improved (mild at most) musculo - left shoulder/arm in sling; dressing intact L shoulder psych - a/o x 3 skin - left forearm - area of phlebitis with surrounding erythema and palpable cord - receding; warmth much better; nontender; generalized edema from the mid- upper arm to the hand 1+ --> significantly improved Results & Data Results & Data Vital Signs (Past 12 Hours) Vital Signs Temp Pulse Pulse Resp BP BP Pulse Ox 05/20/25 19:20 36.8 C 60 20 159/69 H 96 05/20/25 14:31 60 05/20/25 12:45 62 05/20/25 11:25 36.8 C 57 L 20 157/71 H 98 O2 Del Method 05/20/25 19:20 Room Air 05/20/25 14:31 05/20/25 12:45 05/20/25 11:25 Room Air Laboratory Results Laboratory Results - last 24 hr 05/15/25 05/20/25 05/20/25 15:40 05:24 07:22 WBC 7.61 RBC 2.76 L Hgb 8.6 L Hct 26.1 L MCV 94.6 MCH 31.2 MCHC 33.0 RDW Std Deviation 45.4 RDW Coeff of Shruthi 13.3 Plt Count 553 H MPV 10.3 Sodium 139 Potassium 3.8 Chloride 104 Carbon Dioxide 29 Anion Gap 6 BUN 35 H Creatinine 1.99 H Est Cr Clr Drug Dosing 29.9 eGFR 26.87 BUN/Creatinine Ratio 17.6 Glucose 64 L POC Glucose 61 L* Calcium 8.7 C-Reactive Protein Levetiracetam 42.5 H 05/20/25 05/20/25 05/20/25 08:32 11:22 15:56 WBC RBC Hgb Hct MCV MCH MCHC RDW Std Deviation RDW Coeff of Shruthi Plt Count MPV Sodium Potassium Chloride Carbon Dioxide Anion Gap BUN Creatinine Est Cr Clr Drug Dosing eGFR BUN/Creatinine Ratio Glucose POC Glucose 146 H 186 H 189 H Calcium C-Reactive Protein Levetiracetam Diagnostic Findings Microbiology 05/15/25 Unknown Shoulder,Left Gram Stain - Final 05/15/25 Unknown Shoulder,Left Aerobic and Anaerobic Culture - Final Staphylococcus aureus 05/16/25 14:02 Shoulder,Left Gram Stain - Final 05/16/25 14:02 Shoulder,Left Aerobic and Anaerobic Culture - Preliminary Staphylococcus aureus Cutibacterium acnes 05/16/25 14:02 Shoulder,Left Gram Stain - Final 05/16/25 14:02 Shoulder,Left Aerobic and Anaerobic Culture - Preliminary Staphylococcus aureus 05/15/25 19:41 Blood Aerobic Blood Culture - Preliminary No growth in Aerobic bottle after 48 hours. 05/15/25 19:41 Blood Anaerobic Blood Culture - Preliminary No growth in Anaerobic bottle after 48 hours. 05/15/25 19:48 Blood Aerobic Blood Culture - Preliminary No growth in Aerobic bottle after 48 hours. 05/15/25 19:48 Blood Anaerobic Blood Culture - Preliminary No growth in Anaerobic bottle after 48 hours. PG Care Time/CCT Total # of Minutes Spent Total Time Spent with Patient: Total time spent is greater than 50% in coordination of care (as documented) at patient's floor/unit and/or counseling patient: Coding Level of Care Code 80674 SUB INP/OBS CARE 3/50MIN Diagnoses Septic arthritis of shoulder, left M00.9 Cephalic vein thrombosis, left I82.612 Acute metabolic encephalopathy G93.41 ROXANA (acute kidney injury) N17.9 Seizure-like activity R29.818 Elevated troponin R79.89 Hypothyroidism E03.9 Essential hypertension I10 Type 1 diabetes E10.9 CKD (chronic kidney disease) N18.9 Chronic kidney disease stage: unspecified stage Progressive neurologic decline R29.818 LAKISHA (obstructive sleep apnea) G47.33 Frequent falls R29.6 CAD (coronary artery disease) I25.10 Status post splenectomy Z90.81 (10) CKD (chronic kidney disease) Chronic kidney disease stage: unspecified stage Qualified Code(s): N18.9 - Chronic kidney disease, unspecified
[2025-05-20] MEDS: LANTUS PER UNIT CHARGE SQ SCH (21:23)
[2025-05-21 06:26] LABS: Hematocrit (blood only) 26.4 % (37.0-47.0); Hemoglobin 8.8 g/dL (12.0-16.0); Mean Corpuscular Hemoglobin 31.5 pg (25.0-34.0); Mean Corpuscular Volume 94.6 fL (80.0-100.0); Platelet Count 594 K/uL (130-400); RDW Standard Deviation 45.6 fL (36.4-46.3); Red Blood Count 2.79 M/uL (4.20-5.40); White Blood Count 8.11 K/ul (4.8-10.8)
[2025-05-21 07:04] LABS: Anion Gap 6.0 (3-11); Blood Urea Nitrogen 33.0 mg/dl (6-23); Calcium 8.7 mg/dl (8.6-10.3); Carbon Dioxide 29.0 mmol/L (21-32); Chloride 105.0 mmol/L (98-107); Creatinine Clr Calc Pharmacy 34.8 ml/min; Glucose 149.0 mg/dl (70-99(Fasting)); Iron 29.0 mcg/dl (35-150); Potassium 4.0 mmol/L (3.5-5.1); Sodium 140.0 mmol/L (136-145); Total Iron Binding Cap Calc 164.0 mcg/dl (250-450); Transferrin 117.0 mg/dl (200-360); Transferrin (FE) Percent Satur 18.0 % (15-50)
[2025-05-21 07:24] LABS: Ferritin 691.2 ng/ml (8-388)
--- NOTE | 2025-05-21 08:03 | Infectious Disease Progress Nt ---
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, ?babesiosis, chronic ambulatory dysfunction/balance difficulties, hypothyroidism, history of splenic laceration & rib fractures s/p trauma 02/2025 with resulting splenectomy & trauma ICU stay at [facility] [place], seizure vs syncope on several occasions in the last year, ?underlying cognitive impairment, CKD, HLD, ?CAD (not treated with stents), recent admission to [facility] 05/06-05/15 after an unwitnessed fall followed by seizure v syncope and tx for ROXANA who presented on 05/15 after having been discharged from [facility] earlier that day with confusion, severe left arm pain. On admission, she was afebrile. WBC 10.89. Cr 2.99. AST/ALT wnl. ESR 86, CRP 10.3>>17>10.84. UA neg. CXR with LLL opacity could be atelectasis or PNA. LUE doppler with SVT in left cephalic vein. XR left arm unremarkable. MRI left shoulder with moderate glenohumeral joint effusion, subacromial/deltoid and subcoracoid bursitis, bone marrow edema with cystic changes and erosion in superior facet of greater tuberosity. S/p arthrocentesis of left shoulder on 05/15, 10 cc of cloudy fluid noted, WBC 75,250, c/f septic arthritis. S/p OR on 05/16 and underwent left shoulder I+D (per op note, debrided all devitalized tissue down to the level of bone). OR cx with MSSA. BCX ngtd. TTE with mild MR. ID consulted 05/19. Given bone marrow edema, I had contacted radiology for clarification. Updated MRI report noted cystic changes and marrow edema at the greater tuberosity supraspinatus enthesis is degenerative due to the underlying cuff tear and tendinopathy and unlikely to be of infective etiology. I discussed case with our [facility] orthopedic ID, Dr. Rodriguez, and given this clinical picture, would treat for 6 weeks. Cefazolin should be sufficient for Cutibacterium, though that is rare growth in one culture and I suspect MSSA is the primary train driver of the infection. She had a man[place] joint infection, possibly related to her prior fall/injury. TTE and Blood cx are negative. # Left shoulder [place] joint septic arthritis s/p I+D on 05/16 (cx MSSA, C utibacterium acnes) # Left greater tuberosity bone marrow edema with cystic changes and erosion # Left cephalic thrombophlebitis # Chest port # H/o T1DM # ROXANA Cr improving - Alpa increased dose of cefazolin to 2g IV q8h (CrCl 34) - plan for 6 weeks of therapy, start 05/16, end 06/27/25 - monitor weekly CBC w diff, CMP, ESR, CRP - she will follow up at our OPAT clinic, see below for details --- Outpatient Discharge summary, Discharging Physician please order the following on discharge: Diagnosis: Left shoulder [place] joint septic arthritis, probable osteomyelitis Organism: MSSA Antibiotic: cefazolin 2g IV q12h Start of therapy: 05/16 End of therapy: 06/27/25 Labs needed and frequency : weekly CBC w diff, CMP, ESR, CRP Labs should be faxed to ID office attention Zeenat Rodriguez ID Connect Appointment-time frame 2-3 weeks The Infectious Disease (ID) clinic will contact the patient to schedule a follow-up appointment. If you have not heard from the clinic within one week of discharge, please call the ID clinic at [phone] and ask for Zeenat Rodriguez. Clinic Address [address] [place] [address] Office (P) [phone] -- Will discontinue active follow up at this time. Please do not hesitate to reconsult the Infectious Diseases service as needed. Karloine Soto MD [facility], Division of Infectious Diseases IDConnect: [phone] Admission and Anticipated Discharge Date Admission Date: May 15, 2025 Subjective This patient recommendation is based on a telemedicine consult request which was completed asynchronously through chart review and information provided by the primary physician. The patient was not seen or examined today. The evaluation is consultative in nature and all patient care and treatment decisions can either be accepted or rejected by the patient's primary hospital-based treating physician using their own independent medical judgment for their patient. Time Spent Reviewing Chart: 31+ minutes MRI addendum and cultures noted. Results & Data Vital Signs (Past 12 Hours) Vital Signs Temp Pulse Pulse Resp BP BP Pulse Ox 05/21/25 07:56 36.5 C 64 23 189/72 H 95 05/21/25 02:49 37.1 C 58 L 12 141/87 H 97 05/20/25 22:43 36.8 C 63 12 174/79 H 97 O2 Del Method 05/21/25 07:56 Room Air 05/21/25 02:49 Room Air 05/20/25 22:43 Room Air Laboratory Results Labs reviewed. 05/15 BCX: ngtd 05/15 WCX: MSSA 05/16 OR cx (subdeltoid space): MSSA, Cutibacterium acnes 05/16 OR cx (intraarticular left shoulder tissue): MSSA Abx Cefazolin 05/19- Vanc 05/16 Dapto 05/15-05/18 Diagnostic Findings Imaging reviewed.
--- NOTE | 2025-05-21 13:40 | Hospitalist Progress Note ---
Date of Service May 21, 2025 Assessment & Plan (1) Septic arthritis of shoulder, left: (2) Cephalic vein thrombosis, left: (3) Acute metabolic encephalopathy: (4) ROXANA (acute kidney injury): (5) Seizure-like activity: (6) Elevated troponin: (7) Hypothyroidism: (8) Essential hypertension: (9) Type 1 diabetes: (10) CKD (chronic kidney disease): (11) Progressive neurologic decline: (12) LAKISHA (obstructive sleep apnea): (13) Frequent falls: (14) CAD (coronary artery disease): (15) Status post splenectomy: Plan Very complicated 69yo female with long-standing T1DM diagnosed in late teenage years, LAKISHA not on CPAP, HTN, remote h/o ITP, ?babesiosis, chronic ambulatory d ysfunction/balance difficulties, hypothyroidism, history of splenic laceration & rib fractures s/p trauma 02/2025 with resulting splenectomy & trauma ICU stay at [facility], history of seizure vs syncope on several occasions in the last year, question of underlying cognitive impairment, CKD unknown stage, hyperlipidemia, and ?CAD (not treated with stents) who presents after having been discharged from [facility] earlier today. Ms Ibarra was admitted to [facility] on 05/06/25 after having an unwitnessed fall followed by an episode of seizure vs syncope. The latter was witnessed by her (see details below). After her admission to [facility] on 05/06 she underwent MRI brain which by report was negative for acute stroke or other acute process, EEG (also negative for seizure by report), and was treated for ROXANA which by the family's report may have been due to IV CT contrast. By report her creatinine was as high as 6. During her stay at [facility] she developed significant mental status changes and was lethargic. On 05/09/25, she was presumptively treated her for possible seizure and Keppra 500mg BID was started about that time. She subsequently developed severe left arm pain around 05/11/25, and the left arm pain progressed over a 3-4 day period to the point of any movement of the left arm/shoulder caused exquisite pain. #MSSA Septic arthritis of Left Shoulder - present on admission - -MRI L shoulder on hospital day #1 showed glenohumeral joint effusion as well as ?bone marrow edema with cystic changes and erosion in superior facet of greater tuberosity -Dr Geovani Rubin - orthopedics - subsequently performed arthrocentesis of the L shoulder yielding 10ml of fluid and gram stain +GPC -s/p I & D of the L shoulder by Dr Rubin 05/16/2025 -gross purulent fluid found in the L shoulder joint during the I/D -daptomycin IV started 05/15, switched to cefazolin 05/19 -3 cultures from left shoulder all + for MSSA -an intra-op culture from the subdeltoid space grew MSSA as well as cutibacterium acnes -blood cx's remain negative to date - although notably was on ceftriaxone for cellulitis at [facility] therefore possible had MSSA bacteremia although cleared on cultures here -ID consult and recs appreciated: Diagnosis: Left shoulder unga joint septic arthritis, probable osteomyelitis Organism: MSSA, Cutibacterium acnes Antibiotic: cefazolin 2g IV q8h or 6g IV continuous infusion q24h Start of therapy: 05/16 End of therapy: 06/27/25 -cause of septic shoulder.....did she seed the joint from septic left arm phlebitis? other cause? -the asplenic state and her T1DM are two set-ups for increased risk of any infectious process #Acute left cephalic vein phlebitis/thrombosis - present on admission - improving - -phlebitis was due to a prior IV site in that arm at outside hospital -warm compresses prn #Acute metabolic encephalopathy - present on admission - resolved -likely multifactorial - ROXANA, sepsis/septic L shoulder, head injury/concussion, post-seizure (?), oxycodone -plan - -cont supportive care for ROXANA -cont IV antibiotics for septic L shoulder -repeat Brain MRI w/wo IV contrast today -for night-time - schedule melatonin to maintain sleep-wake cycle #seizure-like activity vs syncope - recurrent episodes over last 1-2 years - -most recent episode was 05/06/25 -appreciate consultation by Dr Dela Cruz from [facility] -will continue keppra 500mg BID for now to cover for possible seizures -keppra level returned at 42 (range up to 40 is normal), although this was random level on admission, discussed with Dr Baxter and plan on getting trough tomorrow with no adjustments in dose -checked echo - nothing on such that would have led to syncope -telemetry negative for a.fib/flutter -orthostatic BPs negative -high fall risk - suspect she likely has diabetic neuropathy at baseline but interestingly denies paresthesias -checked B12 level - wnl -B1 level pending -Lyme screen negative -Dr Dela Cruz advised a repeat MRI brain when able; planning on this today 05/21 #ambulatory dysfunction/gait disturbance/frequent falls - -PT and OT consults appreciated -gait issues 2nd to diabetic neuropathy +/- critical illness myopathy -rehab recommended - referral to [facility] location made by case management #long-standing T1DM - -has been alternating recently between twice daily Toujeo and Lantus at home -remains on lantus 20 units HS, 15 units qam, and novolog - CF 35, carb ratio 1:12 -AM BSGs are trending lower -- reduced AM lantus to 10 units and HS lantus to 15 units, will consider higher dose in AM tomorrow pending serial glucose checks as usually AM glucose has been low -cont novolog - CF 35 and carb ratio to 1:12 -Hba1c 7.4% #CKD, stage 3b/4 - with recent ROXANA (now resolved) -I obtained about 1 year of labs from her PCP today -creatinine 01/2025 was 1.8 -creatinine 10/2024 was 1.6 -creatinine prior to October was 1.4 to 1.5 range -by report her Cr was nearly 6 while at [facility] -CT without obstruction -Cr has improved to 1.71 which is close to baseline #HTN - -cont home meds but hold losartan/furosemide due to ROXANA / elevated creatinine -increase amlodipine to 10mg PO daily to offset stopping other medications, discussed side effects of this with patient #hypothyroidism - -TSH minimally elevated at 7.6 -in light of illness would leave Synthroid as is and repeat TSH in 4 weeks as outpatient #h/o head injury - multiple occurrences - -suspect a concussion from her recent head injury on 05/06/25 -also had head injury 02/2025 and probably on prior falls as well #hyperlipidemia - -can resume statin (simvastatin HS) #LAKISHA - untreated - -consider overnight oxymetry study closer to d/c to see if she qualifies for night-time O2 -cannot tolerate NIPPV unfortunately #??recent dx of babesiosis?? - -uncertain details on this -PCP told her family she has had babesiosis in the recent past ?? -smear is negative; sent DNA test, still pending -no clinical evidence of this tick-borne illness based on history or labs #h/o CAD - -no ischemic sx's at this time -mild troponin elevation likely myocardial demand ischemia in setting of ROXANA, other acute medical issues #post-splenectomy state - -previously received necessary encapsulated pathogen vaccines - pneumococcal, HIB, etc. -- post splenectomy VTE prophylaxis - heparin 5000 BID; increase the dose if there is further renal recovery Disposition - no need for ongoing telemetry, downgrade to med/surg, medically stable for discharge to [facility] Admission and Anticipated Discharge Date Admission Date: May 15, 2025 Subjective No significant change in shoulder strength. Having difficulty listing her arm up at all against gravity. Afebrile. Elevated BP 185/80 - no dizziness. Keen for discharge from hospital. Physical Exam Respiratory: normal respiratory effort, lungs clear to auscultation Cardiovascular: Rate/Rhythm: regular rate and regular rhythm Heart Sounds: + murmur Musculoskeletal: minimal movement of left arm against gravity Skin: generalized edema of left upper extremity, small area of phlebitis much improved from prior pictures from patient Psychiatric: A+Ox3, euthymic affect Results & Data Results & Data Vital Signs (Past 12 Hours) Vital Signs Temp Pulse Pulse Resp BP BP Pulse Ox 05/21/25 11:34 36.4 C L 59 L 23 185/80 H 97 05/21/25 07:56 36.5 C 64 23 189/72 H 95 05/21/25 02:49 37.1 C 58 L 12 141/87 H 97 O2 Del Method 05/21/25 11:34 Room Air 05/21/25 07:56 Room Air 05/21/25 02:49 Room Air PG Care Time/CCT Total # of Minutes Spent Total Time Spent with Patient: Total time spent is greater than 50% in coordination of care (as documented) at patient's floor/unit and/or counseling patient: Coding Level of Care Code 01843 SUB INP/OBS CARE 3/50MIN Diagnoses Septic arthritis of shoulder, left M00.9 Cephalic vein thrombosis, left I82.612 Acute metabolic encephalopathy G93.41 ROXANA (acute kidney injury) N17.9 Seizure-like activity R29.818 Elevated troponin R79.89 Hypothyroidism E03.9 Essential hypertension I10 Type 1 diabetes E10.9 CKD (chronic kidney disease) N18.9 Chronic kidney disease stage: unspecified stage Progressive neurologic decline R29.818 LAKISHA (obstructive sleep apnea) G47.33 Frequent falls R29.6 CAD (coronary artery disease) I25.10 Status post splenectomy Z90.81 (10) CKD (chronic kidney disease) Chronic kidney disease stage: unspecified stage Qualified Code(s): N18.9 - Chronic kidney disease, unspecified
[2025-05-21] MEDS: LORazepam 0.5 MG TAB PO PRN (13:51)
[2025-05-21] MEDS: GADOBUTROL 65ML VIAL IV ONE (13:52)
[2025-05-21] MEDS: GADOBUTROL 30ML VIAL IV ONE (14:45)
--- NOTE | 2025-05-21 15:08 | Magnetic Resonance Report ---
MRI OF THE BRAIN COMBO CLINICAL HISTORY: Seizure-like activity. COMPARISON STUDY: CT of the brain dated 05/06/2025. MRI of the brain dated 05/09/2025. TECHNIQUE: MRI of the brain was performed utilizing various T1 and T2-weighted sequences in the axial , sagittal, and coronal planes. Contrast-enhanced sequences were acquired following the administratio n of 9.5 cc of Gadavist. FINDINGS: Brain parenchyma: There is age-related involutional change noting mild to moderate subcortical and pe riventricular microangiopathic disease. There is no hemorrhage or mass effect. There is no restricted diffusion to suggest acute ischemia. No enhancing mass lesion is identified on the postcontrast imag es. Thompson-white matter differentiation is preserved. No extra-axial fluid collection is seen. The cere bellar tonsils are normal in configuration. The hippocampi are normal and symmetric. Ventricles, sulci, and cisterns: Prominent secondary to change. Pituitary and sella: Unremarkable. Intracranial vasculature: Normal flow voids are maintained at the skull base. Orbits: The bony orbits are grossly intact. Orbital contents are normal in appearance noting bilatera l ocular lens implants. Sinuses and mastoids: There are left larger than right mastoid effusions. The paranasal sinuses are c lear. Calvarium: Unremarkable. Cervical cord: Partially visualized cervical spinal cord is normal in morphology and signal intensity . IMPRESSION: No acute intracranial abnormality. ACT 112: Negative or not required by law. Electronically signed by: Roc Murguia M.D. 05/21/2025 3:06 PM
[2025-05-22] MEDS ORDERED: PHARMACY GLYCEMIC MGMT CONSULT PRN (11:42)
--- NOTE | 2025-05-22 12:01 | Pharmacy Report ---
Pharmacy Glycemic Short Note 2 - Date of Service May 22, 2025 - Glycemic Short BSG Results (Last 24 hours): 05/21/25 05/21/25 05/22/25 16:40 20:42 07:24 POC Glucose 170 H 167 H 261 H 05/22/25 05/22/25 11:22 11:30 POC Glucose 311 H* 317 H* OUTPATIENT ANTIDIABETIC REGIMEN: * Toujeo 30 units SQ BID * Humalog TID with meals * A1c 7.4% 05/17/25 ASSESSMENT: * 69 yo F with long-standing T1DM diagnosed in late teenage years, complicated PMH, see hospitalist note, left shoulder [place] joint septic arthritis, probable osteomyelitis. Hyperglycemic at this time. * AM Hypoglycemia when patient received 30 units of Lantus a day with 20 of those units scheduled HS, will continue with only 25 units of basal at this time to prevent hypoglycemia, but tighten CF/CR and lower goal range to improve glycemic control. May consider tighter NovoLog parameters with breakfast only. PLAN FOR INPATIENT GLYCEMIC CONTROL: * Hold outpatient diabetes medications * Basal insulin * Lantus 10 units SQ AM, 15 units HS * Bolus insulin * NovoLog per scale ACHS or Q6hrs while NPO * Goal Range: Low 120 mg/dL - High 150 mg/dL * Correction Factor: 25 mg/dL/unit * Nutritional / Prandial insulin per carb ratio of 1 unit per 10 grams CHO consumed
--- NOTE | 2025-05-22 14:13 | Hospitalist Progress Note ---
Date of Service May 22, 2025 Assessment & Plan (1) Septic arthritis of shoulder, left: (2) Cephalic vein thrombosis, left: (3) Acute metabolic encephalopathy: (4) ROXANA (acute kidney injury): (5) Seizure-like activity: (6) Elevated troponin: (7) Hypothyroidism: (8) Essential hypertension: (9) Type 1 diabetes: (10) CKD (chronic kidney disease): (11) Progressive neurologic decline: (12) LAKISHA (obstructive sleep apnea): (13) Frequent falls: (14) CAD (coronary artery disease): (15) Status post splenectomy: Plan Very complicated 69yo female with long-standing T1DM diagnosed in late teenage years, LAKISHA not on CPAP, HTN, remote h/o ITP, ?babesiosis, chronic ambulatory d ysfunction/balance difficulties, hypothyroidism, history of splenic laceration & rib fractures s/p trauma 02/2025 with resulting splenectomy & trauma ICU stay at [facility], history of seizure vs syncope on several occasions in the last year, question of underlying cognitive impairment, CKD unknown stage, hyperlipidemia, and ?CAD (not treated with stents) who presents after having been discharged from [facility] earlier today. Ms Ibarra was admitted to [facility] on 05/06/25 after having an unwitnessed fall followed by an episode of seizure vs syncope. The latter was witnessed by her (see details below). After her admission to [facility] on 05/06 she underwent MRI brain which by report was negative for acute stroke or other acute process, EEG (also negative for seizure by report), and was treated for ROXANA which by the family's report may have been due to IV CT contrast. By report her creatinine was as high as 6. During her stay at [facility] she developed significant mental status changes and was lethargic. On 05/09/25, she was presumptively treated her for possible seizure and Keppra 500mg BID was started about that time. She subsequently developed severe left arm pain around 05/11/25, and the left arm pain progressed over a 3-4 day period to the point of any movement of the left arm/shoulder caused exquisite pain. #MSSA Septic arthritis of Left Shoulder - present on admission - -MRI L shoulder on hospital day #1 showed glenohumeral joint effusion as well as ?bone marrow edema with cystic changes and erosion in superior facet of greater tuberosity -Dr Geovani Rubin - orthopedics - subsequently performed arthrocentesis of the L shoulder yielding 10ml of fluid and gram stain +GPC -s/p I & D of the L shoulder by Dr Rubin 05/16/2025 -gross purulent fluid found in the L shoulder joint during the I/D -daptomycin IV started 05/15, switched to cefazolin 05/19 -3 cultures from left shoulder all + for MSSA -an intra-op culture from the subdeltoid space grew MSSA as well as cutibacterium acnes -blood cx's remain negative to date - although notably was on ceftriaxone for cellulitis at [facility] therefore possible had MSSA bacteremia although cleared on cultures here -ID consult and recs appreciated: "Diagnosis: Left shoulder [place] joint septic arthritis, probable osteomyelitis Organism: MSSA, Cutibacterium acnes Antibiotic: cefazolin 2g IV q8h or 6g IV continuous infusion q24h Start of therapy: 05/16 End of therapy: 06/27/25" -cause of septic shoulder.....did she seed the joint from septic left arm phlebitis? other cause? -asplenia and T1DM -> increased risk of any infectious process #Acute left cephalic vein phlebitis/thrombosis - present on admission - i mproving - -phlebitis was due to a prior IV site in that arm at outside hospital -warm compresses prn -discussed US for DVT if getting worse but she'd like to hold off on this currently #Acute metabolic encephalopathy - present on admission - resolved -likely multifactorial - ROXANA, sepsis/septic L shoulder, head injury/concussion, post-seizure (?), oxycodone, underlying dementia Now resolved #seizure-like activity vs syncope - recurrent episodes over last 1-2 years - -most recent episode was 05/06/25 -appreciate consultation by Dr Dela Cruz [place] [facility] -will continue keppra 500mg BID for now to cover for possible seizures -keppra level returned at 42 (range up to 40 is normal), although this was random level on admission, discussed with Dr Baxter and plan on getting trough tomorrow with no adjustments in dose -checked echo - nothing on such that would have led to syncope -telemetry negative for a.fib/flutter -orthostatic BPs negative -high fall risk - suspect she likely has diabetic neuropathy at baseline but interestingly denies paresthesias -checked B12 level - wnl -B1 level elevated -Lyme screen negative -Brain MRI without acute pathology - Follow up neurology as outpatient (see last neuro progress note) #ambulatory dysfunction/gait disturbance/frequent falls - -PT and OT consults appreciated -gait issues 2nd to diabetic neuropathy +/- critical illness myopathy -rehab recommended - referral to [facility] location made by case management #long-standing T1DM - -has been alternating recently between twice daily Toujeo and Lantus at home -cont novolog - CF 35 and carb ratio to 1:12 -Hba1c 7.4% -increased glucose levels today will consult pharmacy for ongoing management #CKD, stage 3b/4 - with recent ROXANA (now resolved) -I obtained about 1 year of labs from her PCP today -creatinine 01/2025 was 1.8 -creatinine 10/2024 was 1.6 -creatinine prior to October was 1.4 to 1.5 range -by report her Cr was nearly 6 while at [facility] -CT without obstruction -Cr has improved to 1.71 which is close to baseline #HTN -cont home meds but hold losartan/furosemide due to ROXANA / elevated creatinine -continue on increased amlodipine dose 10mg PO daily - can take multiple days to start working #Hypothyroidism -TSH minimally elevated at 7.6 -in light of illness would leave Synthroid as is and repeat TSH in 4 weeks as outpatient #h/o head injury - multiple occurrences - -suspect a concussion from her recent head injury on 05/06/25 -also had head injury 02/2025 and probably on prior falls as well #LAKISHA - untreated - -overnight pulse oximetry ordered for tonight -cannot tolerate NIPPV unfortunately #h/o CAD / hyperlipidemia -no ischemic sx's at this time -mild troponin elevation likely myocardial demand ischemia in setting of ROXANA, other acute medical issues #post-splenectomy state - -previously received necessary encapsulated pathogen vaccines - pneumococcal, HIB, etc... VTE prophylaxis - heparin 5000 units SQ BID Disposition - no need for ongoing telemetry, downgrade to med/surg, medically stable for discharge to [facility] Admission and Anticipated Discharge Date Admission Date: May 15, 2025 Subjective No acute changes. Awaiting discharge to rehabilitation at this time. Physical Exam Respiratory: normal respiratory effort, lungs clear to auscultation Cardiovascular: Rate/Rhythm: regular rate and regular rhythm Heart Sounds: + murmur Musculoskeletal: minimal movement of left arm against gravity Skin: generalized edema of left upper extremity, small area of phlebitis much improved from prior pictures from patient Psychiatric: A+Ox3, euthymic affect Results & Data Results & Data Vital Signs (Past 12 Hours) Vital Signs Temp Pulse Pulse Resp BP Pulse Ox O2 Del Method 05/22/25 12:21 36.5 C 59 L 18 168/65 H 99 Room Air 05/22/25 08:23 36.6 C 64 20 181/75 H 98 Room Air PG Care Time/CCT Total # of Minutes Spent Total Time Spent with Patient: Total time spent is greater than 50% in coordination of care (as documented) at patient's floor/unit and/or counseling patient: Coding Level of Care Code 71663 SUB INP/OBS CARE 2/35MIN Diagnoses Septic arthritis of shoulder, left M00.9 Cephalic vein thrombosis, left I82.612 Acute metabolic encephalopathy G93.41 ROXANA (acute kidney injury) N17.9 Seizure-like activity R29.818 Elevated troponin R79.89 Hypothyroidism E03.9 Essential hypertension I10 Type 1 diabetes E10.9 CKD (chronic kidney disease) N18.9 Chronic kidney disease stage: unspecified stage Progressive neurologic decline R29.818 LAKISHA (obstructive sleep apnea) G47.33 Frequent falls R29.6 CAD (coronary artery disease) I25.10 Status post splenectomy Z90.81 (10) CKD (chronic kidney disease) Chronic kidney disease stage: unspecified stage Qualified Code(s): N18.9 - Chronic kidney disease, unspecified
[2025-05-23] MEDS: INSULIN ASPART PER UNIT CHARGE SC SCH (00:14)
[2025-05-23 06:45] LABS: Hematocrit (blood only) 28.4 % (37.0-47.0); Hemoglobin 9.3 g/dL (12.0-16.0); Mean Corpuscular Hemoglobin 30.6 pg (25.0-34.0); Mean Corpuscular Volume 93.4 fL (80.0-100.0); Platelet Count 605 K/uL (130-400); RDW Standard Deviation 46.0 fL (36.4-46.3); Red Blood Count 3.04 M/uL (4.20-5.40); White Blood Count 8.46 K/ul (4.8-10.8)
[2025-05-23 07:02] LABS: Anion Gap 7.0 (3-11); Blood Urea Nitrogen 30.0 mg/dl (6-23); Calcium 9.1 mg/dl (8.6-10.3); Carbon Dioxide 30.0 mmol/L (21-32); Chloride 104.0 mmol/L (98-107); Creatinine Clr Calc Pharmacy 32.9 ml/min; Glucose 119.0 mg/dl (70-99(Fasting)); Potassium 3.9 mmol/L (3.5-5.1); Sodium 141.0 mmol/L (136-145)
--- NOTE | 2025-05-23 11:04 | Pharmacy Report ---
Pharmacy Glycemic Short Note 2 - Date of Service May 23, 2025 - Glycemic Short BSG Results (Last 24 hours): 05/22/25 05/22/25 05/22/25 11:22 11:30 16:24 Glucose POC Glucose 311 H* 317 H* 209 H 05/22/25 05/23/25 05/23/25 20:16 00:10 03:05 Glucose POC Glucose 210 H 213 H 143 H 05/23/25 05/23/25 06:18 07:35 Glucose 119 H POC Glucose 134 H OUTPATIENT ANTIDIABETIC REGIMEN: * Toujeo 30 units SQ BID * Humalog TID with meals * A1c 7.4% 05/17/25 ASSESSMENT: 05/23: * Alina received a total of 68 units of insulin yesterday (25 units were basal and 43 units were bolus). * Fasting BSG was 134mg/dL this morning. Will continue the current basal/bolus regimen without change for now. 05/22: * 69 yo F with long-standing T1DM diagnosed in late teenage years, complicated PMH, see hospitalist note, left shoulder [place] joint septic arthritis, probable osteomyelitis. Hyperglycemic at this time. * AM Hypoglycemia when patient received 30 units of Lantus a day with 20 of those units scheduled HS, will continue with only 25 units of basal at this time to prevent hypoglycemia, but tighten CF/CR and lower goal range to improve glycemic control. May consider tighter NovoLog parameters with breakfast only. PLAN FOR INPATIENT GLYCEMIC CONTROL: * Hold outpatient diabetes medications * Basal insulin * Lantus 10 units SQ AM, 15 units HS * Bolus insulin * NovoLog per scale ACHS or Q6hrs while NPO * Goal Range: Low 120 mg/dL - High 150 mg/dL * Correction Factor: 25 mg/dL/unit * Nutritional / Prandial insulin per carb ratio of 1 unit per 10 grams CHO consumed
--- NOTE | 2025-05-23 11:37 | Hospitalist Progress Note ---
Date of Service May 23, 2025 Assessment & Plan (1) Septic arthritis of shoulder, left: (2) Cephalic vein thrombosis, left: (3) Acute metabolic encephalopathy: (4) ROXANA (acute kidney injury): (5) Seizure-like activity: (6) Elevated troponin: (7) Hypothyroidism: (8) Essential hypertension: (9) Type 1 diabetes: (10) CKD (chronic kidney disease): (11) Progressive neurologic decline: (12) LAKISHA (obstructive sleep apnea): (13) Frequent falls: (14) CAD (coronary artery disease): (15) Status post splenectomy: Plan Very complicated 69yo female with long-standing T1DM diagnosed in late teenage years, LAKISHA not on CPAP, HTN, remote h/o ITP, ?babesiosis, chronic ambulatory d ysfunction/balance difficulties, hypothyroidism, history of splenic laceration & rib fractures s/p trauma 02/2025 with resulting splenectomy & trauma ICU stay at [facility], history of seizure vs syncope on several occasions in the last year, question of underlying cognitive impairment, CKD unknown stage, hyperlipidemia, and ?CAD (not treated with stents) who presents after having been discharged from [facility] on 05/15/2025. Ms Ibarra was admitted to [facility] on 05/06/25 after having an unwitnessed fall followed by an episode of seizure vs syncope. The latter was witnessed by her (see details below). After her admission to [facility] on 05/06 she underwent MRI brain which by report was negative for acute stroke or other acute process, EEG (also negative for seizure by report), and was treated for ROXANA which by the family's report may have been due to IV CT contrast. By report her creatinine was as high as 6. During her stay at [facility] she developed significant mental status changes and was lethargic. On 05/09/25, she was presumptively treated her for possible seizure and Keppra 500mg BID was started about that time. She subsequently developed severe left arm pain around 05/11/25, and the left arm pain progressed over a 3-4 day period to the point of any movement of the left arm/shoulder caused exquisite pain. #MSSA Septic arthritis of Left Shoulder - present on admission Unknown etiology of septic shoulder, possible from septic left arm phlebitis, hx of T1 DM makes increased risk of any infectious process. MRI L shoulder on hospital day #1 showed glenohumeral joint effusion as well as ?bone marrow edema with cystic changes and erosion in superior facet of greater tuberosity Dr Geovani Rubin - orthopedics - subsequently performed arthrocentesis of the L shoulder yielding 10ml of fluid and gram stain +GPC s/p I & D of the L shoulder by Dr Rubin 05/16/2025 -gross purulent fluid found in the L shoulder joint during the I/D Cultures consistent w/ MSSA & cutibacterium acnes. ID consulted - recommending Ancef 2g IV q8h vs 6g IV continuous infusion q24h from 05/16/25 thru 06/27/2025. #Acute left cephalic vein phlebitis/thrombosis - present on admission - improving - phlebitis was due to a prior IV site in that arm at outside hospital warm compresses prn discussed US for DVT if getting worse but she'd like to hold off on this currently #Acute metabolic encephalopathy - present on admission - resolved -likely multifactorial - ROXANA, sepsis/septic L shoulder, head injury/concussion, post- seizure (?), oxycodone, underlying dementia #seizure-like activity vs syncope recurrent episodes over last 1-2 years; most recent episode was 05/06/25 Neuro consulted - keppra 500mg BID. Follow up outpatient for further workup in 2-3 weeks from discharge. Echo w/ Ef 60-65%; mild mitral regurg. - nothing that would lead to syncope. Orthostatic BPs neg; tele negative for arrhythmia B12 WNL, B1 elevated, Lyme negative Brain MRI negative High fall risk, concern for diabetic neuropathy recommend outpatient Holter monitor. #ambulatory dysfunction/gait disturbance/frequent falls PT and OT consulted --> rec rehab Accepted at [facility]. #long-standing T1DM has been alternating recently between twice daily Toujeo and Lantus at home cont novolog - CF 35 and carb ratio to 1:12 Hba1c 7.4% Referral to Endo on discharge. #CKD, stage 3b/4 - with recent ROXANA (now resolved) Labs from PCP reveal creatinine is in 1.4-1.8 range. Creat stable at 1.81. #HTN Losartan/Lasix on hold secondary to elevated creatinine --> can likely hold vs d/c on discharge. BP has been stable on amlodipine 10mg PO daily. #Hypothyroidism TSH minimally elevated at 7.6 in light of illness would leave Synthroid as is and repeat TSH in 4 weeks as outpatient #h/o head injury; multiple occurrences suspect a concussion from her recent head injury on 05/06/25 also had head injury 02/2025 and probably on prior falls as well #LAKISHA untreated overnight pulse oximetry ordered for tonight cannot tolerate NIPPV unfortunately #h/o CAD / hyperlipidemia no ischemic sx's at this time mild troponin elevation likely myocardial demand ischemia in setting of ROXANA, other acute medical issues #post-splenectomy state -previously received necessary encapsulated pathogen vaccines VTE prophylaxis - heparin 5000 units SQ BID Disposition - no need for ongoing telemetry, downgrade to med/surg, medically stable for discharge to [facility] - anticipate discharge tomorrow, 05/24 Code: full discussed w/ daughter 05/23. Admission and Anticipated Discharge Date Admission Date: May 15, 2025 Odalys Fuller was seen & examined this morning. She reports left arm pain but denies any additional complaints. Discussed discharge planning today. Physical Exam Physical Exam: General: NAD, VS: BP 121/73; P94; R18; T36.7C Resp: normal respiratory effort Extremities: Moves all extremities Neuro: A&O x3 Skin: intact Results & Data Results & Data Vital Signs (Past 12 Hours) Vital Signs Temp Pulse Pulse Resp BP Pulse Ox Pulse Ox 05/23/25 10:40 36.7 C 94 H 18 121/73 92 05/23/25 07:28 36.3 C L 69 17 164/98 H 96 05/23/25 07:23 36.6 C 92 H 17 106/65 93 05/23/25 03:26 57 L 96 05/23/25 01:00 61 167/68 H O2 Del Method O2 Del Method 05/23/25 10:40 Room Air 05/23/25 07:28 Room Air 05/23/25 07:23 Room Air 05/23/25 03:26 Room Air 05/23/25 01:00 PG Care Time/CCT Total # of Minutes Spent Total Time Spent with Patient: Total time spent is greater than 50% in coordination of care (as documented) at patient's floor/unit and/or counseling patient: Coding Level of Care Code 18705 SUB INP/OBS CARE 2/35MIN Diagnoses Septic arthritis of shoulder, left M00.9 Cephalic vein thrombosis, left I82.612 Acute metabolic encephalopathy G93.41 ROXANA (acute kidney injury) N17.9 Seizure-like activity R29.818 Elevated troponin R79.89 Hypothyroidism E03.9 Essential hypertension I10 Type 1 diabetes E10.9 CKD (chronic kidney disease) N18.9 Chronic kidney disease stage: unspecified stage Progressive neurologic decline R29.818 LAKISHA (obstructive sleep apnea) G47.33 Frequent falls R29.6 CAD (coronary artery disease) I25.10 Status post splenectomy Z90.81 (10) CKD (chronic kidney disease) Chronic kidney disease stage: unspecified stage Qualified Code(s): N18.9 - Chronic kidney disease, unspecified
[2025-05-23 19:38] VITALS: O2SAT 98
[2025-05-24 08:00] VITALS: BP 196/70; PULSE 63; RESP 18; TEMP 97.9
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
== END 2025-05-24 10:25 | disposition home or self-care (01) | DRG 510 ==
LOC: ED 14:59 → 2E 19:56 → SUATTDRO 19:56 → 2E 23:43 → 3N 05-23 02:26